=== PATIENT | female | born 1970 | race African-American/Black ===

== ENCOUNTER 2019-10-28 14:27 | Emergency (ER) | payer SELFPAY ==
[2019-10-28 14:40] VITALS: BP 157/79; PULSE 67; RESP 18; TEMP 37.4; O2SAT 100
--- NOTE | 2019-10-28 15:16 | ED.FEMALEGU ---
HPI - Female Genitourinary General Chief complaint: Upper Respiratory Infection Stated complaint: UTI Time Seen by Provider: 10/28/19 14:57 Source: patient and RN notes reviewed Mode of arrival: ambulatory Limitations: no limitations History of Present Illness HPI Narrative: Patient presents today complaining of urinary frequency for the past 2 weeks. Denies dysuria, urgency, abdominal pain, back pain. She has had a menstrual cycle every day for the last 6 weeks due to uterine fibroids that she is scheduled to have removed soon. MD elicited complaint: other (Urinary frequency) Related Data Home Medications Medication Instructions Recorded Confirmed clonazepam 0.5 mg PO DAILY 03/16/19 10/28/19 omeprazole 20 mg PO BID 03/16/19 10/28/19 thyroid (pork) [[place] Thyroid] 60 mg PO DAILY 03/16/19 10/28/19 hydroxyzine HCl 50 mg PO DIRECTED 10/28/19 10/28/19 ibuprofen 800 mg PO DIRECTED 10/28/19 10/28/19 norethindrone acetate 1 mg PO DAILY 10/28/19 10/28/19 quetiapine 25 mg PO DAILY 10/28/19 10/28/19 quetiapine 50 mg PO DAILY 10/28/19 10/28/19 Allergies Allergy/AdvReac Type Severity Reaction Status Date / Time hydrocodone Allergy Severe ANAPHYLAXIS Verified 11/26/17 03:34 codeine Allergy Unknown Other Verified 10/28/19 14:44 Dairy Allergy Severe RASH/INTESTINE Uncoded 11/26/17 03:34 INFECTION Review of Systems Review of Systems: Narrative: CONSTITUTIONAL: Denies body aches, fever, chills, or sweats. EYES: Denies visual changes, redness, or discharge. ENT: Denies rhinorrhea, congestion, sore throat, or otalgia. CARDIOVASCULAR: Denies chest pain, palpitations, or edema. RESPIRATORY: Denies cough or dyspnea. GASTROINTESTINAL: Denies abdominal pain, nausea, vomiting, or diarrhea. GENITOURINARY: Denies dysuria or hematuria.+ Frequency SKIN: Denies rash, itching, or wounds. MUSCULOSKELETAL: Denies back pain, joint pain, or myalgia. NEUROLOGIC: Denies headache, numbness, tingling, or weakness. PSYCH: Denies depression or anxiety. [facility] Past Medical History Medical History (Updated 10/28/19 @ 15:19 by Sarahy Garcia, [facility], ) Obesity Perimenopause Uterine fibroid Surgical History Surgical History Personal hx of gastric bypass Social History Social History (Updated 03/16/19 @ 17:55 by Keven Lee PA-C) Smoking status: Never smoker Alcohol intake: current Comments At time of signature, I have reviewed and agree with nursing past medical, surgical, social and family history unless otherwise noted. Please see nursing chart for further information. There is no relevant family history pertinent to the presenting complaint Exam Narrative: Exam Narrative: GENERAL: Well-appearing, well-nourished, and in no acute distress. HEAD: Normocephalic, atraumatic. EYES: EOMI. No redness or drainage. Conjunctivae normal. ENT: Mucous membranes pink and moist. NECK: Normal AROM. CHEST: No respiratory distress. Clear to auscultation. HEART: Regular rate and rhythm. No murmur appreciated. Normal peripheral pulses. ABDOMEN: Soft, nondistended, normal active bowel sounds. Mild tenderness to the suprapubic area. -CVAT MUSCULOSKELETAL: No bony tenderness. EXTREMITIES: Normal range of motion. No edema. SKIN: Warm, dry, no rash. Capillary refill normal. Normal skin turgor. NEURO: No focal deficits. Alert and oriented x3. Gait steady. PSYCH: Normal affect. No signs of depression or anxiety. Course Vital Signs Vital signs: Vital Signs Temperature 99.4 F 10/28/19 14:40 Pulse Rate 67 10/28/19 14:40 Respiratory Rate 18 10/28/19 14:40 Blood Pressure 157/79 H 10/28/19 14:40 Pulse Oximetry 100 10/28/19 14:40 Temperature 99.4 F 10/28/19 14:40 Pulse Rate 67 10/28/19 14:40 Respiratory Rate 18 10/28/19 14:40 Blood Pressure 157/79 H 10/28/19 14:40 Pulse Oximetry 100 10/28/19 14:40 Reviewed. Pt has been instructed to foll
== END 2019-10-28 15:20 | disposition home or self-care (01) ==
PROVIDERS: Emergency Provider Nurse Practitioner; PCP Family Medicine
DX: R35.0 Frequency of micturition (principal); Z98.84 Bariatric surgery status
CPT/HCPCS: 81003; 87086; 87088; 99213; G0463

== ENCOUNTER 2020-01-22 16:08 | Emergency (ER) | payer BC, MEDICAID, SELFPAY ==
--- NOTE | ~2020-01-22 | XR_ITS ---
EXAMINATION: XR knee RT 3V DATE: 01/22/2020 18:42 INDICATION: Right knee pain. Fall. TECHNIQUE: 3 views of right knee on 4 radiographs were obtained. COMPARISON: Right knee radiographs 03/23/16 FINDINGS: Bone alignment is normal. No fracture. There is moderate osteoarthritis of medial and lu lofemoral compartments and mild osteoarthritis of lateral compartment. There is a small knee joint ef fusion. IMPRESSION: 1. Moderate right knee osteoarthritis. 2. Small right knee joint effusion. Reviewed, dictated and finalized at location A. CAL INVESTIGATOR
[2020-01-22 16:11] VITALS: BP 133/80; PULSE 98; RESP 16; TEMP 36.5; O2SAT 99
--- NOTE | 2020-01-22 19:25 | ED.GENADULT ---
HPI - General Adult General Chief complaint: Recheck/Abnormal Lab/Rx <Dina Molina PA-C - Last Filed: 01/22/20 19:30> Stated complaint: needs medication refill <Dina Molina PA-C - Last Filed: 01/22/20 19:30> Time Seen by Provider: 01/22/20 17:41 <Dina Molina PA-C - Last Filed: 01/22/20 19:30> Source: patient <LULU Muller Last Filed: 01/22/20 19:30> Mode of arrival: ambulatory <LULU Muller Last Filed: 01/22/20 19:30> Limitations: no limitations <LULU Muller Last Filed: 01/22/20 19:30> History of Present Illness HPI narrative: Patient presents with chief complaint of pain to the right knee after falling onto it a few days ago. Patient states that she is wearing her knee wrap which she uses as needed due to her arthritic pain. Patient also came to the emergency department for refill of her clonazepam. She states she was discharged from [facility] on and her clonazepam was not given back to her. Patient denies any other injuries or concerns. <Dina Molina PA-C - Last Filed: 01/22/20 19:30> Related Data Home medications: Home Medications Medication Instructions Recorded Confirmed clonazepam 0.5 mg PO DAILY 03/16/19 10/28/19 omeprazole 20 mg PO BID 03/16/19 10/28/19 thyroid (pork) [[place] Thyroid] 60 mg PO DAILY 03/16/19 10/28/19 hydroxyzine HCl 50 mg PO DIRECTED 10/28/19 10/28/19 ibuprofen 800 mg PO DIRECTED 10/28/19 10/28/19 norethindrone acetate 1 mg PO DAILY 10/28/19 10/28/19 quetiapine 25 mg PO DAILY 10/28/19 10/28/19 quetiapine 50 mg PO DAILY 10/28/19 10/28/19 <LULU Muller Last Filed: 01/22/20 19:30> Allergies/adverse reactions: Allergies Allergy/AdvReac Type Severity Reaction Status Date / Time hydrocodone Allergy Severe ANAPHYLAXIS Verified 01/22/20 17:55 codeine Allergy Unknown Other Verified 01/22/20 17:55 Dairy Allergy Severe RASH/INTESTINE Uncoded 11/26/17 03:34 INFECTION <Dina Molina PA-C - Last Filed: 01/22/20 19:30> Review of Systems Review of Systems: Narrative: CONSTITUTIONAL: Denies fever, chills, or sweats. EYES: Denies visual changes, redness, or discharge. ENT: Denies rhinorrhea, congestion, sore throat, or otalgia. CARDIOVASCULAR: Denies chest pain, palpitations, or edema. RESPIRATORY: Denies cough or dyspnea. GASTROINTESTINAL: Denies abdominal pain, nausea, vomiting, or diarrhea. GENITOURINARY: Denies dysuria or hematuria. SKIN: Denies rash or itching. MUSCULOSKELETAL: Reports right knee pain denies back pain or myalgia. NEUROLOGIC: Denies headache, numbness, dizziness, or weakness. PSYCHIATRIC: Denies anxiety or depression. <Dina Molina PA-C - Last Filed: 01/22/20 19:30> PMFSH Past Medical History Medical History: Medical History (Updated 01/23/20 @ 00:00 by Lico Burnham) Obesity Perimenopause Uterine fibroid <Dina Molina PA-C - Last Filed: 01/22/20 19:30> Surgical History Surgical History: Surgical History Personal hx of gastric bypass <Dina Molina PA-C - Last Filed: 01/22/20 19:30> Social History Social History: Social History (Updated 03/16/19 @ 17:55 by Keven Lee PA-C) Smoking status: Never smoker Alcohol intake: current Gender identity (if verbalized by the patient): Female <Dina Molina PA-C - Last Filed: 01/22/20 19:30> Exam Narrative: Exam Narrative: GENERAL: Well-appearing, well-nourished, and in no acute distress. HEAD: Normocephalic, atraumatic. EYES: PERRLA and EOMI. ENT: Nares clear, no rhinorrhea or epistaxis. Mucous membranes moist. NECK: Supple. No adenopathy or masses. No carotid bruits or JVD CHEST: Clear to auscultation. No respiratory distress. No wheezes rales or rhonchi HEART: Regular rate and rhythm. EXTREMITIES: Normal range of motion. Minimal edema to right knee. No ecchymosis open wo
== END 2020-01-22 20:01 | disposition home or self-care (01) ==
PROVIDERS: Emergency Provider Emergency Medicine; PCP Family Medicine
DX: M25.561 Pain in right knee (principal); Z76.0 Encounter for issue of repeat prescription; Z98.84 Bariatric surgery status; M17.11 Unilateral primary osteoarthritis, right knee; W19.XXXA Unspecified fall, initial encounter
CPT/HCPCS: 73562; 99283

== ENCOUNTER 2021-11-04 07:45 | Emergency (ER) | payer OTHER, MEDICAID, SELFPAY ==
[2021-11-04] VITALS (25 sets, daily range): BP systolic 119–138; BP diastolic 58–88; PULSE 88–106; RESP 16–30; TEMP 36.5; O2SAT 96–100
--- NOTE | ~2021-11-04 | XR_ITS ---
EXAMINATION: XR chest 2V DATE: 11/04/2021 08:25 INDICATION: Shortness of breath TECHNIQUE: AP and lateral views of the chest are obtained. COMPARISON: 09/05/2015 FINDINGS: There are airspace opacities of the left upper lobe, lingula, right middle lobe, and right lower lobe. No pleural effusion or pneumothorax. The cardiomediastinal silhouette is normal. There is moderate thoracic spondylosis. Surgical changes are noted in the upper abdomen. IMPRESSION: 1. Bilateral airspace opacities which could reflect pneumonia or possibly asymmetric pulmonary edema. Reviewed, dictated and finalized at location A. IMPRESSION: 1. Bilateral airspace opacities which could reflect pneumonia or possibly asymm etric pulmonary edema.
--- NOTE | ~2021-11-04 | CT_ITS ---
EXAMINATION: CT brain wo con INDICATION: Dizziness COMPARISON: 10/03/2014 TECHNIQUE: Standard unenhanced head CT. The dose-length product (DLP) was 605.33 mGy-cm. The mA was a djusted according to patient size. Iterative reconstruction technique was employed. FINDINGS: There is no intracranial hemorrhage, acute infarction, or abnormal mass lesion. There is ch ronic encephalomalacia in the posterior aspect of the left parieto-occipital lobe. 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 The ventricles are normal. There is no abnormal mass effect or m idline shift. The khan-white matter differentiation is normal. The basal cisterns are patent. The orb its are normal. There is moderate opacification of the left maxillary sinus. There is mild mucosal th ickening of the remaining paranasal sinuses. IMPRESSION: 1. Areas of prior infarct without acute intracranial abnormality. Reviewed, dictated and finalized at location A.
--- NOTE | ~2021-11-04 | CT_ITS ---
EXAMINATION: CTA chest PE protocol DATE: 11/04/2021 10:39 CDT INDICATION: Elevated d-dimer. TECHNIQUE: Computed tomographic angiography (CTA) of the chest was performed with 100 mL Omnipaque-35 0 intravenous contrast. The dose-length product was 289.29 mGy-cm. Maximum intensity projection 3D-re constructions of the aorta and other arteries were constructed by the technologist on a separate work station. COMPARISON: Chest dated 11/04/2021. FINDINGS: Study is technically adequate without evidence for pulmonary embolism. No evidence for aort ic aneurysm or dissection. Moderate size hiatal hernia. There are changes of gastric bypass surgery. There is right hilar lymphadenopathy, likely reactive. No significant pleural or pericardial effusion . There is extensive bilateral groundglass opacification with multiple focal areas of airspace consol idation bilaterally, consistent with pneumonia. No endobronchial lesions. No pneumothorax. Mild thora cic spondylosis. No acute osseous abnormality. IMPRESSION: 1. Extensive bilateral mixed groundglass opacification and airspace consolidation, consistent with pn eumonia. 2: Right hilar lymphadenopathy, likely reactive. 3: No evidence for pulmonary embolism. Reviewed, dictated and finalized at location B. IMPRESSION: 1. Extensive bilateral mixed groundglass opacification and airspace consolidati on, consistent with pneumonia. 2: Right hilar lymphadenopathy, likely reactive. 3: No evidence for pulmonary embolism.
--- NOTE | 2021-11-04 07:47 | ECG_ITS ---
Measurements Intervals [place] Rate: 102 P: 52 VA: 125 QRS: -11 QRSD: 98 T: 123 QT: 284 QTc: 371 Interpretive Statements SINUS TACHYCARDIA NONSPECIFIC T-WAVE ABNORMALITY ABNORMAL ECG NO PREVIOUS ECG AVAILABLE FOR COMPARISON Electronically Signed On 11-04-2021 9:39:36 CDT by Eric Jasmine M.D.
--- NOTE | 2021-11-04 07:54 | ED.GENADULT ---
HPI - General Adult General Chief complaint: Shortness of Breath/Dyspnea Stated complaint: INCREASED WOB, WEAKNESS Time Seen by Provider: 11/04/21 07:48 History of Present Illness HPI narrative: 51-year-old female presenting to the emergency department for evaluation of intermittent dizziness and shortness of breath. Patient states over the last month she has had multiple episodes where she feels dizzy and lightheaded. Patient states the episode this morning was more significant. Patient does have a prior history of a subdural hematoma and history of schizoaffective disorder. Patient does report associated shortness of breath. Patient denies any fevers. Related Data Home Medications Medication Instructions Recorded Confirmed thyroid (pork) 60 mg tablet 60 mg PO DAILY 03/16/19 09/28/21 ([place] Thyroid) hydroxyzine HCl 50 mg tablet 50 mg PO QID 10/28/19 09/28/21 ibuprofen 800 mg tablet 800 mg PO DIRECTED 10/28/19 09/28/21 quetiapine 25 mg tablet 25 mg PO DAILY 10/28/19 10/28/19 quetiapine 50 mg tablet 50 mg PO DAILY 10/28/19 09/28/21 Allergies Allergy/AdvReac Type Severity Reaction Status Date / Time hydrocodone Allergy Severe ANAPHYLAXIS Verified 11/04/21 08:52 codeine Allergy Unknown Other Verified 11/04/21 08:52 Dairy Allergy Severe RASH/INTESTINE Uncoded 09/28/21 15:06 INFECTION Review of Systems Review of Systems: CONSTITUTIONAL: Denies fever, chills, or sweats. EYES: Denies visual changes, redness, or discharge. ENT: Denies rhinorrhea, congestion, sore throat, or otalgia. CARDIOVASCULAR: Denies chest pain, palpitations, or edema. RESPIRATORY: Shortness of breath GASTROINTESTINAL: Denies abdominal pain, nausea, vomiting, or diarrhea. GENITOURINARY: Denies dysuria or hematuria. SKIN: Denies rash or itching. MUSCULOSKELETAL: Denies back pain, joint pain, or myalgia. NEUROLOGIC: Headache PSYCHIATRIC: Schizoaffective disorder [facility] Past Medical History Medical History Dysuria Insomnia Obesity Perimenopause Uterine fibroid Surgical History Surgical History History of gynecologic surgery 3 yrs ago 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 Personal hx of gastric bypass Social History Social History (Updated 09/28/21 @ 15:08 by Caitlin Coulter MA) Smoking status: Never smoker Alcohol intake: never Substance use: never Substance use type: does not use Gender identity (if verbalized by the patient): Female Exam Narrative: APPEARANCE: Well appearing, no pain, no distress, well-nourished. HEAD: normocephalic, atraumatic. EYES: PERRLA/EOMI, conjunctivae clear. NOSE: Normal no drainage THROAT: Pharynx clear, no exudate. NECK: Supple. No adenopathy, no masses. RESPIRATORY: Airway patent, respirations nonlabored. Clear to auscultation bilaterally, no rales, rhonchi, wheezing. CARDIOVASCULAR: Regular rate and rhythm without murmurs rubs or gallops. ABDOMINAL: Soft, nontender, nondistended, normal bowel sounds MUSCULOSKELETAL: Moves all extremities. Strength/ROM intact, No edema, No calf tenderness. NEURO: Alert. Cranial nerves II through XII intact. SKIN: Warm, dry. Normal Color Course Course Emergency Course: X-ray showed evidence of a pneumonia. Patient was started on antibiotics and emergency permit. Patient was updated the results of her work-up. All questions and concerns were addressed. Patient was well-appearing at time of discharge. Vital Signs Vital signs: Vital Signs Temperature 97.7 F 11/04/21 07:47 Pulse Rate 105 H 11/04/21 07:47 Respiratory Rate 24 H 11/04/21 07:47 Blood Pressure 138/58 L 11/04/21 07:47 Pulse Oximetry 98 11/04/21 07:47 Oxygen Delivery Room Air 11/04/21 07:47 Temperature 97.7 F 11/04/21 07:47 Pulse Rate 88 11/04/21 12:12 Respiratory Rate 16 11/04/21 12:12 Blood Pressure 132/86 11/04/21 12:12 Pulse Oximetry 98 11/04/21 12:1
[2021-11-04 08:28] LABS: Basophils Percent Auto 0.4 % (0.2-1.2); Eosinophils Absolute Auto 0.1 K/mm3 (0-0.3); Eosinophils Percent Auto 1.6 % (0-4.4); Immature Granulocyte Absolute 0.03 K/mm3 (0.00-0.031); Immature Granulocyte Percent A 0.4 % (0-0.5); Lymphocytes Absolute Auto 0.88 K/mm3 (0.9-3.2); Lymphocytes Percent Auto 11.8 % (18.3-44.2); Mean Corpuscular HGB Conc 31.4 g/dl (32-36); Mean Corpuscular Hemoglobin 28.3 pg (26-34); Mean Platelet Volume 10.1 fl (7.4-10.4); Monocytes Absolute Auto 0.4 K/mm3 (0.1-0.6); Monocytes Percent Auto 5.4 % (2.6-8.5); Neutrophils Percent Auto 80.4 % (45.5-73.1); Platelet Count Result 320 k/mm3 (150-375); Red Blood Count 3.89 M/mm3 (4.2-5.4); Red Cell Distribution Width 15.9 % (11.5-14.5); White Blood Count 7.4 K/mm3 (4.5-10.0)
[2021-11-04 08:40] LABS: Alanine Aminotransferase 81 U/L (6-35); Albumin Level 3.4 g/dL (3.5-5.1); Alkaline Phosphatase 70 U/L (38-126); Anion Gap 9 mmol/L (8-16); Aspartate Amino Transferase 36 U/L (14-36); Bilirubin,Total 0.7 mg/dL (0.2-1.3); Blood Urea Nitrogen 10 mg/dL (7-17); Carbon Dioxide 20 mmol/L (22-30); Chloride 106 mmol/L (98-107); Estimated CRCL calculation 52 ml/min; Estimated Glomerular Filt Rate 53; Glucose 178 mg/dL (65-110); Potassium 3.7 mmol/L (3.4-5.0); Sodium 135 mmol/L (137-145)
[2021-11-04 09:12] LABS: SARS-CoV-2 RNA PCR Negative
[2021-11-04 09:38] LABS: D Dimer 1.01 ug/mL (<0.48)
[2021-11-04] MEDS: AMOXICILLIN/CLAVULANATE K 500-125 MG TAB 1 TABLET PO (12:04)
== END 2021-11-04 12:13 | disposition home or self-care (01) ==
PROVIDERS: Emergency Provider Emergency Medicine; PCP Family Medicine
DX: J18.9 Pneumonia, unspecified organism (principal); Z20.822 Contact with and (suspected) exposure to COVID-19; E66.9 Obesity, unspecified; Z68.31 Body mass index [BMI] 31.0-31.9, adult; Z98.84 Bariatric surgery status
CPT/HCPCS: 36415; 70450; 71046; 71275; 80053; 85025; 85380; 93005; 99284; A9270; C9803; Q9967; U0003; U0005

== ENCOUNTER 2021-11-11 17:49 | Emergency (ER) | payer OTHER, MEDICAID, SELFPAY ==
--- NOTE | ~2021-11-11 | XR_ITS ---
EXAMINATION: XR chest 2V DATE: 11/11/2021 18:12 INDICATION: Pneumonia TECHNIQUE: PA and lateral views of the chest were obtained. COMPARISON: Chest radiograph and CT dated 11/04/2021 FINDINGS: Interval improvement in the previously more dense airspace opacities in the left mid and lower lung z one. There has however been some increase in airspace opacities in the right mid and lower lung zones . No pleural effusion or pneumothorax. The cardiomediastinal silhouette is normal. Surgical clips in the left upper quadrant. Mild thoracic spondylosis with chronic appearing mild anterior wedging of a couple mid thoracic vertebral bodies. IMPRESSION: 1. Opacities in the bilateral mid and lower lung zones consistent with pneumonia with interval improv ement on the left and worsening on the right. Reviewed, dictated and finalized at location A. IMPRESSION: 1. Opacities in the bilateral mid and lower lung zones consistent with pneumoni a with interval improvement on the left and worsening on the right.
[2021-11-11 17:48] VITALS: BP 125/66; PULSE 87; RESP 16; TEMP 36.8; O2SAT 98
--- NOTE | 2021-11-11 17:53 | ECG_ITS ---
Measurements Intervals [place] Rate: 78 P: 50 MI: 169 QRS: -12 QRSD: 97 T: 58 QT: 311 QTc: 354 Interpretive Statements SINUS RHYTHM POOR R-WAVE PROGRESSION NONSPECIFIC T-WAVE ABNORMALITY COMPARED TO ECG 11/04/2021 07:49:43 SINUS RHYTHM NOW PRESENT Electronically Signed On 11-12-2021 12:41:45 CDT by Travis Gaona M.D.
--- NOTE | 2021-11-11 17:57 | ED.SOB ---
HPI - SOB/Dyspnea General Chief Complaint: Shortness of Breath/Dyspnea <LULU Maddox Last Filed: 11/12/21 01:21> Stated Complaint: dyspnea <LULU Maddox Last Filed: 11/12/21 01:21> Time Seen by Provider: 11/11/21 17:53 <LULU Maddox Last Filed: 11/12/21 01:21> Source: patient and old records reviewed <LULU Maddox Last Filed: 11/12/21 01:21> Mode of arrival: EMS <LULU Maddox Last Filed: 11/12/21 01:21> Limitations: no limitations <LULU Maddox Last Filed: 11/12/21 01:21> History of Present Illness HPI Narrative: Patient is a 51-year-old female who presents to the ED via EMS with report of fatigue/weakness. Per patient's records, she was diagnosed with pneumonia on 11/04 and started on Augmentin. She reports she finished the antibiotics, but over the last couple days, has had increasing fatigue, weakness, productive cough, occasional lightheadedness. She notes production of green phlegm with her cough. Denies any fever. Denies difficulty breathing. Denies chest pain. Does report lower chest wall pain with coughing. No pain at rest. No significant rhinorrhea, congestion, sore throat, abdominal pain, N/V. <LULU Maddox Last Filed: 11/12/21 01:21> Related Data Home Medications: Home Medications Medication Instructions Recorded Confirmed thyroid (pork) 60 mg tablet 60 mg PO DAILY 03/16/19 09/28/21 ([place] Thyroid) hydroxyzine HCl 50 mg tablet 50 mg PO QID 10/28/19 09/28/21 ibuprofen 800 mg tablet 800 mg PO DIRECTED 10/28/19 09/28/21 quetiapine 25 mg tablet 25 mg PO DAILY 10/28/19 10/28/19 quetiapine 50 mg tablet 50 mg PO DAILY 10/28/19 09/28/21 <LULU Maddox Last Filed: 11/12/21 01:21> Allergies/Adverse Reactions: Allergies Allergy/AdvReac Type Severity Reaction Status Date / Time hydrocodone Allergy Severe ANAPHYLAXIS Verified 11/04/21 08:52 codeine Allergy Unknown Other Verified 11/04/21 08:52 Dairy Allergy Severe RASH/INTESTINE Uncoded 09/28/21 15:06 INFECTION <Danica Montes PA-C - Last Filed: 11/12/21 01:21> Review of Systems Review of Systems: CONSTITUTIONAL: Reports fatigue. Denies fever, chills, or sweats. ENT: Denies rhinorrhea, congestion, sore throat. CARDIOVASCULAR: Denies chest pain. RESPIRATORY: Reports productive cough, lower rib pain with coughing. Denies dyspnea. GASTROINTESTINAL: Denies abdominal pain, nausea, vomiting, or diarrhea. NEUROLOGIC: Reports generalized weakness, lightheadedness. Denies headache, numbness. <Danica Montes PA-C - Last Filed: 11/12/21 01:21> All systems reviewed & are unremarkable except as noted in HPI and below <Danica Montes PA-C - Last Filed: 11/12/21 01:21> [facility] Past Medical History Medical History: Medical History Dysuria Insomnia Obesity Perimenopause Uterine fibroid <Danica Montes PA-C - Last Filed: 11/12/21 01:21> Surgical History Surgical History: Surgical History History of gynecologic surgery 3 yrs ago 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 Personal hx of gastric bypass <Danica Montes PA-C - Last Filed: 11/12/21 01:21> Social History Social History: Social History Smoking status: Never smoker Alcohol intake: never Substance use: never Substance use type: does not use Gender identity (if verbalized by the patient): Female <Danica Montes PA-C - Last Filed: 11/12/21 01:21> Exam Narrative: GENERAL: Well appearing, well-nourished, non-toxic, in no acute distress. HEAD: Normocephalic, atraumatic. NECK: Supple. No adenopathy, no masses. RESPIRATORY: Airway patent, respirations nonlabored. Mild rales heard with auscu
[2021-11-11 18:51] LABS: Basophils Absolute Auto 0.1 K/mm3 (0.0-0.1); Basophils Percent Auto 0.4 % (0.2-1.2); Eosinophils Absolute Auto 0.4 K/mm3 (0-0.3); Eosinophils Percent Auto 3.4 % (0-4.4); Hematocrit 34.9 % (37.0-47.0); Immature Granulocyte Percent A 0.8 % (0-0.5); Lymphocytes Absolute Auto 2.51 K/mm3 (0.9-3.2); Lymphocytes Percent Auto 19.5 % (18.3-44.2); Mean Corpuscular HGB Conc 31.5 g/dl (32-36); Mean Corpuscular Volume 88.8 fl (80-100); Mean Platelet Volume 10.5 fl (7.4-10.4); Monocytes Absolute Auto 0.7 K/mm3 (0.1-0.6); Monocytes Percent Auto 5.6 % (2.6-8.5); Neutrophils Absolute Auto 9.1 K/mm3 (1.3-6.7); Neutrophils Percent Auto 70.3 % (45.5-73.1); Platelet Count Result 349 k/mm3 (150-375); Red Blood Count 3.93 M/mm3 (4.2-5.4); Red Cell Distribution Width 15.9 % (11.5-14.5); White Blood Count 12.9 K/mm3 (4.5-10.0)
[2021-11-11 20:16] LABS: Alanine Aminotransferase 73 U/L (6-35); Albumin Level 3.6 g/dL (3.5-5.1); Alkaline Phosphatase 73 U/L (38-126); Anion Gap 9 mmol/L (8-16); Aspartate Amino Transferase 30 U/L (14-36); Bilirubin,Total 0.4 mg/dL (0.2-1.3); Blood Urea Nitrogen 11 mg/dL (7-17); Calcium 8.5 mg/dL (8.4-10.2); Carbon Dioxide 21 mmol/L (22-30); Chloride 107 mmol/L (98-107); Estimated CRCL calculation 52 ml/min; Estimated Glomerular Filt Rate 53; Glucose 90 mg/dL (65-110); Potassium 4.1 mmol/L (3.4-5.0); Sodium 137 mmol/L (137-145)
[2021-11-11 20:21] VITALS: PULSE 83; O2SAT 97
[2021-11-11 20:25] VITALS: PULSE 92; O2SAT 96
[2021-11-11] MEDS: DOXYCYCLINE HYCLATE 100 MG TABLET PO (21:05)
[2021-11-11 21:07] VITALS: BP 142/77; PULSE 80; RESP 16; O2SAT 100
== END 2021-11-11 21:14 | disposition home or self-care (01) ==
PROVIDERS: Emergency Provider Emergency Medicine; PCP Family Medicine
DX: J18.9 Pneumonia, unspecified organism (principal); Z98.84 Bariatric surgery status; E66.9 Obesity, unspecified; Z68.29 Body mass index [BMI] 29.0-29.9, adult; R94.31 Abnormal electrocardiogram [ECG] [EKG]
CPT/HCPCS: 36415; 71046; 80053; 85025; 87040; 93005; 99284; A9270

== ENCOUNTER 2022-01-13 16:32 | Emergency (ER) | payer BC, MEDICAID, SELFPAY ==
--- NOTE | ~2022-01-13 | XR_ITS ---
EXAMINATION: XR chest 2V DATE: 01/13/2022 17:32 INDICATION: Cough TECHNIQUE: PA and lateral views of the chest are obtained. COMPARISON: 11/11/2021 FINDINGS: There are minimal airspace opacities in the right middle lobe. No pleural effusion or pneum othorax. The cardiomediastinal silhouette is normal. There is mild thoracic spondylosis. Surgical cli ps are noted in the left upper quadrant. Bilateral breast implants are noted. IMPRESSION: 1. Minimal airspace opacities of the right middle lobe, consistent with atelectasis versus pneumonia. Reviewed, dictated and finalized at location A. IMPRESSION: 1. Minimal airspace opacities of the right middle lobe, consistent with atelect asis versus pneumonia.
[2022-01-13 16:44] VITALS: BP 155/86; PULSE 82; RESP 16; TEMP 37.1; O2SAT 100
--- NOTE | 2022-01-13 17:05 | ED.URI ---
HPI - URI/Sore Throat General Chief Complaint: Upper Respiratory Infection Stated Complaint: uri Time Seen by Provider: 01/13/22 17:06 Source: patient, RN notes reviewed and old records reviewed Mode of arrival: ambulatory Limitations: no limitations History of Present Illness HPI Narrative: 51-year-old female presents to the [facility] with complaints of cough, fevers, for 4 days. Reports body aches, nasal drainage. Patient states it feels like her cough just needs to loosen up. Nonproductive however. Has felt feverish. No treatment prior to arrival. Related Data Home Medications Medication Instructions Recorded Confirmed thyroid (pork) 60 mg tablet 60 mg PO DAILY 03/16/19 09/28/21 ([place] Thyroid) hydroxyzine HCl 50 mg tablet 50 mg PO QID 10/28/19 09/28/21 ibuprofen 800 mg tablet 800 mg PO DIRECTED 10/28/19 09/28/21 quetiapine 25 mg tablet 25 mg PO DAILY 10/28/19 10/28/19 quetiapine 50 mg tablet 50 mg PO DAILY 10/28/19 09/28/21 amitriptyline 50 mg tablet mg 01/13/22 linaclotide 290 mcg capsule mcg 01/13/22 (Linzess) metformin 500 mg tablet,extended mg PO 01/13/22 release 24 hr Allergies Allergy/AdvReac Type Severity Reaction Status Date / Time hydrocodone Allergy Severe ANAPHYLAXIS Verified 01/13/22 16:46 codeine Allergy Unknown Other Verified 01/13/22 16:46 Dairy Allergy Severe RASH/INTESTINE Uncoded 01/13/22 16:46 INFECTION Review of Systems Review of Systems: All systems reviewed & are unremarkable except as noted in HPI and below Constitutional: Constitutional: Reports as per HPI, Reports chills, Reports fatigue and Reports fever(s) Eyes: Eyes: Reports no additional eye complaints ENT: Reports as per HPI Cardiovascular: Cardiovascular: Reports no additional cardiovascular complaints Respiratory: Respiratory: Reports as per HPI, Reports chest congestion and Reports cough Gastrointestinal: Gastrointestinal: Reports no additional gastrointestinal complaints Musculoskeletal: Musculoskeletal: Reports no additional musculoskeletal complaints Integumentary/Breasts: Skin/Breast: Reports system reviewed and no additional complaints, except as docu Neurologic: Reports system reviewed and no additional complaints, except as documented Psychiatric: Psychiatric: Reports no additional psychiatric complaints Allergic/Immunologic: Allergic/Immunologic: Reports no additional allergic/immunologic complaints PMFSH Past Medical History Medical History Dysuria Insomnia Obesity Perimenopause Uterine fibroid Surgical History Surgical History History of gynecologic surgery 3 yrs ago 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 Personal hx of gastric bypass Social History Social History Smoking status: Never smoker Alcohol intake: never Substance use: never Substance use type: does not use Gender identity (if verbalized by the patient): Female Comments At the time of my signature, I reviewed and agree with the nursing past medical, surgical, social, and family history. There is no relevant family history pertinent to the patient complaint. Exam Const: General: healthy appearing, no acute distress, alert and well nourished Nutritional Appearance: well nourished Orientation/consciousness: patient oriented x3 Limitations: no limitations HENMT: Head: normal to inspection Ears: external ears normal, TM's normal bilaterally and EAC's normal Face/Nose/Sinus: Normal external nose present and Normal nares present Face and sinus: normal facial exam Mouth: Yes Normal oral and palatal mucosa present, Yes lip normal and Yes moist mucous membranes Throat: posterior oropharynx normal and uvula midline Eyes: General: appearance normal, both eyes and all related structures Conjunctivae: conjunctivae normal Pupils: Equal, round and re
== END 2022-01-13 18:00 | disposition home or self-care (01) ==
PROVIDERS: Emergency Provider Nurse Practitioner
DX: U07.1 COVID-19 (principal); J12.82 Pneumonia due to coronavirus disease 2019
CPT/HCPCS: 71046; 87081; 87426; 87804; 87880; 99213; C9803; G0463

== ENCOUNTER 2022-01-18 09:08 | Emergency (ER) | payer BC, MEDICAID, SELFPAY ==
[2022-01-18] VITALS (7 sets, daily range): BP systolic 134–146; BP diastolic 79–90; PULSE 81–92; RESP 13–21; TEMP 36.9; O2SAT 98–100
--- NOTE | ~2022-01-18 | XR_ITS ---
EXAMINATION: XR chest 1V portable DATE: 01/18/2022 10:56 INDICATION: EXAMINATION: XR chest 1V portable DATE: 01/18/2022 10:56 INDICATION: Cough and shortness of breath. TECHNIQUE: A single frontal view of the chest was obtained. COMPARISON: Chest 2 views 01/13/2022, chest CT 11/04/2021 FINDINGS: There are airspace opacities in the mid and lower lung zones. No pleural effusion or pneumo thorax. The heart size is normal. IMPRESSION: 1. Stable airspace opacities in the mid and lower lung zones, consistent with atelectasis versus pneu monia. TECHNIQUE: A single frontal view of the chest was obtained. COMPARISON: None. FINDINGS: IMPRESSION: 1. Reviewed, dictated and finalized at location A. IMPRESSION: 1. Stable airspace opacities in the mid and lower lung zones, consistent with a telectasis versus pneumonia. TECHNIQUE: A single frontal view of the chest was obtained. COMPARISON: None. FINDINGS: IMPRESSION: 1.
--- NOTE | 2022-01-18 10:21 | ED.GENADULT ---
HPI - General Adult General Chief complaint: Upper Respiratory Infection Stated complaint: COVID 01/14/22 PNA Time Seen by Provider: 01/18/22 09:16 History of Present Illness HPI narrative: 51-year-old female presenting to the emergency department for evaluation of worsening body aches fatigue cough and congestion. Patient was diagnosed with COVID on 01/13. Patient does have prior history of bacterial pneumonia and was on antibiotics by her primary care physician. Patient states that she has completed those but still has symptoms. Patient did have a prior COVID-vaccine. Patient never had COVID prior to this current infection. Patient is a smoker. Related Data Home Medications Medication Instructions Recorded Confirmed thyroid (pork) 60 mg tablet 60 mg PO DAILY 03/16/19 09/28/21 ([place] Thyroid) hydroxyzine HCl 50 mg tablet 50 mg PO QID 10/28/19 09/28/21 ibuprofen 800 mg tablet 800 mg PO DIRECTED 10/28/19 09/28/21 quetiapine 25 mg tablet 25 mg PO DAILY 10/28/19 10/28/19 quetiapine 50 mg tablet 50 mg PO DAILY 10/28/19 09/28/21 amitriptyline 50 mg tablet mg 01/13/22 linaclotide 290 mcg capsule mcg 01/13/22 (Linzess) metformin 500 mg tablet,extended mg PO 01/13/22 release 24 hr Allergies Allergy/AdvReac Type Severity Reaction Status Date / Time hydrocodone Allergy Severe ANAPHYLAXIS Verified 01/18/22 09:23 codeine Allergy Unknown Other Verified 01/18/22 09:23 ibuprofen AdvReac Other Verified 01/18/22 09:23 Dairy Allergy Severe RASH/INTESTINE Uncoded 01/18/22 09:23 INFECTION Review of Systems Review of Systems: CONSTITUTIONAL: Denies fever, chills, or sweats. EYES: Denies visual changes, redness, or discharge. ENT: Denies rhinorrhea, congestion, sore throat, or otalgia. CARDIOVASCULAR: Denies chest pain, palpitations, or edema. RESPIRATORY: See HPI GASTROINTESTINAL: Denies abdominal pain, nausea, vomiting, or diarrhea. GENITOURINARY: Denies dysuria or hematuria. SKIN: Denies rash or itching. MUSCULOSKELETAL: Denies back pain, joint pain, or myalgia. NEUROLOGIC: Denies headache, numbness, or weakness. [facility] Past Medical History Medical History Dysuria Insomnia Obesity Perimenopause Uterine fibroid Surgical History Surgical History History of gynecologic surgery 3 yrs ago 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 Personal hx of gastric bypass Social History Social History Smoking status: Never smoker Alcohol intake: never Substance use: never Substance use type: does not use Gender identity (if verbalized by the patient): Female Exam Narrative: APPEARANCE: Well appearing, no pain, no distress, well-nourished. HEAD: normocephalic, atraumatic. EYES: PERRLA/EOMI, conjunctivae clear. NOSE: Normal no drainage EARS:TMS clear with good light reflex. THROAT: Pharynx clear, no exudate. NECK: Supple. No adenopathy, no masses. RESPIRATORY: Airway patent, respirations nonlabored. Clear to auscultation bilaterally, no rales, rhonchi, wheezing. CARDIOVASCULAR: Regular rate and rhythm without murmurs rubs or gallops. ABDOMINAL: Soft, nontender, nondistended, normal bowel sounds MUSCULOSKELETAL: Moves all extremities. Strength/ROM intact, No edema, No calf tenderness. NEURO: Alert. Cranial nerves II through XII intact. Grossly intact SKIN: Warm, dry. Normal Color Course Course Emergency Course: Patient was updated on the fact that her pneumonia is most likely COVID-pneumonia. Patient was updated on the results of the work-up. Patient was comfortable plan with discharge and close follow-up. All questions and concerns were addressed. Vital Signs Vital signs: Vital Signs Temperature 98.4 F 01/18/22 09:14 Pulse Rate 92 01/18/22 09:14 Respiratory Rate 18 01/18/22 09:14 Blood Pressure 134/87 01/18/22 09:14 Pulse Oxim
[2022-01-18] MEDS: ALBUTEROL SULFATE NEB 2.5 MG/3 ML INH 5 MG INHALATION (10:32)
[2022-01-18 10:53] LABS: Basophils Percent Auto 0.5 % (0.2-1.2); Eosinophils Absolute Auto 0.2 K/mm3 (0-0.3); Eosinophils Percent Auto 2.5 % (0-4.4); Hematocrit 36.1 % (37.0-47.0); Hemoglobin 11.5 g/dL (12.0-15.0); Immature Granulocyte Absolute 0.02 K/mm3 (0.00-0.031); Immature Granulocyte Percent A 0.3 % (0-0.5); Lymphocytes Absolute Auto 2.38 K/mm3 (0.9-3.2); Lymphocytes Percent Auto 40.1 % (18.3-44.2); Mean Corpuscular HGB Conc 31.9 g/dl (32-36); Mean Corpuscular Volume 87.8 fl (80-100); Mean Platelet Volume 9.7 fl (7.4-10.4); Monocytes Absolute Auto 0.6 K/mm3 (0.1-0.6); Monocytes Percent Auto 10.3 % (2.6-8.5); Neutrophils Absolute Auto 2.8 K/mm3 (1.3-6.7); Neutrophils Percent Auto 46.3 % (45.5-73.1); Platelet Count Result 288 k/mm3 (150-375); Red Blood Count 4.11 M/mm3 (4.2-5.4); Red Cell Distribution Width 15.5 % (11.5-14.5); White Blood Count 5.9 K/mm3 (4.5-10.0)
[2022-01-18 11:04] LABS: Alanine Aminotransferase 42 U/L (6-35); Alkaline Phosphatase 81 U/L (38-126); Anion Gap 14 mmol/L (8-16); Aspartate Amino Transferase 31 U/L (14-36); Bilirubin,Total 0.4 mg/dL (0.2-1.3); Blood Urea Nitrogen 9 mg/dL (7-17); Calcium 8.7 mg/dL (8.4-10.2); Carbon Dioxide 21 mmol/L (22-30); Chloride 107 mmol/L (98-107); Estimated CRCL calculation 47 ml/min; Estimated Glomerular Filt Rate 48; Glucose 75 mg/dL (65-110); Potassium 3.7 mmol/L (3.4-5.0); Sodium 142 mmol/L (137-145)
== END 2022-01-18 11:51 | disposition home or self-care (01) ==
PROVIDERS: Emergency Provider Emergency Medicine; PCP Family Medicine
DX: U07.1 COVID-19 (principal)
CPT/HCPCS: 36415; 71045; 80053; 85025; 99283

== ENCOUNTER 2022-01-29 08:57 | Emergency (ER) | payer BC, MEDICAID, SELFPAY ==
[2022-01-29 09:17] VITALS: BP 102/75; PULSE 96; RESP 22; TEMP 37.3; O2SAT 100
--- NOTE | 2022-01-29 09:35 | ED.GENADULT ---
HPI - General Adult General Chief complaint: Shortness of Breath/Dyspnea Stated complaint: COVID Time Seen by Provider: 01/29/22 09:35 Source: patient Mode of arrival: ambulatory Limitations: no limitations History of Present Illness HPI narrative: 51-year-old female presents with complaint of continued cough, shortness of breath with exertion, low-grade fever, fatigue and generalized weakness. Reports mucus In chest that I cannot cough up . states that she was diagnosed with COVID January 13. Was told she had COVID pneumonia at that visit. Went to ER for shortness of breath on January 18 and was told that she did not have pneumonia. States she was prescribed albuterol inhaler January 13 that is gone And needs refill. Has appointment with her primary care physician in 3 days but since feeling worse wanted to be seen again. Patient speaking in full sentences, no respiratory distress. All systems reviewed and negative except as noted above. Related Data Home Medications Medication Instructions Recorded Confirmed thyroid (pork) 60 mg tablet 60 mg PO DAILY 03/16/19 09/28/21 ([place] Thyroid) hydroxyzine HCl 50 mg tablet 50 mg PO QID 10/28/19 09/28/21 ibuprofen 800 mg tablet 800 mg PO DIRECTED 10/28/19 09/28/21 quetiapine 25 mg tablet 25 mg PO DAILY 10/28/19 10/28/19 quetiapine 50 mg tablet 50 mg PO DAILY 10/28/19 09/28/21 amitriptyline 50 mg tablet mg 01/13/22 linaclotide 290 mcg capsule mcg 01/13/22 (Linzess) metformin 500 mg tablet,extended mg PO 01/13/22 release 24 hr Allergies Allergy/AdvReac Type Severity Reaction Status Date / Time hydrocodone Allergy Severe ANAPHYLAXIS Verified 01/29/22 09:16 codeine Allergy Unknown Other Verified 01/29/22 09:16 ibuprofen AdvReac Other Verified 01/29/22 09:16 Dairy Allergy Severe RASH/INTESTINE Uncoded 01/29/22 09:16 INFECTION Review of Systems Review of Systems: CONSTITUTIONAL: Reports fever. Denies chills, or sweats. Reports fatigue. EYES: Denies visual changes, redness, or discharge. ENT: Denies rhinorrhea, congestion, sore throat, or otalgia. CARDIOVASCULAR: Denies chest pain, palpitations, or edema. RESPIRATORY: reports cough and dyspnea on exertion. GASTROINTESTINAL: Denies abdominal pain, nausea, vomiting, or diarrhea. GENITOURINARY: Denies dysuria or hematuria. SKIN: Denies rash or itching. MUSCULOSKELETAL: Denies back pain, joint pain, or myalgia. NEUROLOGIC: Denies headache, numbness, or weakness. PSYCHIATRIC: Denies anxiety or depression. All other systems reviewed are negative, except as documented in HPI. [facility] Past Medical History Medical History Dysuria Insomnia Obesity Perimenopause Uterine fibroid Surgical History Surgical History History of gynecologic surgery 3 yrs ago 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 Personal hx of gastric bypass Social History Social History Smoking status: Never smoker Alcohol intake: never Substance use: never Substance use type: does not use Gender identity (if verbalized by the patient): Female Comments At time of signature, agree with nursing past medical, surgical, social and family history. There is no relevant family history pertinent to the presenting complaint. Exam Narrative: GENERAL: This is a well-nourished, well-developed patient, in no apparent distress. HEAD: normocephalic, atraumatic. EYES: PERRL. Sclera clear/white. Vision is grossly intact. EARS: External ears normal, auditory canals clear and without drainage, TMs normal without perforation. Hearing grossly intact. NOSE: External nose normal with no obvious nasal discharge, nares without redness, no rhinorrhea. THROAT: Mucous membranes moist, posterior pharynx clear. NECK: Neck supple, non-tender without lymphadenopathy, masses or thyromegaly.
== END 2022-01-29 09:50 | disposition left against medical advice (07) ==
PROVIDERS: Emergency Provider Nurse Practitioner Family; PCP Family Medicine
DX: R05.9 Cough, unspecified (principal); R06.09 Other forms of dyspnea; E66.9 Obesity, unspecified; Z68.28 Body mass index [BMI] 28.0-28.9, adult
CPT/HCPCS: 99213; G0463

== ENCOUNTER 2022-05-13 16:35 | Emergency (ER) | payer BC, MEDICAID, SELFPAY ==
--- NOTE | ~2022-05-13 | XR_ITS ---
EXAMINATION: XR chest 2V DATE: 05/13/2022 17:24 INDICATION: Shortness of breath. Cough. TECHNIQUE: Frontal and lateral views of the chest were obtained. COMPARISON: Chest single view 01/18/2022, chest CT 11/04/2021 FINDINGS: There are airspace opacities in the perihilar regions. No pleural effusion or pneumothorax. The heart size is normal. There are surgical clips in the abdomen. IMPRESSION: 1. Airspace opacities in the perihilar regions, consistent with pneumonia versus chronic lung disease . Reviewed, dictated and finalized at location A. LOADER IMPRESSION: 1. Airspace opacities in the perihilar regions, consistent with pneumonia versu s chronic lung disease.
[2022-05-13 16:48] VITALS: BP 145/77; PULSE 100; RESP 26; TEMP 38.3; O2SAT 100
--- NOTE | 2022-05-13 17:27 | ED.URI ---
HPI - URI/Sore Throat General Chief Complaint: Upper Respiratory Infection Stated Complaint: Cough/Wheezing Time Seen by Provider: 05/13/22 17:21 Source: patient Mode of arrival: ambulatory Limitations: no limitations History of Present Illness HPI Narrative: patient is a 51-year-old female presents with 3 days productive cough, body aches, fatigue, and congestion. patient was diagnosed this past fall but was never hospitalized. Patient concerned she could have again. patient reports she has coughing fits when she walks short distances. Related Data Home Medications Medication Instructions Recorded Confirmed thyroid (pork) 60 mg tablet 60 mg PO DAILY 03/16/19 09/28/21 ([place] Thyroid) hydroxyzine HCl 50 mg tablet 50 mg PO QID 10/28/19 09/28/21 ibuprofen 800 mg tablet 800 mg PO DIRECTED 10/28/19 09/28/21 quetiapine 25 mg tablet 25 mg PO DAILY 10/28/19 10/28/19 quetiapine 50 mg tablet 50 mg PO DAILY 10/28/19 09/28/21 amitriptyline 50 mg tablet mg 01/13/22 linaclotide 290 mcg capsule mcg 01/13/22 (Linzess) metformin 500 mg tablet,extended mg PO 01/13/22 release 24 hr buspirone 5 mg tablet mg 05/13/22 deutetrabenazine 12 mg tablet mg PO 05/13/22 (Austedo) lithium carbonate 300 mg tablet mg 05/13/22 risperidone 4 mg tablet mg 05/13/22 temazepam 30 mg capsule mg 05/13/22 topiramate 25 mg tablet mg 05/13/22 Allergies Allergy/AdvReac Type Severity Reaction Status Date / Time hydrocodone Allergy Severe ANAPHYLAXIS Verified 05/13/22 16:56 codeine Allergy Unknown Other Verified 05/13/22 16:56 ibuprofen AdvReac Other Verified 05/13/22 16:56 Dairy Allergy Severe RASH/INTESTINE Uncoded 05/13/22 16:56 INFECTION Review of Systems Review of Systems: CONSTITUTIONAL: reports malaise denies chills, sweats, or fever.? EYES: Denies visual changes, redness, or discharge.? ENT: Reports rhinorrhea, congestion and sore throat.? denies sinus pain, otalgia CARDIOVASCULAR: Denies chest pain, palpitations, or edema.? RESPIRATORY: Reports cough and dyspnea with exertion.? GASTROINTESTINAL: Denies abdominal pain, nausea, vomiting, diarrhea? SKIN: Denies rash or itching.? MUSCULOSKELETAL: Denies myalgia.? NEUROLOGIC: Denies headache All systems reviewed & are unremarkable except as noted in HPI and below PMFSH Past Medical History Medical History Dysuria Insomnia Obesity Perimenopause Uterine fibroid Surgical History Surgical History History of gynecologic surgery 3 yrs ago 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 Personal hx of gastric bypass Social History Social History Smoking status: Never smoker Alcohol intake: never Substance use: never Substance use type: does not use Living arrangements: alone Gender identity (if verbalized by the patient): Female Comments At time of signature, agree with nursing past medical, surgical, social and family history. There is no relevant family history pertinent to the presenting complaint? Exam Narrative: GENERAL: Well-appearing, well-nourished, and in no acute distress.? HEAD: Normocephalic, atraumatic.? EYES: PERRLA, conjunctivae clear, and EOMI. No nystagmus.? ENT: Nares clear, turbinates pink, no rhinorrhea or epistaxis. Mucous membranes moist. TM pearly khan with sharp light reflex bilaterally; no tragal tenderness. Oropharynx with erythema without lesions. Tonsils not enlarged and with exudate on right.? NECK: Supple. No lymphadenopathy. CHEST: No respiratory distress. Mild wheezing bilaterally.? No bony deformities, no asymmetry. Speaks in full sentences.? HEART: Regular rate and rhythm. No murmur heard. ? ABDOMEN: Soft, nontender, nondistended EXTREMITIES: Normal range of motion. No edema. ? SKIN: Warm, dry, no rash.? NEURO: Alert and oriented x3. No focal deficits. PSYCH: Normal m
[2022-05-13] MEDS: predniSONE 20 MG TABLET 60 MG PO (17:30)
[2022-05-13] MEDS: IPRATROPIUM BR 0.02% INH SOLN 0.5 MG/2.5 ML VIAL INHALATION (17:36)
[2022-05-13] MEDS: ALBUTEROL SULFATE NEB 2.5 MG/3 ML INH INHALATION (17:36)
== END 2022-05-13 18:50 | disposition home or self-care (01) ==
PROVIDERS: Emergency Provider Nurse Practitioner Family; PCP Family Medicine
DX: J18.9 Pneumonia, unspecified organism (principal); Z20.822 Contact with and (suspected) exposure to COVID-19
CPT/HCPCS: 71046; 87081; 87426; 87804; 87880; 99213; C9803; G0463; J7512

== ENCOUNTER 2022-07-03 08:22 | Emergency (ER) | payer BC, MEDICAID, SELFPAY ==
[2022-07-03 08:30] VITALS: BP 108/67; PULSE 98; RESP 20; TEMP 36.4; O2SAT 98
--- NOTE | 2022-07-03 08:49 | ED.URI ---
HPI - URI/Sore Throat General Chief Complaint: Upper Respiratory Infection Stated Complaint: Bodyaches/Sinus Time Seen by Provider: 07/03/22 08:53 Source: patient and RN notes reviewed Mode of arrival: ambulatory Limitations: no limitations History of Present Illness HPI Narrative: 51-year-old female presents with concern for 3 day history of cough, sinus congestion, sinus drainage, body aches, ear fullness, general malaise. She reports nausea without vomiting or diarrhea. She reports a history of frequent pneumonia. She reports her symptoms have worsened today. She reports she has been taking Coricidin HBP. She denies chest pain. She reports she has had some episodes of shortness of breath for which she has used her albuterol inhaler. She last used her albuterol inhaler this morning. MD elicited complaint: cough and nasal congestion Related Data Home Medications Medication Instructions Recorded Confirmed thyroid (pork) 60 mg tablet 60 mg PO DAILY 03/16/19 09/28/21 ([place] Thyroid) hydroxyzine HCl 50 mg tablet 50 mg PO QID 10/28/19 09/28/21 ibuprofen 800 mg tablet 800 mg PO DIRECTED 10/28/19 09/28/21 quetiapine 25 mg tablet 25 mg PO DAILY 10/28/19 10/28/19 quetiapine 50 mg tablet 50 mg PO DAILY 10/28/19 09/28/21 amitriptyline 50 mg tablet mg 01/13/22 linaclotide 290 mcg capsule mcg 01/13/22 (Linzess) metformin 500 mg tablet,extended mg PO 01/13/22 release 24 hr buspirone 5 mg tablet mg 05/13/22 deutetrabenazine 12 mg tablet mg PO 05/13/22 (Austedo) lithium carbonate 300 mg tablet mg 05/13/22 risperidone 4 mg tablet mg 05/13/22 temazepam 30 mg capsule mg 05/13/22 topiramate 25 mg tablet mg 05/13/22 Allergies Allergy/AdvReac Type Severity Reaction Status Date / Time hydrocodone Allergy Severe ANAPHYLAXIS Verified 07/03/22 08:26 codeine Allergy Unknown Other Verified 07/03/22 08:26 ibuprofen AdvReac Other Verified 07/03/22 08:26 Dairy Allergy Severe RASH/INTESTINE Uncoded 07/03/22 08:26 INFECTION Review of Systems Review of Systems: CONSTITUTIONAL: Reports malaise. Denies fever. EYES: Denies visual changes, redness, or discharge. ENT: Reports rhinorrhea, congestion, sinus pain. Denies otalgia and sore throat. CARDIOVASCULAR: Denies chest pain, palpitations, or edema. RESPIRATORY: Reports cough, episodic dyspnea that is relieved with albuterol. GASTROINTESTINAL: Denies abdominal pain, vomiting, diarrhea. Reports nausea SKIN: Denies rash or itching. MUSCULOSKELETAL: Reports myalgia. NEUROLOGIC: Denies headache. All systems reviewed & are unremarkable except as noted in HPI and below PMFSH Past Medical History Medical History Dysuria Insomnia Obesity Perimenopause Uterine fibroid Surgical History Surgical History History of gynecologic surgery 3 yrs ago 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 Personal hx of gastric bypass Social History Social History Smoking status: Never smoker Alcohol intake: never Substance use: never Substance use type: does not use Living arrangements: alone Gender identity (if verbalized by the patient): Female Comments At time of signature, agree with nursing past medical, surgical, social and family history. There is no relevant family history pertinent to the presenting complaint Exam Narrative: GENERAL: Nontoxic-appearing and in no acute distress. HEAD: Normocephalic EYES: PERRLA, conjunctivae clear ENT: Nares clear, turbinates edematous and erythematous, worse on the right. Mucous membranes moist. TM pearly khan with dull light reflex bilaterally; no tragal tenderness. Oropharynx not erythematous without lesions. Tonsils not enlarged and without exudate, no drooling, no hoarseness, no trismus, uvula midline. NECK: Supple. No lymphadenopathy CHEST: Clear to auscultation, breat
== END 2022-07-03 09:20 | disposition home or self-care (01) ==
PROVIDERS: Emergency Provider Nurse Practitioner; PCP Family Medicine
DX: J06.9 Acute upper respiratory infection, unspecified (principal); Z20.822 Contact with and (suspected) exposure to COVID-19; E66.9 Obesity, unspecified; Z98.84 Bariatric surgery status
CPT/HCPCS: 87081; 87426; 87804; 87880; 99213; C9803; G0463

== ENCOUNTER → 2022-09-03 11:23 | Outpatient (CLI) | payer BC, MEDICAID, SELFPAY ==
--- NOTE | ~2022-09-03 | MM_ITS ---
EXAMINATION: MM scrn luisa implant BI w [facility] HISTORY: Screening mammogram TECHNIQUE: Craniocaudal and mediolateral oblique 3-D tomosynthesis images with implant displacement a nd synthetic 2-D images were generated. Craniocaudal and mediolateral oblique views of the breasts wi thout implant displacement were obtained using full field digital mammography. CAD analysis was submi tted and interpreted. COMPARISON: No prior mammogram is available for comparison at this institution. BREAST PARENCHYMAL COMPOSITION: There are scattered areas of fibroglandular density. FINDINGS: Status post bilateral augmentation mammoplasty. There is no evidence of suspicious mass, ca lcification, or architectural distortion to suggest malignancy in either breast. There has been no mcbride spicious interval change. IMPRESSION: 1. No mammographic evidence of malignancy. 2. Recommend routine screening mammography in one year. BI-RADS Category 1: Negative Reviewed, dictated and finalized at location A.
== END ==
PROVIDERS: PCP Family Medicine; Visit Provider Nurse Practitioner Family
DX: Z12.31 Encounter for screening mammogram for malignant neoplasm of breast (principal)
CPT/HCPCS: 77063; 77067

== ENCOUNTER 2022-12-09 09:51 | Emergency (ER) | payer BC, MEDICAID, SELFPAY ==
[2022-12-09] VITALS (17 sets, daily range): BP systolic 108–152; BP diastolic 74–92; PULSE 78–91; RESP 12–25; TEMP 36.4; O2SAT 98–100
--- NOTE | ~2022-12-09 | CT_ITS ---
EXAMINATION: CTA BRAIN/CAROTID DATE: 12/09/2022 10:58 INDICATION: Dizziness TECHNIQUE: Computed tomographic angiography (CTA) of the head and neck was performed with 100 mL Omni paque-350 intravenous contrast. Multiplanar reconstructions and maximum intensity projection 3D-recon structions of the carotid arteries and of the intracranial arteries were created by the technologist on a separate workstation. Precontrast CT of the head was also obtained. Automated exposure control and iterative reconstruction technique were employed.The dose-length product was 1649.23 mGy-cm. COMPARISON: 11/04/2021 FINDINGS: Carotid arteries: Visualized aortic arch is normal in caliber with no stenosis or dissection. There is no evident ather osclerotic plaque with 0% stenosis of the right and left carotid bulbs relative to normal distal kirit ry lumen diameter (NASCET criteria). There are persistent groundglass opacities throughout both lungs consistent with pulmonary edema versus pneumonia. There is fluid layering dependently within the minesh ewhat patulous esophagus suggesting reflux. Bilateral breast implants. Cervical soft tissues are unre markable. Mild cervical spondylosis. Head: No acute intracranial hemorrhage, acute infarction or abnormal extra axial fluid collection. Ventricl es are normal and symmetric. No mass/mass effect. No abnormally enhancing brain lesions. Chronic blow out fracture of the medial wall of the right orbit. Callosal thickening in the bilateral maxillary an d ethmoid sinuses. Mastoid air cells and middle ear cavities are normal. Intracranial arteries There is no hemodynamically significant stenosis in the vertebral, basilar and internal carotid arter ies. Vertebral arteries are codominant. There are no aneurysms identified. Both A1 and P1 segments a re patent. There is also a patent anterior to indicating artery. Cerebral arterial arborization appea rs symmetric. IMPRESSION: 1. No evident atherosclerotic plaque with 0% stenosis of the right and left carotid bulbs relative to normal distal artery lumen diameter (NASCET criteria). 2. Normal brain and cerebral CT angiogram. No acute intracranial process, abnormally enhancing brain lesions, aneurysm or significant cerebral arterial stenosis. 3. Groundglass opacities in the bilateral visualized upper lung zones which could represent pulmonary edema or pneumonia. Reviewed, dictated and finalized at location A. IMPRESSION: 1. No evident atherosclerotic plaque with 0% stenosis of the right and left car otid bulbs relative to normal distal artery lumen diameter (NASCET criteria). 2. Normal brain and cerebral CT angiogram. No acute intracranial process, abnor hardeep enhancing brain lesions, aneurysm or significant cerebral arterial stenos is. 3. Groundglass opacities in the bilateral visualized upper lung zones which cou ld represent pulmonary edema or pneumonia.
--- NOTE | 2022-12-09 09:59 | ECG_ITS ---
Measurements Intervals [place] Rate: 84 P: 69 UT: 165 QRS: -22 QRSD: 99 T: 68 QT: 318 QTc: 377 Interpretive Statements SINUS RHYTHM DELAYED PRECORDIAL R/S TRANSITION BASELINE WANDER- AVL BORDERLINE ECG COMPARED TO ECG 11/11/2021 18:02:32 NO SIGNIFICANT CHANGES Electronically Signed On 12-09-2022 10:05:13 CDT by Bill Love D.O.
[2022-12-09 10:11] LABS: Basophils Absolute Auto 0.1 K/mm3 (0.0-0.1); Basophils Percent Auto 0.8 % (0.2-1.2); Eosinophils Absolute Auto 0.3 K/mm3 (0-0.3); Eosinophils Percent Auto 3.4 % (0-4.4); Hematocrit 38.8 % (37.0-47.0); Hemoglobin 12.5 g/dL (12.0-15.0); Immature Granulocyte Absolute 0.02 K/mm3 (0.00-0.031); Immature Granulocyte Percent A 0.3 % (0-0.5); Lymphocytes Absolute Auto 1.48 K/mm3 (0.9-3.2); Lymphocytes Percent Auto 20.3 % (18.3-44.2); Mean Corpuscular HGB Conc 32.2 g/dl (32-36); Mean Corpuscular Hemoglobin 29.7 pg (26-34); Mean Corpuscular Volume 92.2 fl (80-100); Mean Platelet Volume 10.9 fl (7.4-10.4); Monocytes Absolute Auto 0.6 K/mm3 (0.1-0.6); Monocytes Percent Auto 8.8 % (2.6-8.5); Neutrophils Absolute Auto 4.8 K/mm3 (1.3-6.7); Neutrophils Percent Auto 66.4 % (45.5-73.1); Platelet Count Result 263 k/mm3 (150-375); Red Blood Count 4.21 M/mm3 (4.2-5.4); Red Cell Distribution Width 16.1 % (11.5-14.5); White Blood Count 7.3 K/mm3 (4.5-10.0)
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
[2022-12-09 10:24] LABS: Alanine Aminotransferase 30 U/L (6-35); Albumin Level 4.2 g/dL (3.5-5.1); Alkaline Phosphatase 64 U/L (38-126); Anion Gap 10 mmol/L (8-16); Aspartate Amino Transferase 32 U/L (14-36); Bilirubin,Total 0.7 mg/dL (0.2-1.3); Blood Urea Nitrogen 10 mg/dL (7-17); Carbon Dioxide 20 mmol/L (22-30); Chloride 112 mmol/L (98-107); Estimated CRCL calculation 51 ml/min; Estimated Glomerular Filt Rate 48; Glucose 100 mg/dL (65-110); Sodium 142 mmol/L (137-145)
[2022-12-09 10:47] LABS: Glucose Point of Care 80 mg/dl (65-105)
[2022-12-09 10:54] LABS: Appearance Urine Cloudy (Clear); Bacteria Urine 3+ /hpf; Bilirubin Urine Negative (Negative); Blood Urine Negative (Negative); Color Urine Yellow (Yellow); Glucose Urine UA Negative (Negative); Ketones Urine Negative (Negative); Leukocyte Esterase Ur Trace LEU/UL (Negative); Need Manual Microscopic Reviewed; Nitrate Urine Negative (Negative); Non Pathogenic Casts 0-2; Protein Urine Negative (Negative); RBC Urine 0-2 /hpf (0-2); Specific Grav Ur 1.009 (1.001-1.035); Squamous Epithelial Cell Urine Few /hpf (Few); pH Urine 7.5 (5.0-9.0)
[2022-12-09 11:11] LABS: Add Urine Microscopic? YES
[2022-12-09] MEDS: ONDANSETRON INJ 4 MG/2 ML VIAL IV PUSH ×2 (11:17→13:19)
[2022-12-09] MEDS: MECLIZINE HCL 25 MG TABLET PO (11:18)
[2022-12-09] MEDS: SODIUM CHLORIDE 0.9% IV 1,000 ML 999 ML IV CONT (11:18)
[2022-12-09 11:23] LABS: Troponin I < 0.012 ng/mL (0.000-0.034)
[2022-12-09 11:24] LABS: Influenza A QL RT-PCR Negative (Negative); Influenza B QL RT-PCR Negative (Negative); RSV RNA, RT-PCR Negative (Negative); SARS-CoV-2 RNA PCR Negative (Negative)
[2022-12-09] MEDS: ACETAMINOPHEN 500 MG TABLET 1000 MG PO (13:19)
== END 2022-12-09 14:06 | disposition home or self-care (01) ==
PROVIDERS: Emergency Medicine; Emergency Provider Nurse Practitioner Family; PCP Family Medicine
DX: N39.0 Urinary tract infection, site not specified (principal); H66.92 Otitis media, unspecified, left ear; Z20.822 Contact with and (suspected) exposure to COVID-19; E66.9 Obesity, unspecified; Z68.33 Body mass index [BMI] 33.0-33.9, adult; Z98.84 Bariatric surgery status; Z87.820 Personal history of traumatic brain injury
CPT/HCPCS: 36415; 70496; 70498; 80053; 81001; 81025; 82948; 84484; 85025; 87086; 87088; 87637; 93005; 96361; 96365; 96375; 96376; 99284; A9270; J0696; J2405; J7030; Q9967

== ENCOUNTER 2023-01-12 08:58 | Emergency (ER) | payer BC, MEDICAID, SELFPAY ==
--- NOTE | ~2023-01-12 | XR_ITS ---
EXAMINATION: XR chest 2V DATE: 01/12/2023 10:29 INDICATION: 2 days of productive cough TECHNIQUE: PA and lateral views of the chest were obtained. COMPARISON: Chest radiograph dated 05/13/2022 FINDINGS: Again seen are bilateral perihilar interstitial and mild airspace opacities which appear more promine nt than on the prior study. No pleural effusion or pneumothorax. The cardiomediastinal silhouette is normal. Mild thoracic spondylosis. Multiple surgical clips in the abdomen. Indeterminate round foreig n body projects over the paraspinal tissues to the right and posterior to the lower lumbar spine. IMPRESSION: 1. Increasing bilateral perihilar interstitial and airspace opacities which could represent pneumonia or pulmonary edema in the acute setting or more chronic interstitial lung disease. Reviewed, dictated and finalized at location A. IMPRESSION: 1. Increasing bilateral perihilar interstitial and airspace opacities which cou ld represent pneumonia or pulmonary edema in the acute setting or more chronic interstitial lung disease.
[2023-01-12 09:08] VITALS: BP 131/65; PULSE 97; RESP 16; TEMP 37.6; O2SAT 99
--- NOTE | 2023-01-12 09:26 | ED.URI ---
HPI - URI/Sore Throat General Chief Complaint: Upper Respiratory Infection Stated Complaint: Cough Time Seen by Provider: 01/12/23 10:04 Source: patient and RN notes reviewed Mode of arrival: ambulatory Limitations: no limitations History of Present Illness HPI Narrative: 52-year-old female presents with concern for 2 day history of cough, chest congestion, productive cough, body aches. She reports 2 members of her office have been sick. She reports she was treated for an ear infection 1 month ago with Augmentin. She reports she has had several episodes of pneumonia over the last year. MD elicited complaint: cough Related Data Home Medications Medication Instructions Recorded Confirmed thyroid (pork) 60 mg tablet 60 mg PO DAILY 03/16/19 01/12/23 ([place] Thyroid) hydroxyzine HCl 50 mg tablet 50 mg PO QID 10/28/19 01/12/23 amitriptyline 50 mg tablet 50 mg PO DAILY 01/13/22 01/12/23 linaclotide 290 mcg capsule 290 mcg PO DAILY 01/13/22 01/12/23 (Linzess) buspirone 5 mg tablet 5 mg PO DAILY 05/13/22 01/12/23 deutetrabenazine 12 mg tablet 12 mg PO DAILY 05/13/22 01/12/23 (Austedo) lithium carbonate 300 mg tablet 300 mg PO DAILY 05/13/22 01/12/23 risperidone 4 mg tablet 4 mg PO DAILY 05/13/22 01/12/23 temazepam 30 mg capsule 30 mg PO DAILY 05/13/22 01/12/23 topiramate 25 mg tablet 25 mg PO DAILY 05/13/22 01/12/23 levothyroxine 75 mcg capsule 75 mcg PO DAILY 10/04/22 01/12/23 omeprazole 40 mg capsule,delayed 40 mg PO DAILY 01/12/23 01/12/23 release quetiapine 100 mg tablet 100 mg PO DAILY 01/12/23 01/12/23 quetiapine 400 mg tablet 400 mg PO DAILY 01/12/23 01/12/23 topiramate 50 mg tablet 50 mg PO DAILY 01/12/23 01/12/23 Allergies Allergy/AdvReac Type Severity Reaction Status Date / Time ascorbic acid Allergy Severe Anaphylaxis Verified 01/12/23 09:35 [From Sambucus Elderberry Immune] Echinacea angustifolia root, Allergy Severe Anaphylaxis Verified 01/12/23 09:35 rhizome extract [From [employer] Immune] Echinacea purpurea extract Allergy Severe Anaphylaxis Verified 01/12/23 09:35 [From [employer] Elderberry Immune] elderberry fruit Allergy Severe Anaphylaxis Verified 01/12/23 09:35 [From [employer] Elderberry Immune] hydrocodone Allergy Severe ANAPHYLAXIS Verified 01/12/23 09:35 propolis (bee glue) Allergy Severe Anaphylaxis Verified 01/12/23 09:35 [From [employer] Elderberry Immune] zinc Allergy Severe Anaphylaxis Verified 01/12/23 09:35 [From [employer] Elderberry Immune] codeine Allergy Unknown Other Verified 01/12/23 09:35 ibuprofen AdvReac Unknown Other Verified 01/12/23 09:35 Dairy Allergy Severe RASH/INTESTINE Uncoded 01/12/23 09:35 INFECTION Review of Systems Review of Systems: CONSTITUTIONAL: Reports malaise EYES: Denies visual changes, redness, or discharge. ENT: Reports rhinorrhea, congestion. Denies sinus pain, otalgia and sore throat. CARDIOVASCULAR: Denies chest pain, palpitations, or edema. RESPIRATORY: Reports cough, chest congestion. Denies dyspnea. GASTROINTESTINAL: Denies abdominal pain, nausea, vomiting, diarrhea SKIN: Denies rash or itching. MUSCULOSKELETAL: Reports myalgia. NEUROLOGIC: Denies headache. All systems reviewed & are unremarkable except as noted in HPI and below PMFSH Past Medical History Medical History Dysuria Insomnia Obesity Perimenopause Uterine fibroid Surgical History Surgical History History of gynecologic surgery 3 yrs ago 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 Personal hx of gastric bypass Social History Social History (Updated 10/04/22 @ 15:22 by Caitlin Bowen MA) Smoking status: Never smoker Alcohol intake: never Substance use: never Substance use type: does not use Lack of Transportation: No Lack of Food: Never True Current Housing: I Have Housing Concerned Ab
== END 2023-01-12 11:04 | disposition home or self-care (01) ==
PROVIDERS: Emergency Provider Nurse Practitioner; PCP Family Medicine
DX: J06.9 Acute upper respiratory infection, unspecified (principal); R91.8 Other nonspecific abnormal finding of lung field; Z20.822 Contact with and (suspected) exposure to COVID-19; E66.9 Obesity, unspecified; Z68.33 Body mass index [BMI] 33.0-33.9, adult; Z98.84 Bariatric surgery status
CPT/HCPCS: 71046; 87426; 87804; 99213; C9803; G0463

== ENCOUNTER 2023-03-30 17:56 | Emergency (ER) | payer BC, MEDICAID, SELFPAY ==
[2023-03-30 18:02] VITALS: BP 168/96; PULSE 79; RESP 20; TEMP 36.8; O2SAT 100
--- NOTE | 2023-03-30 18:02 | ED.DIZZY ---
HPI - Dizziness General Chief Complaint: Dizziness Stated Complaint: Dizziness Time Seen by Provider: 03/30/23 18:10 Source: patient Mode of arrival: ambulatory Limitations: no limitations History of Present Illness HPI Narrative: Erika is a 52-year-old female patient presenting to the clinic today with complaints of dizziness that started yesterday then resolved then started having dizziness again approximately 2 hours prior to arrival.. She is also reporting some associated nausea and vomiting. Has vomited once. States that the room is spinning. Does take lithium. Reports that she has not had of lithium level checked in a while. Denies any headache or visual changes. Related Data Home Medications Medication Instructions Recorded Confirmed thyroid (pork) 60 mg tablet 60 mg PO DAILY 03/16/19 03/30/23 ([place] Thyroid) hydroxyzine HCl 50 mg tablet 50 mg PO QID 10/28/19 03/30/23 amitriptyline 50 mg tablet 50 mg PO DAILY 01/13/22 03/30/23 linaclotide 290 mcg capsule 290 mcg PO DAILY 01/13/22 03/30/23 (Linzess) buspirone 5 mg tablet 5 mg PO DAILY 05/13/22 03/30/23 deutetrabenazine 12 mg tablet 12 mg PO DAILY 05/13/22 03/30/23 (Austedo) lithium carbonate 300 mg tablet 300 mg PO DAILY 05/13/22 03/30/23 risperidone 4 mg tablet 4 mg PO DAILY 05/13/22 03/30/23 temazepam 30 mg capsule 30 mg PO DAILY 05/13/22 03/30/23 topiramate 25 mg tablet 25 mg PO DAILY 05/13/22 03/30/23 levothyroxine 75 mcg capsule 75 mcg PO DAILY 10/04/22 03/30/23 omeprazole 40 mg capsule,delayed 40 mg PO DAILY 01/12/23 03/30/23 release quetiapine 100 mg tablet 100 mg PO DAILY 01/12/23 03/30/23 quetiapine 400 mg tablet 400 mg PO DAILY 01/12/23 03/30/23 topiramate 50 mg tablet 50 mg PO DAILY 01/12/23 03/30/23 Allergies Allergy/AdvReac Type Severity Reaction Status Date / Time ascorbic acid Allergy Severe Anaphylaxis Verified 03/30/23 18:10 [From Sambucus Elderberry Immune] Echinacea angustifolia root, Allergy Severe Anaphylaxis Verified 03/30/23 18:10 rhizome extract [From S[employer]ucus Elderberry Immune] Echinacea purpurea extract Allergy Severe Anaphylaxis Verified 03/30/23 18:10 [From S[place]ucus Elderberry Immune] elderberry fruit Allergy Severe Anaphylaxis Verified 03/30/23 18:10 [From [employer] Elderberry Immune] hydrocodone Allergy Severe ANAPHYLAXIS Verified 03/30/23 18:10 propolis (bee glue) Allergy Severe Anaphylaxis Verified 03/30/23 18:10 [From S[employer]ucus Elderberry Immune] zinc Allergy Severe Anaphylaxis Verified 03/30/23 18:10 [From S[employer]ucus Elderberry Immune] codeine Allergy Unknown Other Verified 03/30/23 18:10 ibuprofen AdvReac Unknown Other Verified 03/30/23 18:10 Dairy Allergy Severe RASH/INTESTINE Uncoded 01/12/23 09:35 INFECTION Review of Systems Review of Systems: Pertinent positives per HPI. Patient denies any fever, chills, rash, headache, visual changes, cough, shortness of breath, chest pain, palpitations, nausea, vomiting, diarrhea, constipation, abdominal pain, or any urinary issues. [facility] Past Medical History Medical History Dysuria Insomnia Obesity Perimenopause Uterine fibroid Surgical History Surgical History History of gynecologic surgery 3 yrs ago 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 Personal hx of gastric bypass Social History Social History (Updated 10/04/22 @ 15:22 by Caitlin Bowen MA) Smoking status: Never smoker Alcohol intake: never Substance use: never Substance use type: does not use Lack of Transportation: No Lack of Food: Never True Current Housing: I Have Housing Concerned About Future Housing: No Difficulty Paying Gas/Electric Bills: No Difficulty Paying for Meds: No Currently Unemployed: No Education: Master's Degree or Higher Difficulty w/ Childcare or Family Care: No Living arrangements: a
--- NOTE | 2023-03-30 18:17 | ECG_ITS ---
Measurements Intervals [place] Rate: 80 P: 80 AK: 155 QRS: 6 QRSD: 100 T: 71 QT: 391 QTc: 453 Interpretive Statements SINUS RHYTHM DELAYED PRECORDIAL R/S TRANSITION BORDERLINE T WAVE ABNORMALITY- ANT/HIGH LAT LEADS BASELINE ARTIFACT- V5 BORDERLINE ECG COMPARED TO ECG 12/09/2022 09:57:26 NO SIGNIFICANT CHANGES Electronically Signed On 03-30-2023 19:11:59 [employer] by Bill Love D.O.
[2023-03-30 18:24] LABS: Glucose Point of Care 87 mg/dl (65-105)
[2023-03-30 18:40] VITALS: BP 161/90; PULSE 80
[2023-03-30 18:42] VITALS: BP 171/86; PULSE 78
[2023-03-30 18:44] VITALS: BP 161/90; PULSE 79
== END 2023-03-30 19:06 | disposition left against medical advice (07) ==
PROVIDERS: Emergency Provider Nurse Practitioner Family; PCP Family Medicine
DX: R42 Dizziness and giddiness (principal); E66.9 Obesity, unspecified; Z68.31 Body mass index [BMI] 31.0-31.9, adult; Z98.84 Bariatric surgery status
CPT/HCPCS: 81003; 82948; 87086; 87088; 93005; 99213; G0463

== ENCOUNTER 2023-12-24 05:15 | Emergency (ER) | payer BC, SELFPAY ==
[2023-12-24 05:17] VITALS: BP 148/85; PULSE 94; RESP 16; TEMP 36.5; O2SAT 98
[2023-12-24 06:25] LABS: BEDSIDEPREGUCG Negative (Negative)
[2023-12-24 06:26] LABS: Basophils Percent Auto 0.6 % (0.2-1.2); Eosinophils Absolute Auto 0.6 K/mm3 (0-0.3); Eosinophils Percent Auto 8.1 % (0-4.4); Hematocrit 38.9 % (37.0-47.0); Hemoglobin 12.5 g/dL (12.0-15.0); Immature Granulocyte Absolute 0.01 K/mm3 (0.00-0.031); Immature Granulocyte Percent A 0.1 % (0-0.5); Lymphocytes Absolute Auto 2.05 K/mm3 (0.9-3.2); Lymphocytes Percent Auto 30.1 % (18.3-44.2); Mean Corpuscular HGB Conc 32.1 g/dl (32-36); Mean Corpuscular Hemoglobin 29.6 pg (26-34); Mean Platelet Volume 10.5 fl (7.4-10.4); Monocytes Absolute Auto 0.8 K/mm3 (0.1-0.6); Neutrophils Absolute Auto 3.4 K/mm3 (1.3-6.7); Neutrophils Percent Auto 50.1 % (45.5-73.1); Platelet Count Result 260 k/mm3 (150-375); Red Blood Count 4.23 M/mm3 (4.2-5.4); Red Cell Distribution Width 14.9 % (11.5-14.5); White Blood Count 6.8 K/mm3 (4.5-10.0)
[2023-12-24 06:27] LABS: Add Urine Microscopic? NO; Appearance Urine Clear (Clear); Bilirubin Urine Negative (Negative); Blood Urine Negative (Negative); Color Urine Yellow (Yellow); Glucose Urine UA Negative (Negative); Ketones Urine Negative (Negative); Leukocyte Esterase Ur Negative LEU/UL (Negative); Nitrate Urine Negative (Negative); Protein Urine Negative (Negative); Specific Grav Ur 1.007 (1.001-1.035); pH Urine 6.5 (5.0-9.0)
[2023-12-24 06:36] LABS: Alanine Aminotransferase 24 U/L (6-35); Albumin Level 4.2 g/dL (3.5-5.1); Alkaline Phosphatase 102 U/L (38-126); Anion Gap 11 mmol/L (4-12); Aspartate Amino Transferase 27 U/L (14-36); Bilirubin,Total 0.4 mg/dL (0.2-1.3); Blood Urea Nitrogen 16 mg/dL (7-17); Calcium 9.2 mg/dL (8.4-10.2); Carbon Dioxide 20 mmol/L (22-30); Chloride 106 mmol/L (98-107); Estimated CRCL calculation 57 ml/min; Estimated Glomerular Filt Rate 47; Glucose 90 mg/dL (65-110); Lipase 115 U/L (23-300); Potassium 3.9 mmol/L (3.4-5.0); Sodium 137 mmol/L (137-145)
--- NOTE | 2023-12-24 07:31 | ED.GENADULT ---
HPI - General Adult General Chief complaint: Nausea/Vomiting/Diarrhea Stated complaint: burning in stomach to esophagus Time Seen by Provider: 12/24/23 06:58 History of Present Illness HPI narrative: 53 year Old female presenting to the emergency department for evaluation epigastric pain this started 430. Patient took some Pepto this morning states the burning has resolved. Patient describes the pain a as burning. Upon arrival emergency department patient states the pain has resolved. Patient denies any associated chest pain or shortness of breath. Patient denies any prior history of coronary artery disease. Related Data Home Medications Medication Instructions Recorded Confirmed hydroxyzine HCl 50 mg tablet 50 mg PO QID 10/28/19 12/11/23 amitriptyline 50 mg tablet 50 mg PO DAILY 01/13/22 12/11/23 linaclotide 290 mcg capsule 290 mcg PO DAILY 01/13/22 12/11/23 (Linzess) buspirone 5 mg tablet 5 mg PO DAILY 05/13/22 12/11/23 deutetrabenazine 12 mg tablet 12 mg PO DAILY 05/13/22 12/11/23 (Austedo) lithium carbonate 300 mg tablet 300 mg PO DAILY 05/13/22 12/11/23 risperidone 4 mg tablet 4 mg PO DAILY 05/13/22 12/11/23 temazepam 30 mg capsule 30 mg PO DAILY 05/13/22 12/11/23 omeprazole 40 mg capsule,delayed 40 mg PO DAILY 01/12/23 12/11/23 release quetiapine 100 mg tablet 100 mg PO DAILY 01/12/23 12/11/23 quetiapine 400 mg tablet 400 mg PO DAILY 01/12/23 12/11/23 biotin 10,000 mcg capsule 70,000 mcg PO 10/19/23 12/11/23 Allergies Allergy/AdvReac Type Severity Reaction Status Date / Time ascorbic acid Allergy Severe Anaphylaxis Verified 12/11/23 14:58 [From S[employer]ucus Elderberry Immune] Echinacea angustifolia root, Allergy Severe Anaphylaxis Verified 12/11/23 14:58 rhizome extract [From [employer] Elderberry Immune] Echinacea purpurea extract Allergy Severe Anaphylaxis Verified 12/11/23 14:58 [From [place]us Elderberry Immune] elderberry fruit Allergy Severe Anaphylaxis Verified 12/11/23 14:58 [From [place] Elderberry Immune] hydrocodone Allergy Severe ANAPHYLAXIS Verified 12/11/23 14:58 propolis (bee glue) Allergy Severe Anaphylaxis Verified 12/11/23 14:58 [From S[place]ucus Elderberry Immune] zinc Allergy Severe Anaphylaxis Verified 12/11/23 14:58 [From S[place]ucus Elderberry Immune] codeine Allergy Unknown Other Verified 12/11/23 14:58 ibuprofen AdvReac Unknown Other Verified 12/11/23 14:58 Dairy Allergy Severe RASH/INTESTINE Uncoded 12/11/23 14:58 INFECTION Review of Systems Review of Systems: All systems reviewed & are unremarkable except as noted in HPI and below PMFSH Past Medical History Medical History Dysuria Insomnia Obesity Perimenopause Uterine fibroid Surgical History Surgical History History of gynecologic surgery 3 yrs ago 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 Personal hx of gastric bypass Social History Social History Smoking status: Never smoker Alcohol intake: never Substance use: never Substance use type: does not use Lack of Transportation: No Lack of Food: Never True Current Housing: I Have Housing Concerned About Future Housing: No Difficulty Paying Gas/Electric Bills: No Difficulty Paying for Meds: No Currently Unemployed: No Education: Master's Degree or Higher Difficulty w/ Childcare or Family Care: No Living arrangements: alone Occupation/Education: occupation Gender identity (if verbalized by the patient): Female Exam Narrative: APPEARANCE: Well appearing, no pain, no distress, well-nourished. HEAD: normocephalic, atraumatic. EYES: PERRLA/EOMI, conjunctivae clear. NOSE: Normal no drainage EARS:TMS clear with good light reflex. THROAT: Pharynx clear, no exudate. NECK: Supple. No adenopathy, no masses. RESPIRATO
[2023-12-24 07:58] VITALS: BP 122/82; PULSE 65; RESP 18; O2SAT 97
== END 2023-12-24 07:59 | disposition home or self-care (01) ==
PROVIDERS: Emergency Medicine; Emergency Provider Emergency Medicine; PCP Family Medicine
DX: R10.13 Epigastric pain (principal); E66.9 Obesity, unspecified; Z68.31 Body mass index [BMI] 31.0-31.9, adult; Z98.84 Bariatric surgery status; Z79.899 Other long term (current) drug therapy
CPT/HCPCS: 36415; 80053; 81003; 81025; 83690; 85025; 99283

== ENCOUNTER 2024-02-03 13:13 | Emergency (ER) | payer BC, SELFPAY ==
--- NOTE | ~2024-02-03 | XR_ITS ---
EXAMINATION: XR chest 2V Exam Date/Time: 02/03/2024 14:45 [facility] HISTORY: prod cough x 5 days non smoker Comparison: 01/12/2023. RESULT: Lines, tubes, and devices: Surgical clips over the left upper quadrant. Lungs and pleura: Scattered interstitial and airspace opacities in the bilateral mid and lower lungs . Cardiomediastinal silhouette: Stable. Other: No acute osseous or upper abdominal finding. IMPRESSION: Patchy bilateral mid and lower lung airspace and interstitial opacities may represent edema or infect ion, versus chronic lung disease. Reviewed, dictated and finalized at location [facility] IMPRESSION: Patchy bilateral mid and lower lung airspace and interstitial opacities may rep resent edema or infection, versus chronic lung disease.
[2024-02-03 13:31] VITALS: BP 135/81; PULSE 81; RESP 16; TEMP 37.1; O2SAT 100
--- NOTE | 2024-02-03 13:43 | ED.URI ---
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 She reports lack of energy, subjective fevers. She reports she has had some wheezing, but denies any shortness of breath. She has been taking multiple [id number] medications with poor relief. She denies any recent injury or trauma. She is in no distress this Related Data Home Medications Medication Instructions Recorded Confirmed hydroxyzine HCl 50 mg tablet 50 mg PO QID 10/28/19 02/03/24 amitriptyline 50 mg tablet 50 mg PO DAILY 01/13/22 02/03/24 linaclotide 290 mcg capsule 290 mcg PO DAILY 01/13/22 02/03/24 (Linzess) buspirone 5 mg tablet 5 mg PO DAILY 05/13/22 02/03/24 deutetrabenazine 12 mg tablet 12 mg PO DAILY 05/13/22 02/03/24 (Austedo) lithium carbonate 300 mg tablet 300 mg PO DAILY 05/13/22 02/03/24 risperidone 4 mg tablet 4 mg PO DAILY 05/13/22 02/03/24 temazepam 30 mg capsule 30 mg PO DAILY 05/13/22 02/03/24 omeprazole 40 mg capsule,delayed 40 mg PO DAILY 01/12/23 02/03/24 release quetiapine 100 mg tablet 100 mg PO DAILY 01/12/23 02/03/24 quetiapine 400 mg tablet 400 mg PO DAILY 01/12/23 02/03/24 biotin 10,000 mcg capsule 70,000 mcg PO DAILY 10/19/23 02/03/24 Allergies Allergy/AdvReac Type Severity Reaction Status Date / Time ascorbic acid Allergy Severe Anaphylaxis Verified 02/03/24 13:15 [From Sambucus Elderberry Immune] Echinacea angustifolia root, Allergy Severe Anaphylaxis Verified 02/03/24 13:15 rhizome extract [From S[place]ucus Elderberry Immune] Echinacea purpurea extract Allergy Severe Anaphylaxis Verified 02/03/24 13:15 [From S[place]ucus Elderberry Immune] elderberry fruit Allergy Severe Anaphylaxis Verified 02/03/24 13:15 [From [place]us Elderberry Immune] hydrocodone Allergy Severe ANAPHYLAXIS Verified 02/03/24 13:15 propolis (bee glue) Allergy Severe Anaphylaxis Verified 02/03/24 13:15 [From Sambucus Elderberry Immune] zinc Allergy Severe Anaphylaxis Verified 02/03/24 13:15 [From S[place]ucus Elderberry Immune] codeine Allergy Unknown Other Verified 02/03/24 13:15 ibuprofen AdvReac Unknown Other Verified 02/03/24 13:15 Dairy Allergy Severe RASH/INTESTINE Uncoded 12/11/23 14:58 INFECTION Review of Systems Review of Systems: All systems reviewed & are unremarkable except as noted in HPI and below Constitutional: Constitutional: Reports no additional constitutional complaints ENT: Reports system reviewed and no additional complaints, except as documented Cardiovascular: Cardiovascular: Reports no additional cardiovascular complaints Respiratory: Respiratory: Reports as per HPI, Reports no additional respiratory complaints, Reports change in phlegm color, Reports chest congestion, Reports cough and Reports pain with cough Gastrointestinal: Gastrointestinal: Reports no additional gastrointestinal complaints PMFSH Past Medical History Medical History Dysuria Insomnia Obesity Perimenopause Uterine fibroid Surgical History Surgical History History of gynecologic surgery 3 yrs ago 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 Personal hx of gastric bypass Social History Social History Smoking status: Never smoker Alcohol intake: never Substance use: never Substance use type: does not use Lack of Transportation: No Lack of Food: Never True Current Housing: I Have Housing Concerned About Future Housing: No Difficulty Paying Gas/Electric Bills: No Difficulty Paying for Meds: No Currently Unemployed: No Education: Master's Degree or Higher Difficulty w/ Childcare or Family Care: No Living arrangements: alone Occupation/Education: occupation Gender identity (if verbalized by the patient): Female Comments At the time of my signature, I reviewed and agree with the nursing past medical, surgical, social, and family history. There is no relevant family history pertinent to the patient complaint. Exam Const: General: cooperative, no acute distress, alert and awake Orientation/consciousness: oriented to person, oriented to place and oriented to time HENMT: Head: normal to inspection Mouth: Yes moist mucous membranes Resp: Effort & Inspection: normal respiratory effort and able to speak in complete sentences Auscultation: clear to auscultation bilaterally, crackles bilateral at the base, no rales, no rhonchi, no wheezes and diminished lung sounds Cardio: Palpation: normal PMI Rate: regular rate Rhythm: regular rhythm Heart sounds: S1 normal heart sound present and S2 normal heart sound present Neuro: General: oriented to person, oriented to place and oriented to time Cranial nerves: Yes CN's II-XII intact bilaterally Psych: Appearance: grossly normal Thought process: Normal thought process present Insight: Good insight present (Psych) Judgement: Good judgement present (Psych) Course Course Level of Care: Express Care Visit Vital Signs Vital signs: Vital Signs Temperature 98.8 F 02/03/24 13:31 Pulse Rate 81 02/03/24 13:31 Respiratory Rate 16 02/03/24 13:31 Blood Pressure 135/81 02/03/24 13:31 Pulse Oximetry 100 02/03/24 13:31 Oxygen Delivery Room Air 02/03/24 13:31 Temperature 98.8 F 02/03/24 13:31 Pulse Rate 81 02/03/24 13:31 Respiratory Rate 16 02/03/24 13:31 Blood Pressure 135/81 02/03/24 13:31 Pulse Oximetry 100 02/03/24 13:31 Oxygen Delivery Room Air 02/03/24 13:31 Reviewed MDM - URI/Sore Throat MDM Narrative Medical decision making narrative: History, exam, x-ray consistent with pneumonia. Patient nontoxic appearing. Stable for discharge home on p.o. antibiotics. Importance of follow-up discussed with patient. Discharge instructions reviewed with patient, as well as provided in writing per nursing staff. The instructions also include specific and strict return/GO TO THE ER as well as f/u information. All questions have been answered, and the patient deny any further questions with discharge and discharge plan. Some parts of this dictation were generated by voice recognition software and may contain typographical and/or grammatical inaccuracies. Differential Diagnosis Differential diagnosis: Likely upper respiratory infection, sinusitis, viral infection, bronchitis and influenza Medical Records Attestation: I reviewed the patient's medical records. Imaging Data My impression: Pneumonia Radiologist's impression: [place] [address] XRay Report Signed Patient: Erika Kim : 1970 MR#: [id number] Age: 53 Acct:[id number] Loc: [facility] ADM Date: 02/03/24Attending Dr: Ordering Physician: Trice Beverly FNP Date of Service: 02/03/24 Procedure(s): XR chest 2V Accession Number(s): [id number] cc: Trice Beverly FNP; Sutherland, Gerber Perea APRN~ EXAMINATION: XR chest 2V Exam Date/Time: 02/03/2024 14:45 FACILITY MANAGER HISTORY: prod cough x 5 days non smoker Comparison: 01/12/2023. RESULT: Lines, tubes, and devices: Surgical clips over the left upper quadrant. Lungs and pleura: Scattered interstitial and airspace opacities in the bilateral mid and lower lungs. Cardiomediastinal silhouette: Stable. Other: No acute osseous or upper abdominal finding. IMPRESSION: Patchy bilateral mid and lower lung airspace and interstitial opacities may represent edema or infection, versus chronic lung disease. Reviewed, dictated and finalized at location [facility] MANAGER Dictated By: Anuel Pruitt MD 02/03/24 1521 Signed By: <Electronically signed by Anuel Pruitt MD in OV> 02/03/24 1524 Discharge Plan Discharge Clinical Impression: Pneumonia Qualifiers: Pneumonia type: due to unspecified organism Laterality: bilateral Lung location: unspecified part of lung Qualified Code(s): J18.9 - Pneumonia, unspecified organism Patient Disposition: Home, Self-Care Condition: Stable Instructions: Antibiotic Form, Community Acquired Pneumonia (ED) Additional Instructions: Take medications as prescribed. Follow-up with primary care provider. Emergency department for new or worse symptoms Patient Language: Upper Sorbian Prescriptions: New azithromycin 250 mg tablet See Rx Instructions .ROUTE .COMPLEX Qty: 6 0RF Rx Instructions: For 250 mg dose pack: take 500 mg today (day 1), then 250 mg for 4 days (days 2-5) albuterol sulfate [Ventolin HFA] 90 mcg/actuation HFA aerosol inhaler 2 puff inhalation QID PRN (Reason: shortness of breath or wheezing) Qty: 8.5 0RF No Action amitriptyline 50 mg tablet 50 mg PO DAILY Linzess 290 mcg capsule 290 mcg PO DAILY meclizine 25 mg tablet 25 mg PO TID 3 Days Qty: 10 0RF hydroxyzine HCl 50 mg tablet 50 mg PO QID buspirone 5 mg tablet 5 mg PO DAILY risperidone 4 mg tablet 4 mg PO DAILY temazepam 30 mg capsule 30 mg PO DAILY lithium carbonate 300 mg tablet 300 mg PO DAILY [place] 12 mg tablet 12 mg PO DAILY omeprazole 40 mg capsule,delayed release(DR/EC) 40 mg PO DAILY quetiapine 100 mg tablet 100 mg PO DAILY quetiapine 400 mg tablet 400 mg PO DAILY biotin 10,000 mcg capsule 70,000 mcg PO DAILY progesterone micronized 200 mg capsule 200 mg PO QHS Qty: 90 3RF estradiol 0.5 mg tablet 0.5 mg PO DAILY Qty: 90 3RF omeprazole 20 mg capsule,delayed release(DR/EC) 20 mg PO DAILY 14 Days Qty: 14 0RF Follow-up/Referrals: Koko,Gerber Perea APRN [Primary Care Provider] - 1 Week Time of Disposition: 15:32
== END 2024-02-03 15:38 | disposition home or self-care (01) ==
PROVIDERS: Emergency Provider Nurse Practitioner Family; PCP Nurse Practitioner Family
DX: J18.9 Pneumonia, unspecified organism (principal); E66.9 Obesity, unspecified; Z68.31 Body mass index [BMI] 31.0-31.9, adult; Z98.84 Bariatric surgery status
CPT/HCPCS: 71046; 99213; G0463

== ENCOUNTER 2024-02-27 09:06 | Emergency (ER) | payer BC, SELFPAY ==
--- NOTE | ~2024-02-27 | CT_ITS ---
CT diagnostic chest w con Ordering provider: Adriel Carrillo MD History: 53 years Female with . persistent PNA, chest and back pain now . Comparison: None. Technique: CT chest with IV contrast. Findings: Bilateral breast implants. VISUALIZED THORACIC INLET: Normal. MEDIASTINUM: Aorta/coronary arteries: Mild atheromatous disease. Heart/other: The heart is not enlarged. Lymph nodes: No mediastinal or hilar adenopathy. LUNGS: Bilateral groundglass appearance in the lower lobes which may indicate atelectasis versus pneu monia versus edema.. No pulmonary nodules or masses. No effusions. No pneumothorax. VISUALIZED UPPER ABDOMEN: Sliding hiatus hernia. Slightly dilated esophagus. Postoperative changes in the stomach. Otherwise, the visualized upper abdomen is normal. MUSCULOSKELETAL: Soft tissues: The superficial soft tissues are normal. Bones: Age appropriate degenerative changes of the spine. IMPRESSION: Bilateral lower lobe groundglass appearance is seen suggestive of atelectasis versus pneumonia versus edema. Follow-up advised. Sliding hiatus hernia with dilated esophagus suggestive of reflux esophagitis. Postoperative changes in the stomach. Reviewed, dictated and finalized at location A. [facility] [employer]MENT CHAIR IMPRESSION: Bilateral lower lobe groundglass appearance is seen suggestive of atelectasis v ersus pneumonia versus edema. Follow-up advised. Sliding hiatus hernia with dilated esophagus suggestive of reflux esophagitis. Postoperative changes in the stomach.
--- NOTE | ~2024-02-27 | XR_ITS ---
XR chest 2V Ordering provider: Brenda Watts MD History: 53 years Female with . cough, recent PNA X 1month ago, chest pain . Comparison: None. FINDINGS: MEDIASTINUM: The cardiac silhouette is not enlarged. LUNGS: No effusions or pneumothorax. Prominent bronchovascular markings is seen in the lower lobes wi th infiltrate suggestive of early pneumonia. OTHER: No free air under the diaphragm. IMPRESSION: Bilateral lower lobe pneumonia. Follow-up advised. Reviewed, dictated and finalized at location A. [employer]
[2024-02-27 09:14] VITALS: BP 163/96; PULSE 92; RESP 20; TEMP 36.6; O2SAT 100
--- NOTE | 2024-02-27 12:06 | ECG_ITS ---
Test Date: 2024-02-27 12:18:27 Measurements Intervals [place] Rate: 69 P: 22 [place]: 143 QRS: -28 QRSD: 100 T: 74 QT: 308 QTc: 330 Interpretive Statements SINUS RHYTHM BORDERLINE LEFT AXIS DEVIATION [QRS AXIS < -20] NONSPECIFIC T-WAVE ABNORMALITY NONSPECIFIC INTRAVENTRICULAR CONDUCTION DELAY Electronically Signed On 02-28-2024 11:39:30 TURBOGENERATOR OPERATOR by Shree Gomez
--- NOTE | 2024-02-27 12:12 | ED_ITS ---
HPI - SOB/Dyspnea General Chief Complaint: Shortness of Breath/Dyspnea <Salima Bagley PA-C - Last Filed: 02/28/24 10:33> Stated Complaint: pain in my lungs <Salima Bagley PA-C - Last Filed: 02/28/24 10:33> Time Seen by Provider: 02/27/24 12:12 <Salima Bagley PA-C - Last Filed: 02/28/24 10:33> This is a 53 year old female that presents to the ER for chest pain. She woke up this morning with shooting pains in her lungs. Reports she had pneumonia one month ago diagnosed by urgent care. She finished a Z pack for this. Reports fever and cough again since yesterday. <Salima Bagley PA-C - Last Filed: 02/28/24 10:33> History of Present Illness HPI Narrative: Agree with the HPI above and I would like to add that in triage patient was having epigastric indigestion radiating towards her back and she had several episodes of nauseousness with 1 episode of vomiting. <Adriel Carrillo MD - Last Filed: 02/27/24 15:45> Related Data Home Medications: Home Medications ?Medication ?Instructions ?Recorded ?Confirmed ?Last Taken ?Type hydroxyzine HCl 50 mg tablet 50 mg PO QID 10/28/19 02/03/24 Unknown History amitriptyline 50 mg tablet 50 mg PO DAILY 01/13/22 02/03/24 Unknown History linaclotide 290 mcg capsule 290 mcg PO DAILY 01/13/22 02/03/24 Unknown History (Linzess) buspirone 5 mg tablet 5 mg PO DAILY 05/13/22 02/03/24 Unknown History deutetrabenazine 12 mg tablet 12 mg PO DAILY 05/13/22 02/03/24 Unknown History (Austedo) lithium carbonate 300 mg tablet 300 mg PO DAILY 05/13/22 02/03/24 Unknown History risperidone 4 mg tablet 4 mg PO DAILY 05/13/22 02/03/24 Unknown History temazepam 30 mg capsule 30 mg PO DAILY 05/13/22 02/03/24 Unknown History omeprazole 40 mg capsule,delayed 40 mg PO DAILY 01/12/23 02/03/24 Unknown History release quetiapine 100 mg tablet 100 mg PO DAILY 01/12/23 02/03/24 Unknown History quetiapine 400 mg tablet 400 mg PO DAILY 01/12/23 02/03/24 Unknown History biotin 10,000 mcg capsule 70,000 mcg PO DAILY 10/19/23 02/03/24 Unknown History <Salima Bagley PA-C - Last Filed: 02/28/24 10:33> Allergies/Adverse Reactions: Allergies Allergy/AdvReac Type Severity Reaction Status Date / Time ascorbic acid (From [place] Allergy Severe Anaphylaxis Verified 02/03/24 13:15 Elderberry Immune) Echinacea angustifolia root, Allergy Severe Anaphylaxis Verified 02/03/24 13:15 rhizome extract (From [place] Elderberry Immune) Echinacea purpurea extract Allergy Severe Anaphylaxis Verified 02/03/24 13:15 (From [place] Elderberry Immune) elderberry fruit (From Allergy Severe Anaphylaxis Verified 02/03/24 13:15 Samcus Elderberry Immune) hydrocodone Allergy Severe ANAPHYLAXIS Verified 02/03/24 13:15 propolis (bee glue) (From Allergy Severe Anaphylaxis Verified 02/03/24 13:15 S[place]ucus Elderberry Immune) zinc (From [place] Allergy Severe Anaphylaxis Verified 02/03/24 13:15 Elderberry Immune) codeine Allergy Unknown Other Verified 02/03/24 13:15 ibuprofen AdvReac Unknown Other Verified 02/03/24 13:15 Dairy Allergy Severe RASH/INTESTINE Uncoded 12/11/23 14:58 INFECTION <Salima Bagley PA-C - Last Filed: 02/28/24 10:33> Review of Systems 2 Review of Systems: All systems reviewed & are unremarkable except as noted in HPI and below <Salima Bagley PA-C - Last Filed: 02/28/24 10:33> PMFSH Past Medical History Medical History: Medical History Dysuria Insomnia Uterine fibroid Perimenopause Obesity <Salima Bagley PA-C - Last Filed: 02/28/24 10:33> Surgical History Surgical History: Surgical History History of gynecologic surgery 3 yrs ago 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 Personal hx of gastric bypass <Salima Bagley PA-C - Last Filed: 02/28/24 10:33> Social History Social History: Social History Smoking status: Never smoker Alcohol intake: never Substance use: never Substance use type: does not use Lack of Transportation: No Lack of Food: Never True Current Housing: I Have Housing Concerned About Future Housing: No Difficulty Paying Gas/Electric Bills: No Difficulty Paying for Meds: No Currently Unemployed: No Education: Master's Degree or Higher Difficulty w/ Childcare or Family Care: No Living arrangements: alone Occupation/Education: occupation Gender identity (if verbalized by the patient): Female <Salima Bagley PA-C - Last Filed: 02/28/24 10:33> Exam 2 Narrative: GENERAL: [Well-appearing, well-nourished, and in no acute distress.] HEAD: [Normocephalic, atraumatic.] EYES: [PERRLA and EOMI.] ENT: Nares clear, no rhinorrhea or epistaxis. Mucous membranes moist. NECK: Supple. CHEST: Crackles in the bilateral lung bases but no respiratory distress, good air entry and exhalation HEART: [Regular rate and rhythm]. No murmur heard. [Normal peripheral pulses.] ABDOMEN: [Soft, nondistended], [nontender], [No rigidity or guarding] EXTREMITIES: Normal range of motion. [No edema.] SKIN: Warm, dry, no rash. NEURO: [No focal deficits]. Alert and oriented [x3.] PSYCH: [Normal mood and affect.] <Adriel Carrillo MD - Last Filed: 02/27/24 15:45> Course Vital Signs Vital signs: Vital Signs Temperature 97.9 F 02/27/24 09:14 Pulse Rate 92 02/27/24 09:14 Respiratory Rate 20 02/27/24 09:14 Blood Pressure 163/96 H 02/27/24 09:14 Pulse Oximetry 100 02/27/24 09:14 Oxygen Delivery Room Air 02/27/24 09:14 Temperature 97.9 F 02/27/24 09:14 Pulse Rate 73 02/27/24 13:01 Respiratory Rate 12 02/27/24 13:01 Blood Pressure 131/111 H 02/27/24 13:01 Pulse Oximetry 100 02/27/24 13:02 Oxygen Delivery Room Air 02/27/24 13:02 <Salima Bagley PA-C - Last Filed: 02/28/24 10:33> Vital Signs Temperature 97.9 F 02/27/24 09:14 Pulse Rate 92 02/27/24 09:14 Respiratory Rate 20 02/27/24 09:14 Blood Pressure 163/96 H 02/27/24 09:14 Pulse Oximetry 100 02/27/24 09:14 Oxygen Delivery Room Air 02/27/24 09:14 Temperature 97.9 F 02/27/24 09:14 Pulse Rate 73 02/27/24 13:01 Respiratory Rate 12 02/27/24 13:01 Blood Pressure 131/111 H 02/27/24 13:01 Pulse Oximetry 100 02/27/24 13:02 Oxygen Delivery Room Air 02/27/24 13:02 <Adriel Carrillo MD - Last Filed: 02/27/24 15:45> MDM - SOB/Dyspnea MDM Narrative Medical decision making narrative: This is a 53-year-old female that was recently treated for community- acquired pneumonia with outpatient azithromycin. She states that she is having worsening pain with breathing today and started developing epigastric chest discomfort described as indigestion radiating towards her back. She states that she finished her azithromycin course and initially felt some improvement but now still having a persistent cough and now hurts with deep inhalation. Denies any history of blood clots, recent procedures or surgeries. No history of PE. No trauma or injuries. No history of cardiac catheterization or any cardiac history. She otherwise looks well not any acute distress. She has normal reassuring vital signs with a blood pressure 131/111, no tachycardia, temperature is afebrile, 1% saturation on room air. Breathing comfortably on room air. Given recent pneumonia history concern presently is for persistent or evolving pneumonia or less likely other intrathoracic or abdominal process such as gastritis, esophagitis, ACS, and PE less likely. She has a very low Wells criteria. Cardiac workup was ordered including a troponin, chest x-ray, EKG, CBC, CMP lipase. She was treated with Protonix, Zofran, tramadol p.o. Workup revealed a minor leukocytosis 11.7, no anemia. Normal platelets. Negative troponin, normal hepatic function panel. Creatinine 1.3 similar to her baseline. Chest x-ray shows bilateral lower lobe pneumonia. I did order a CT thorax at this time for better visualization as the x-ray appears relatively clear on my interpretation. CT thorax shows bilateral lower lobe ground-glass opacities suggestive of pneumonia versus edema. She has no CHF signs or symptoms this is likely a true infectious pathology. Sliding hiatal hernia with reflux esophagitis is also seen which explains patient's indigestion, chest and back pain as well. Especially in the setting of negative cardiac workup. EKG was independent reviewed interpreted by myself with no ST segment elevations or depressions or inversions overall normal sinus of without any ectopy or occluded conclusive evidence. Normal rate rhythm an axis. Patient was given a dose of Rocephin and p.o. doxycycline for her community- acquired pneumonia and will be sent home with a dose of doxycycline for the next 5 days. For esophagitis she will be sent home with Pepcid Maalox for symptom control encouraged to follow-up with her regular primary care provider outpatient. Patient verbalized understanding and will return with any new or worsening concerns at any time but keep following up on outpatient basis. < Adriel Carrillo MD - Last Filed: 02/27/24 15:45> Medical Records Attestation: I reviewed the patient's medical records. <Adriel Carrillo MD - Last Filed: 02/27/24 15:45> Lab Data Attestation: I reviewed the patient's lab results. <Adriel Carrillo MD - Last Filed: 02/27/24 15:45> Result diagrams: 02/27/24 12:36 02/27/24 12:36 <Salima Bagley PA-C - Last Filed: 02/28/24 10:33> Labs: Lab Results 02/27/24 02/27/24 Range/Units 12:36 13:36 WBC 11.7 H (4.5-10.0) K/mm3 RBC 4.24 (4.2-5.4) M/mm3 Hgb 12.7 (12.0-15.0) g/dL Hct 41.1 (37.0-47.0) % MCV 96.9 (80-100) fl MCH 30.0 (26-34) pg MCHC 30.9 L (32-36) g/dl RDW 14.6 H (11.5-14.5) % Plt Count 249 (150-375) k/mm3 MPV 10.4 (7.4-10.4) fl Immature Gran % (Auto) 0.4 (0-0.5) % Neut % (Auto) 58.0 (45.5-73.1) % Lymph % (Auto) 33.0 (18.3-44.2) % Scott % (Auto) 7.4 (2.6-8.5) % Eos % (Auto) 0.7 (0-4.4) % Baso % (Auto) 0.5 (0.2-1.2) % Lymph # (Auto) 3.87 H (0.9-3.2) K/mm3 Scott # (Auto) 0.9 H (0.1-0.6) K/mm3 Eos # (Auto) 0.1 (0-0.3) K/mm3 Baso # (Auto) 0.1 (0.0-0.1) K/mm3 Abs Immat Gran (auto) 0.05 H (0.00-0.031) K/mm3 Absolute Neuts (auto) 6.8 H (1.3-6.7) K/mm3 Absolute Nucleated RBC 0.000 (0.0-0.012) K/mm3 Nucleated RBC % 0.0 (0.0-0.2) % PT 13.4 (11.1-14.7) Seconds INR 1.0 APTT 23.8 (22.3-36.8) Seconds Sodium 140 (137-145) mmol/L Potassium 3.8 (3.4-5.0) mmol/L Chloride 110 H (98-107) mmol/L Carbon Dioxide 23 (22-30) mmol/L Anion Gap 7 (4-12) mmol/L BUN 14 (7-17) mg/dL Creatinine 1.30 H (0.7-1.0) mg/dL Estim Creat Clear Calc 55 ml/min Estimated GFR 43 L (59 - ) Glucose 103 (65-110) mg/dL Calcium 9.5 (8.4-10.2) mg/dL Total Bilirubin 0.4 (0.2-1.3) mg/dL AST 21 (14-36) U/L ALT 24 (6-35) U/L Alkaline Phosphatase 102 (38-126) U/L Troponin I < 0.012 (0.000-0.034) ng/mL Total Protein 8.0 (6.3-8.2) g/dL Albumin 4.1 (3.5-5.1) g/dL <Salima Bagley PA-C - Last Filed: 02/28/24 10:33> Lab Results 02/27/24 02/27/24 Range/Units 12:36 13:36 WBC 11.7 H (4.5-10.0) K/mm3 RBC 4.24 (4.2-5.4) M/mm3 Hgb 12.7 (12.0-15.0) g/dL Hct 41.1 (37.0-47.0) % MCV 96.9 (80-100) fl MCH 30.0 (26-34) pg MCHC 30.9 L (32-36) g/dl RDW 14.6 H (11.5-14.5) % Plt Count 249 (150-375) k/mm3 MPV 10.4 (7.4-10.4) fl Immature Gran % (Auto) 0.4 (0-0.5) % Neut % (Auto) 58.0 (45.5-73.1) % Lymph % (Auto) 33.0 (18.3-44.2) % Scott % (Auto) 7.4 (2.6-8.5) % Eos % (Auto) 0.7 (0-4.4) % Baso % (Auto) 0.5 (0.2-1.2) % Lymph # (Auto) 3.87 H (0.9-3.2) K/mm3 Scott # (Auto) 0.9 H (0.1-0.6) K/mm3 Eos # (Auto) 0.1 (0-0.3) K/mm3 Baso # (Auto) 0.1 (0.0-0.1) K/mm3 Abs Immat Gran (auto) 0.05 H (0.00-0.031) K/mm3 Absolute Neuts (auto) 6.8 H (1.3-6.7) K/mm3 Absolute Nucleated RBC 0.000 (0.0-0.012) K/mm3 Nucleated RBC % 0.0 (0.0-0.2) % PT 13.4 (11.1-14.7) Seconds INR 1.0 APTT 23.8 (22.3-36.8) Seconds Sodium 140 (137-145) mmol/L Potassium 3.8 (3.4-5.0) mmol/L Chloride 110 H (98-107) mmol/L Carbon Dioxide 23 (22-30) mmol/L Anion Gap 7 (4-12) mmol/L BUN 14 (7-17) mg/dL Creatinine 1.30 H (0.7-1.0) mg/dL Estim Creat Clear Calc 55 ml/min Estimated GFR 43 L (59 - ) Glucose 103 (65-110) mg/dL Calcium 9.5 (8.4-10.2) mg/dL Total Bilirubin 0.4 (0.2-1.3) mg/dL AST 21 (14-36) U/L ALT 24 (6-35) U/L Alkaline Phosphatase 102 (38-126) U/L Troponin I < 0.012 (0.000-0.034) ng/mL Total Protein 8.0 (6.3-8.2) g/dL Albumin 4.1 (3.5-5.1) g/dL <Adriel Carrillo MD - Last Filed: 02/27/24 15:45> Imaging Data Attestation: I personally reviewed and interpreted this imaging study as follows: < Adriel Carrillo MD - Last Filed: 02/27/24 15:45> My impression: Impressions Chest X-Ray 02/27/24 10:15 IMPRESSION: Bilateral lower lobe pneumonia. Follow-up advised. Chest CT 02/27/24 14:20 IMPRESSION: Bilateral lower lobe groundglass appearance is seen suggestive of atelectasis versus pneumonia versus edema. Follow-up advised. Sliding hiatus hernia with dilated esophagus suggestive of reflux esophagitis. Postoperative changes in the stomach. <Adriel Carrillo MD - Last Filed: 02/27/24 15:45> Critical Care Time Critical Care Time Critical Care Time: No <Salima Bagley PA-C - Last Filed: 02/28/24 10:33> Discharge Plan Discharge Clinical Impression: Esophagitis, acute Pneumonia Qualifiers: Pneumonia type: due to unspecified organism Laterality: bilateral Lung location: unspecified part of lung Qualified Code(s): J18.9 - Pneumonia, unspecified organism <Salima Bagley PA-C - Last Filed: 02/28/24 10:33> Patient Disposition: Home, Self-Care <Salima Bagley PA-C - Last Filed: 02/28/24 10:33> Condition: Stable <LULU Willis Last Filed: 02/28/24 10:33> Instructions: Antibiotic Form, Bacterial Pneumonia (ED), Esophagitis (ED) <Salima Bagley PA-C - Last Filed: 02/28/24 10:33> Additional Instructions: We will send you home with new antibiotics as well as Pepcid and Maalox for your esophageal irritation and your bacterial pneumonia. Follow-up with your regular primary care provider or return to the ER with any new or worsening concerns at any time. <Salima Bagley PA-C - Last Filed: 02/28/24 10:33> Patient Language: German <Salima Bagley PA-C - Last Filed: 02/28/24 10:33> Prescriptions: New doxycycline hyclate 100 mg capsule 100 mg PO BID 7 Days Qty: 14 0RF famotidine [Pepcid] 20 mg tablet 20 mg PO BID 10 Days Qty: 20 0RF ondansetron 4 mg tablet,disintegrating 4 mg PO Q8H PRN (Reason: nausea and vomiting) Qty: 10 0RF Maalox Advanced 1,000-60 mg tablet,chewable 1 tablet PO QID PRN (Reason: indigestion) Qty: 30 0RF No Action amitriptyline 50 mg tablet 50 mg PO DAILY Linzess 290 mcg capsule 290 mcg PO DAILY meclizine 25 mg tablet 25 mg PO TID 3 Days Qty: 10 0RF hydroxyzine HCl 50 mg tablet 50 mg PO QID buspirone 5 mg tablet 5 mg PO DAILY risperidone 4 mg tablet 4 mg PO DAILY temazepam 30 mg capsule 30 mg PO DAILY lithium carbonate 300 mg tablet 300 mg PO DAILY [place] 12 mg tablet 12 mg PO DAILY omeprazole 40 mg capsule,delayed release(DR/EC) 40 mg PO DAILY quetiapine 100 mg tablet 100 mg PO DAILY quetiapine 400 mg tablet 400 mg PO DAILY azithromycin 250 mg tablet See Rx Instructions .ROUTE .COMPLEX Qty: 6 0RF Rx Instructions: For 250 mg dose pack: take 500 mg today (day 1), then 250 mg for 4 days (days 2-5) albuterol sulfate [Ventolin HFA] 90 mcg/actuation HFA aerosol inhaler 2 puff inhalation QID PRN (Reason: shortness of breath or wheezing) Qty: 8.5 0RF biotin 10,000 mcg capsule 70,000 mcg PO DAILY progesterone micronized 200 mg capsule 200 mg PO QHS Qty: 90 3RF estradiol 0.5 mg tablet 0.5 mg PO DAILY Qty: 90 3RF omeprazole 20 mg capsule,delayed release(DR/EC) 20 mg PO DAILY 14 Days Qty: 14 0RF <Salima Bagley PA-C - Last Filed: 02/28/24 10:33> Follow-up/Referrals: Sutherland,Gerber Perea APRN [Primary Care Provider] - <Salima Bagley PA-C - Last Filed: 02/28/24 10:33>
[2024-02-27 12:43] LABS: Basophils Absolute Auto 0.1 K/mm3 (0.0-0.1); Basophils Percent Auto 0.5 % (0.2-1.2); Eosinophils Absolute Auto 0.1 K/mm3 (0-0.3); Eosinophils Percent Auto 0.7 % (0-4.4); Hematocrit 41.1 % (37.0-47.0); Hemoglobin 12.7 g/dL (12.0-15.0); Immature Granulocyte Absolute 0.05 K/mm3 (0.00-0.031); Immature Granulocyte Percent A 0.4 % (0-0.5); Lymphocytes Absolute Auto 3.87 K/mm3 (0.9-3.2); Mean Corpuscular HGB Conc 30.9 g/dl (32-36); Mean Corpuscular Volume 96.9 fl (80-100); Mean Platelet Volume 10.4 fl (7.4-10.4); Monocytes Absolute Auto 0.9 K/mm3 (0.1-0.6); Monocytes Percent Auto 7.4 % (2.6-8.5); Neutrophils Absolute Auto 6.8 K/mm3 (1.3-6.7); Platelet Count Result 249 k/mm3 (150-375); Red Blood Count 4.24 M/mm3 (4.2-5.4); Red Cell Distribution Width 14.6 % (11.5-14.5); White Blood Count 11.7 K/mm3 (4.5-10.0)
[2024-02-27 12:55] LABS: Alanine Aminotransferase 24 U/L (6-35); Albumin Level 4.1 g/dL (3.5-5.1); Alkaline Phosphatase 102 U/L (38-126); Anion Gap 7 mmol/L (4-12); Aspartate Amino Transferase 21 U/L (14-36); Bilirubin,Total 0.4 mg/dL (0.2-1.3); Blood Urea Nitrogen 14 mg/dL (7-17); Calcium 9.5 mg/dL (8.4-10.2); Carbon Dioxide 23 mmol/L (22-30); Chloride 110 mmol/L (98-107); Estimated CRCL calculation 55 ml/min; Estimated Glomerular Filt Rate 43; Glucose 103 mg/dL (65-110); Potassium 3.8 mmol/L (3.4-5.0); Sodium 140 mmol/L (137-145)
[2024-02-27 13:01] VITALS: BP 131/111; PULSE 73; PULSE 74; RESP 12; O2SAT 100
[2024-02-27 13:02] VITALS: O2SAT 100
[2024-02-27 13:06] LABS: Troponin I < 0.012 ng/mL (0.000-0.034)
--- NOTE | 2024-02-27 13:51 | PC.NURSE ---
Pt to CT via stretcher on tele and O2 monitor at this time
[2024-02-27 13:53] LABS: Partial Thromboplastin Time 23.8 Seconds (22.3-36.8); Prothrombin Time 13.4 Seconds (11.1-14.7)
[2024-02-27] MEDS: traMADol HCL (*CRX) 50 MG TABLET PO (14:02)
[2024-02-27] MEDS: PANTOPRAZOLE SODIUM IV 40 MG VIAL IV PUSH (14:02)
[2024-02-27] MEDS: ONDANSETRON INJ 4 MG/2 ML VIAL IV PUSH (14:02)
[2024-02-27] MEDS: cefTRIAXone 2 GM/NS 100 ML 2 GM/100 ML BAG IVPB (15:48)
[2024-02-27] MEDS: DOXYCYCLINE HYCLATE 100 MG TABLET PO (15:52)
== END 2024-02-27 16:39 | disposition home or self-care (01) ==
PROVIDERS: Physician Assistant; Emergency Provider Student in an Organized Health Care Education/Training Program; PCP Nurse Practitioner Family
DX: K20.90 Esophagitis, unspecified without bleeding (principal); J18.9 Pneumonia, unspecified organism; E66.9 Obesity, unspecified; Z68.34 Body mass index [BMI] 34.0-34.9, adult
CPT/HCPCS: 36415; 71046; 71260; 80053; 84484; 85025; 85610; 85730; 93005; 96365; 96375; 99284; A9270; J0696; J2405; J2470; Q9967

== ENCOUNTER 2024-04-20 15:02 | Emergency (ER) | payer BC, SELFPAY ==
[2024-04-20 15:45] VITALS: BP 145/83; PULSE 83; RESP 18; TEMP 37.1; O2SAT 99
--- NOTE | 2024-04-20 15:45 | ED.URI ---
HPI - URI/Sore Throat General Chief Complaint: Upper Respiratory Infection Stated Complaint: Sinus/Bodyaches Source: patient Mode of arrival: ambulatory Limitations: no limitations History of Present Illness HPI Narrative: 53 y/o female presented for c/o cough, nasal congestion, fatigue for one week. Endorses hearing a wheeze or rattling at times. Says the chest feels tight with coughing. denies sob, n/v/d/f/c. Pt reports pneumonia about 4 times last year, and was treated most recently for pneumonia one month ago. Using albuterol inhaler as needed. Patient also reports Left foot pain, Onset 3 days. no injury. Reports the pain is between the 1st and 2nd toe of the mid foot; described as sharp and shooting. Pain is worse with walking on it. No treatment for this. Has a access services assistant for callouses. Related Data Home Medications ?Medication ?Instructions ?Recorded ?Confirmed ?Last Taken ?Type hydroxyzine HCl 50 mg tablet 50 mg PO QID 10/28/19 02/03/24 Unknown History amitriptyline 50 mg tablet 50 mg PO DAILY 01/13/22 02/03/24 Unknown History linaclotide 290 mcg capsule 290 mcg PO DAILY 01/13/22 02/03/24 Unknown History (Linzess) buspirone 5 mg tablet 5 mg PO DAILY 05/13/22 02/03/24 Unknown History deutetrabenazine 12 mg tablet 12 mg PO DAILY 05/13/22 02/03/24 Unknown History (Austedo) lithium carbonate 300 mg tablet 300 mg PO DAILY 05/13/22 02/03/24 Unknown History risperidone 4 mg tablet 4 mg PO DAILY 05/13/22 02/03/24 Unknown History temazepam 30 mg capsule 30 mg PO DAILY 05/13/22 02/03/24 Unknown History quetiapine 100 mg tablet 100 mg PO DAILY 01/12/23 02/03/24 Unknown History quetiapine 400 mg tablet 400 mg PO DAILY 01/12/23 02/03/24 Unknown History biotin 10,000 mcg capsule 70,000 mcg PO DAILY 10/19/23 02/03/24 Unknown History Allergies Allergy/AdvReac Type Severity Reaction Status Date / Time ascorbic acid (From Sambucus Allergy Severe Anaphylaxis Verified 04/03/24 14:54 Elderberry Immune) Echinacea angustifolia root, Allergy Severe Anaphylaxis Verified 04/03/24 14:54 rhizome extract (From Sambucus Elderberry Immune) Echinacea purpurea extract Allergy Severe Anaphylaxis Verified 04/03/24 14:54 (From Sambucus Elderberry Immune) elderberry fruit (From Allergy Severe Anaphylaxis Verified 04/03/24 14:54 Sambucus Elderberry Immune) hydrocodone Allergy Severe ANAPHYLAXIS Verified 04/03/24 14:54 propolis (bee glue) (From Allergy Severe Anaphylaxis Verified 04/03/24 14:54 Sambucus Elderberry Immune) zinc (From Sambucus Allergy Severe Anaphylaxis Verified 04/03/24 14:54 Elderberry Immune) codeine Allergy Unknown Other Verified 04/03/24 14:54 ibuprofen AdvReac Unknown Other Verified 04/03/24 14:54 Dairy Allergy Severe RASH/INTESTINE Uncoded 04/03/24 14:54 INFECTION Review of Systems Review of Systems: per HPI All systems reviewed & are unremarkable except as noted in HPI and below PMFSH Past Medical History Medical History Colon cancer screening Nausea and vomiting in adult GERD (gastroesophageal reflux disease) Dysuria Insomnia Uterine fibroid Perimenopause Obesity Surgical History Surgical History H/O gastric sleeve History of gynecologic surgery 3 yrs ago 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 Personal hx of gastric bypass Social History Social History Smoking status: Never smoker Alcohol intake: never Substance use: never Substance use type: does not use Lack of Transportation: No Lack of Food: Never True Current Housing: I Have Housing Concerned About Future Housing: No Difficulty Paying Gas/Electric Bills: No Difficulty Paying for Meds: No Currently Unemployed: No Education: Master's Degree or Higher Difficulty w/ Childcare or Family Care: No Living arrangements: alone Occupation/Education: occupation Gender identity (if verbalized by the patient): Female Comments At time of signature, I have reviewed and agree with nursing past medical, surgical, social and family history unless otherwise noted. Please see nursing chart for further information. There is no relevant family history pertinent to the presenting complaint Exam Narrative: GENERAL: Well-appearing, in no acute distress. EYES: EOMI. No redness or drainage. Conjunctivae normal. ENT: Mucous membranes pink and moist. No rhinorrhea. TMs normal bilaterally. Throat normal. Uvula midline. CHEST: No respiratory distress. Lungs clear to all garcia. HEART: Regular rate and rhythm. No murmur appreciated. ABDOMEN: Soft, nontender, nondistended, normal active bowel sounds. EXTREMITIES: Normal range of motion. No edema. Left foot without bruising, swelling, erythema or warmth. Mildly tender to plantar surface between 1st and 2nd toes, noted to have a small forming callous. CMS intact. Flat foot. SKIN: Warm, dry, no rash. Capillary refill normal. Normal skin turgor. NEURO: Alert and oriented x3. Gait steady. PSYCH: Normal affect. Course Course Emergency Course: Patient is aware of diagnosis, understands and agrees to treatment plan. Anticipatory guidance given. Patient agrees to follow-up as directed and is aware of reasons to seek care at the emergency department. Portions of this record may have been created with voice recognition software Level of Care: Express Care Visit MDM - URI/Sore Throat MDM Narrative Medical decision making narrative: Neg flu and covid. Imaging is unavailable at this location. Reviewed Rx. Discussed physical exam findings. Advised supportive measures and signs/symptoms to go to the ER. Pt is appropriate for outpt treatment and f/u. Differential Diagnosis Differential diagnosis: Likely upper respiratory infection, otitis media, sinusitis, viral infection, bronchitis and other (pneumonia) Discharge Plan Discharge Clinical Impression: Bronchitis, Acute pain of left foot Patient Disposition: Home, Self-Care Condition: Stable Instructions: Antibiotic Form, Acute Bronchitis (ED), Tendinitis (ED) Additional Instructions: How lung infections spread: When someone with bacterial pneumonia coughs, sneezes, or talks, they release respiratory droplets into the air that can be inhaled by others.?You can also get pneumonia by touching a contaminated surface or object and then touching your mouth or nose. You're generally contagious for around 48 hours after starting antibiotics and your fever goes away.? To prevent the spread of respiratory diseases, you can:? ? Get vaccinated? ? Wash your hands often with soap and water for 20 seconds? ? Cover your mouth with a tissue when you cough or sneeze? ? Avoid people who are already sick with pneumonia? ? Stay home when you have pneumonia Take antibiotics as directed until complete. eat small frequent meals. Get lots of rest and drink fluids. Alternate Tylenol and ibuprofen for pain/fever [id number] cough medication can cause drowsiness, take according to package directions If you have nasal congestion, you can take Zyrtec, Claritin along with Flonase spray Call your Primary Care Doctor and Cover Stripper and make a follow-up appointment in 3 days. Foot pain Rest and elevate the left leg; bear weight as tolerated Apply ice 15-20 minute intervals several times a day Take the steroid as above. Tylenol 1000mg every 8 hours as needed Follow up with your access services assistant Go to the ER for worsening symptoms or concerns Patient Language: Colombian Prescriptions: New doxycycline hyclate 100 mg tablet 100 mg PO BID 7 Days Qty: 14 0RF No Action amitriptyline 50 mg tablet 50 mg PO DAILY Linzess 290 mcg capsule 290 mcg PO DAILY meclizine 25 mg tablet 25 mg PO TID 3 Days Qty: 10 0RF hydroxyzine HCl 50 mg tablet 50 mg PO QID buspirone 5 mg tablet 5 mg PO DAILY risperidone 4 mg tablet 4 mg PO DAILY temazepam 30 mg capsule 30 mg PO DAILY lithium carbonate 300 mg tablet 300 mg PO DAILY Austedo 12 mg tablet 12 mg PO DAILY quetiapine 100 mg tablet 100 mg PO DAILY quetiapine 400 mg tablet 400 mg PO DAILY albuterol sulfate [Ventolin HFA] 90 mcg/actuation HFA aerosol inhaler 2 puff inhalation QID PRN (Reason: shortness of breath or wheezing) Qty: 8.5 0RF biotin 10,000 mcg capsule 70,000 mcg PO DAILY progesterone micronized 200 mg capsule 200 mg PO QHS Qty: 90 3RF estradiol 0.5 mg tablet 0.5 mg PO DAILY Qty: 90 3RF famotidine [Pepcid] 20 mg tablet 20 mg PO BID 10 Days Qty: 20 0RF ondansetron 4 mg tablet,disintegrating 4 mg PO Q8H PRN (Reason: nausea and vomiting) Qty: 10 0RF Maalox Advanced 1,000-60 mg tablet,chewable 1 tablet PO QID PRN (Reason: indigestion) Qty: 30 0RF Follow-up/Referrals: Sutherland,Gerber Perea APRN [Primary Care Provider] - Stand Alone Forms: Work/School Release IP Time of Disposition: 16:02
[2024-04-20 16:10] LABS: EDCOVIDSCREEN Negative (Negative); EDINFLUASCREEN Negative (Negative); EDINFLUBSCREEN Negative (Negative)
== END 2024-04-20 16:35 | disposition home or self-care (01) ==
PROVIDERS: Emergency Provider Nurse Practitioner Family; PCP Nurse Practitioner Family
DX: J40 Bronchitis, not specified as acute or chronic (principal); M79.672 Pain in left foot; Z20.822 Contact with and (suspected) exposure to COVID-19; K21.9 Gastro-esophageal reflux disease without esophagitis; E66.9 Obesity, unspecified; Z98.84 Bariatric surgery status
CPT/HCPCS: 87426; 87804; 99213; G0463

== ENCOUNTER 2024-06-21 01:01 | Day surgery (SDC) | payer BC, SELFPAY ==
[2024-06-17 15:09] VITALS: BMI 37.0
--- OUTSIDE RECORDS SUMMARY | 2024-06-21 01:03 | XMS_ITS | Clinical Summary ---
Author Organization [facility] Address [address] [place] [address] Phone Care Team Providers Care Mechanical Handyman Name Role Phone CADY AIKEN, TONYA Styles Primary Care Provider [phone] KAT QUISPE MD Unavailable Reason for Visit and Chief Complaint * PHONE CALL Plan of Treatment No Plan of Treatment Recorded Assessments Includes: Assessments from this encounter No Assessments Recorded Medical Equipment - Implanted Devices Includes: Current Devices No Medical Equipment Recorded Medications Includes: Medications discussed during this encounter and other current Medications New / Renewed during this visit LASHAY GUZMAN on 04/04/2018 TraMADol HCl 50MG Oral Tablet Provider: LASHAY GUZMAN 15 day supply: 45 tablet, 0 refills Diagnosis: 1 po TID prn Pharmacy: Marzena butler ([facility]) - [address] [place] [address], [phone] - Last Documented On 9 3:38PM By LASHAY GUZMAN ; [facility] Current Medications (continue as prescribed) Citalopram Hydrobromide 40MG Oral Tablet 11/03/2017 Provider: Diagnosis: 1 in am Last Documented On 8 11:04AM By JEISON RAMIREZ ; [facility] ClonazePAM 1MG Oral Tablet 11/03/2017 Provider: Diagnosis: Last Documented On 8 11:04AM By JEISON RAMIREZ ; [facility] HydrOXYzine Pamoate 50MG Oral Capsule 11/03/2017 Pro vider: Diagnosis: Last Documented On 8 11:05AM By JEISON RAMIREZ ; [facility] MetFORMIN HCl ER 750MG Oral Tablet Extended Rele ase 24 Hour 11/03/2017 Provider: Diagnosis: Last Documented On 8 11:05AM By JEISON RAMIREZ ; [facility] Montelukast Sodium 10MG Oral Tablet 11/03/2017 Provi radha: Diagnosis: Last Documented On 8 11:06AM By JEISON RAMIREZ ; [facility] OLANZapine 10MG Oral Tablet 11/03/2017 Provider: Diagnosis: Last Documented On 8 11:06AM By JEISON RAMIREZ ; [facility] OLANZapine 5MG Oral Tablet 11/03/2017 Provider: Diagnosis: Last Documented On 8 11:06AM By JEISON RAMIREZ ; [facility] Prazosin HCl 5MG Oral Capsule 11/03/2017 Provider: Diagnosis: Last Documented On 8 11:22AM By JEISON RAMIREZ ; [facility] QUEtiapine Fumarate 400MG Oral Tablet 11/03/2017 Pro vider: Diagnosis: Last Documented On 8 11:22AM By JEISON RAMIREZ ; [facility] Ibuprofen 800MG Oral Tablet 11/03/2017 Provider: Diagnosis: Last Documented On 8 11:04AM By JEISON RAMIREZ ; [facility] [place] Thyroid 60MG Oral Tablet 11/03/2017 Provider: Diagnosis: Last Documented On 8 11:03AM By JEISON RAMIREZ ; [facility] Baclofen 20MG Oral Tablet 11/03/2017 Provider: Diagnosis: 1 TID Last Documented On 8 11:03AM By JEISON RAMIREZ ; [facility] Medications Administered Includes: Administered Medications from this encounter No Administered Medications Recorded Results Includes: Results discussed during this encounter No Results Recorded For Specified Dates History of Present Illness Includes: History of Present Illness from this encounter No History of Present Illness Recorded Social History Description Last Updated Not using drugs 11/03/2017 Last Documented On 9 1:52PM ; [facility] 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 Last Documented On 9 1:52PM ; [facility] Single 11/03/2017 Last Documented On 9 1:52PM ; [facility] Smoking status : Former smoker 8 Last Documented On 9 1:52PM ; [facility] Medical History Includes: Medical History addressed during this encounter Description Last Updated Hypothyroidism ~Vit D defici ency ~Hyperglycinemia ~Hypertriglyceridemia ~Obesity ~Schizoaffective disorder ~Otitis media, Bilateral ~Hemmorrhoids ~ Chronic Sinusitis ~Constipation ~Cyst of Ovary ~Leukorrhea ~Amenorrhea ~Acne ~Dysphagia ~Dysuria ~Polyuria ~Pelvic Mass ~Increased Liver function 11/03/2017 Last Documented On 9 1:52PM ; [facility] History of diabetes mellitus 11/03/2017 Last Documented On 9 1:52PM ; [facility] Surgery Tumor on Uterus 11/03/2017 Last Documented On 9 1:52PM ; [facility] History of hypertension 11/03/2017 Last Documented On 9 1:52PM ; [facility] Family History Includes: Family History addressed during this encounter Description Last Updated Family medical history was unknown 11/03 Last Documented On 9 1:52PM ; [facility] Review of Systems Includes: Review of Systems from this encounter No Review of Systems Recorded Mental Status Includes: Mental Status from this encounter No Mental Status Recorded Functional Status Includes: Functional Status from this encounter No Functional Status Recorded Physical Exam Includes: Physical Exam from this encounter No Physical Exam Recorded Allergies Includes: Active Allergies Substance Type Reaction Onset Date Resolved Date Statu s DAIRY Allergy 11/03/2017 Active Last Documented On 8 8:33AM ; [facility] Encounters Encounter Provider Location Date Check-In Time Check-Out Time Diagnosis * PHONE CALL LASHAY COVARRUBIAS [facility] 9 1:52PM 11:59PM Insurance Includes: Active Insurance Policies Plan Name Member ID Group # Subscriber Relationship Effect rhonda Dates 1 - [employer] [id number] STARLA SCOTT Self Clinical Notes Includes: Clinical Notes from this encounter No Clinical Notes Recorded
--- OUTSIDE RECORDS SUMMARY | 2024-06-21 01:03 | XMS_ITS | Clinical Summary ---
Author Organization [facility] Address [address] [place] [id number] Care Team Providers Care Cam Specialist Name Role Phone Unavailable Primary Care Provider Unavailabl e Encounters Date Type Department Care Team Description 05/31/2024 Telephone [facility] - [address], [address] [place] [address] Gricel Khan MD Reschedule from Last 3 Months Social History Tobacco Use Types Packs/Day Years Used Date Smoking Tobacco: Never Assessed Comments Unknown Sex and Gender Information Value Date Recorded Sex Assigned at Not on file Legal Sex Female 8:07 PM CDT Gender Identity Not on file Sexual Orientation Not on file Plan of Treatment Health Maintenance Due Date Last Done Comments Cervical Cancer Screening Pa p Smear (Age 30 to 64) Every 3 Years 1971 Colorectal Cancer Screening Colonoscopy (10 Years) 1971 Annual Physical 07/24/1974 Hepatitis C 07/24/1989 Hepatitis B Vaccines (1 of 3 - 19+ 3-dose series) 07/24/1990 Cervical Cancer Screening Pa p with HPV Testing (Age 30 to 64) Every 5 Years 07/24/2001 Cervical Cancer Screening wi th HPV 07/24/2001 Mammogram Screening 2011 Zoster Vaccines (1 of 2) 07/24/2021 COVID-19 Vaccine (3 - 2023-2 5 season) 2023 09/25/2020, 08/28/2020 PHQ-2 (Physician Winter) 03/20/2024 DTaP, Tdap and Td Vaccines ( 3 - Td or Tdap) 06/23/2032 06/23/2022, 03/31/2011 Meningococcal B Vaccine Aged Out No l onger eligible based on patient's age to complete this topic Meningococcal Vaccine Aged Out No blair juaquin eligible based on patient's age to complete this topic Pneumococcal Vaccine: Pediatrics (0 to 5 Years) and At-Risk Patients (6 to 64 Years) Aged Out No longer eligible b ased on patient's age to complete this topic RSV Immunizations Under 20 Months Aged Out No longer eligible b ased on patient's age to complete this topic Insurance [facility]
--- OUTSIDE RECORDS SUMMARY | 2024-06-21 01:03 | XMS_ITS ---
Author Organization [facility] Address [address] [place] [address] Phone Care Team Providers Care Brass Cutter Name Role Phone CADY AIKEN, TONYA Styles Primary Care Provider [phone] KAT QUISPE MD Unavailable Plan of Treatment No Plan of Treatment Recorded Assessments Includes: Assessments for all patient encounters Findings Encounter Date Arthralgia of the right knee/patella/tibia/fibula PAIN MANAGEMENT FOLLOW UP with LASHAY L SATISH ANP- 12/14/2017 Last Documented On 8 8:57AM ; [facility] Lumbago PAIN MANAGEMENT FOLLOW UP with T ZARI L SATISH ANP- 12/14/2017 Last Documented On 8 8:57AM ; [facility] Myalgia PAIN MANAGEMENT FOLLOW UP with T ZARI L SATISH ANP-BC 12/14/2017 Last Documented On 8 8:57AM ; [facility] Sacroiliitis PAIN MANAGEMENT FOLLOW UP with T ZARI L SATISH ANP-BC 12/14/2017 Last Documented On 8 8:57AM ; [facility] Arthralgia of the right knee/patella/tibia/fibula PAIN MANAGEMENT NEW CONSULT with LASHAY L SATISH ANP-BC 11/03/2017 Last Documented On 8 8:19AM ; [facility] Lumbago PAIN MANAGEMENT NEW CONSULT with LASHAY L SATISH ANP-BC 11/03/2017 Last Documented On 8 8:19AM ; [facility] Myalgia PAIN MANAGEMENT NEW CONSULT with LASHAY L SATISH ANP-BC 11/03/2017 Last Documented On 8 8:19AM ; [facility] Sacroiliitis PAIN MANAGEMENT NEW CONSULT with LASHAY L SATISH ANP-BC 11/03/2017 Last Documented On 8 8:19AM ; [facility] Medical Equipment - Implanted Devices Includes: Current and historical Devices No Medical Equipment Recorded Medications Includes: Current and historical Medications Current Medications (continue as prescribed) TraMADol HCl 50MG Oral Tablet 04/04/2018 Provider: LASHAY GUZMAN Diagnosis: 1 po TID prn Last Documented On 9 3:38PM By LASHAY GUZMAN ; [facility] Citalopram Hydrobromide 40MG Oral Tablet 11/03/2017 Provider: Diagnosis: 1 in am Last Documented On 8 11:04AM By JEISON RAMIREZ ; [facility] ClonazePAM 1MG Oral Tablet 11/03/2017 Provider: Diagnosis: Last Documented On 8 11:04AM By JEISON RAIMREZ ; [facility] HydrOXYzine Pamoate 50MG Oral Capsule 11/03/2017 Pro vider: Diagnosis: Last Documented On 8 11:05AM By JEISON RAMIREZ ; [facility] MetFORMIN HCl ER 750MG Oral Tablet Extended Rele ase 24 Hour 11/03/2017 Provider: Diagnosis: Last Documented On 8 11:05AM By JEISON RAMIREZ ; [facility] Montelukast Sodium 10MG Oral Tablet 11/03/2017 Provi radha: Diagnosis: Last Documented On 8 11:06AM By JEISON RAMIREZ ; [facility] OLANZapine 10MG Oral Tablet 11/03/2017 Provider: Diagnosis: Last Documented On 8 11:06AM By JEISON RAMIREZ ; [facility] OLANZapine 5MG Oral Tablet 11/03/2017 Provider: Diagnosis: Last Documented On 8 11:06AM By JEISON RAMIREZ ; [facility] Prazosin HCl 5MG Oral Capsule 11/03/2017 Provider: Diagnosis: Last Documented On 8 11:22AM By JEISON RAMIREZ ; [facility] QUEtiapine Fumarate 400MG Oral Tablet 11/03/2017 Pro vider: Diagnosis: Last Documented On 8 11:22AM By JEISON RAMIREZ ; [facility] Ibuprofen 800MG Oral Tablet 11/03/2017 Provider: Diagnosis: Last Documented On 8 11:04AM By JEISON RAMIREZ ; [facility] [place] Thyroid 60MG Oral Tablet 11/03/2017 Provider: Diagnosis: Last Documented On 8 11:03AM By JEISON RAMIREZ ; [facility] Baclofen 20MG Oral Tablet 11/03/2017 Provider: Diagnosis: 1 TID Last Documented On 8 11:03AM By JEISON RAMIREZ ; [facility] Past Medications on file TraMADol HCl 50MG Oral Tablet 02/26/2018 - 04/04/2018 Provider: LASHAY GUZMAN Diagnosis: 1 every 6 hours as needed Last Documented On 9 3:30PM By LASHAY GUZMAN ; [facility] TraMADol HCl 50MG Oral Tablet 01/10/2018 - 02/26/2018 Provider: LASHAY GUZMAN Diagnosis: 1 every 6 hours as needed Last Documented On 8 10:48AM By LASHAY GUZMAN ; [facility] TraMADol HCl 50MG Oral Tablet 11/03/2017 - 11/03/2017 Provider: Diagnosis: Last Documented On 8 11:40AM By LASHAY GUZMAN ; [facility] TraMADol HCl 50MG Oral Tablet 11/03/2017 - 01/10/2018 Provider: LASHAY GUZMAN Diagnosis: 1 every 6 hours as needed Last Documented On 8 2:30PM By LASHAY GUZMAN ; [facility] Medications Administered Includes: Administered Medications in patient's chart No Administered Medications Recorded Results Includes: Results from 06/22/2023 through 06/21/2024 No Results Recorded For Specified Dates History of Present Illness History of Present Illness not supported for this document type No History of Present Illness Recorded Social History Description Last Updated Not using drugs 11/03/2017 Last Documented On 8 8:19AM ; [facility] 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 Last Documented On 8 8:19AM ; [facility] Single 11/03/2017 Last Documented On 8 8:19AM ; [facility] Smoking status : Former smoker 8 Last Documented On 8 8:19AM ; [facility] Medical History Includes: Medical History in patient's chart Description Last Updated Hypothyroidism ~Vit D defici ency ~Hyperglycinemia ~Hypertriglyceridemia ~Obesity ~Schizoaffective disorder ~Otitis media, Bilateral ~Hemmorrhoids ~ Chronic Sinusitis ~Constipation ~Cyst of Ovary ~Leukorrhea ~Amenorrhea ~Acne ~Dysphagia ~Dysuria ~Polyuria ~Pelvic Mass ~Increased Liver function 11/03/2017 Last Documented On 8 8:19AM ; [facility] History of diabetes mellitus 11/03/2017 Last Documented On 8 8:19AM ; [facility] Surgery Tumor on Uterus 11/03/2017 Last Documented On 8 8:19AM ; [facility] History of hypertension 11/03/2017 Last Documented On 8 8:19AM ; [facility] Family History Includes: Family History in patient's chart Description Last Updated Family medical history was unknown 11/03 Last Documented On 8 8:19AM ; [facility] Review of Systems Review of Systems not supported for this document type No Review of Systems Recorded Mental Status No Mental Status Recorded Functional Status No Functional Status Recorded Physical Exam Physical Exam not supported for this document type No Physical Exam Recorded Allergies Includes: Active, inactive, and resolved Allergies Substance Type Reaction Onset Date Resolved Date Statu s DAIRY Allergy 11/03/2017 Active Last Documented On 8 8:33AM ; [facility] Insurance Includes: Active Insurance Policies Plan Name Member ID Group # Subscriber Relationship Effect rhonda Dates 1 - [employer] [id number] STARLA SCOTT Self Clinical Notes Includes: Signed Clinical Notes starting from 04/08/2022 No Clinical Notes Recorded
--- OUTSIDE RECORDS SUMMARY | 2024-06-21 01:03 | XMS_ITS | Clinical Summary ---
Author Organization [facility] Address [address] [place] [address] Phone Care Team Providers Care Sealer Operator Name Role Phone CADY AIKEN, TONYA Styles Primary Care Provider [phone] JOSE ENRIQUE AIKEN, KAT Martin Unavailable Reason for Visit and Chief Complaint * PHONE CALL Plan of Treatment No Plan of Treatment Recorded Assessments Includes: Assessments from this encounter No Assessments Recorded Medical Equipment - Implanted Devices Includes: Current Devices No Medical Equipment Recorded Medications Includes: Medications discussed during this encounter and other current Medications New / Renewed during this visit LASHAY GUZMAN on 01/10/2018 TraMADol HCl 50MG Oral Tablet Provider: LASHAY GUZMAN 30 day supply: 120 tablet, 0 refills Diagnosis: 1 every 6 hours as needed Pharmacy: Aaliyah otero [place] ([facility] [place]) - [address] [place] [address], [phone] - Last Documented On 8 10:48AM By LASHAY GUZMAN ; [facility] Current Medications (continue as prescribed) TraMADol HCl 50MG Oral Tablet 04/04/2018 Provider: LASHAY GUZMAN Diagnosis: 1 po TID prn Last Documented On 9 3:38PM By LASHAY GUZMAN ; [facility] Citalopram Hydrobromide 40MG Oral Tablet 11/03/2017 Provider: Diagnosis: 1 in am Last Documented On 8 11:04AM By JEISON RAMIREZ ; [facility] ClonazePAM 1MG Oral Tablet 11/03/2017 Provider: Diagnosis: Last Documented On 8 11:04AM By JEISON RAMIREZ ; [facility] HydrOXYzine Pamoate 50MG Oral Capsule 11/03/2017 Pro vider: Diagnosis: Last Documented On 8 11:05AM By JEISON RAMIREZ ; [facility] MetFORMIN HCl ER 750MG Oral Tablet Extended Rele ase 24 Hour 11/03/2017 Provider: Diagnosis: Last Documented On 8 11:05AM By JEISON RAMIREZ ; [facility] Montelukast Sodium 10MG Oral Tablet 11/03/2017 Provi radha: Diagnosis: Last Documented On 8 11:06AM By JEISON RAMIREZ ; [facility] OLANZapine 10MG Oral Tablet 11/03/2017 Provider: Diagnosis: Last Documented On 8 11:06AM By JEISON RAMIREZ ; [facility] OLANZapine 5MG Oral Tablet 11/03/2017 Provider: Diagnosis: Last Documented On 8 11:06AM By JEISON RAMIREZ ; [facility] Prazosin HCl 5MG Oral Capsule 11/03/2017 Provider: Diagnosis: Last Documented On 8 11:22AM By JEISON RAMIREZ ; [facility] QUEtiapine Fumarate 400MG Oral Tablet 11/03/2017 Pro vider: Diagnosis: Last Documented On 8 11:22AM By JEISON RAMIREZ ; [facility] Ibuprofen 800MG Oral Tablet 11/03/2017 Provider: Diagnosis: Last Documented On 8 11:04AM By JEISON RAMIREZ ; [facility] [place] Thyroid 60MG Oral Tablet 11/03/2017 Provider: Diagnosis: Last Documented On 8 11:03AM By JEISON RAMIREZ ; [facility] Baclofen 20MG Oral Tablet 11/03/2017 Provider: Diagnosis: 1 TID Last Documented On 8 11:03AM By JEISON RAMIREZ ; [facility] Medications Administered Includes: Administered Medications from this encounter No Administered Medications Recorded Results Includes: Results discussed during this encounter No Results Recorded For Specified Dates History of Present Illness Includes: History of Present Illness from this encounter No History of Present Illness Recorded Social History Description Last Updated Not using drugs 11/03/2017 Last Documented On 8 1:59PM ; [facility] Occupation [employer] 11/03/2017 Last Documented On 8 1:59PM ; [facility] Single 11/03/2017 Last Documented On 8 1:59PM ; [facility] Smoking status : Former smoker 8 Last Documented On 8 1:59PM ; [facility] Medical History Includes: Medical History addressed during this encounter Description Last Updated Hypothyroidism ~Vit D defici ency ~Hyperglycinemia ~Hypertriglyceridemia ~Obesity ~Schizoaffective disorder ~Otitis media, Bilateral ~Hemmorrhoids ~ Chronic Sinusitis ~Constipation ~Cyst of Ovary ~Leukorrhea ~Amenorrhea ~Acne ~Dysphagia ~Dysuria ~Polyuria ~Pelvic Mass ~Increased Liver function 11/03/2017 Last Documented On 8 1:59PM ; [facility] History of diabetes mellitus 11/03/2017 Last Documented On 8 1:59PM ; [facility] Surgery Tumor on Uterus 11/03/2017 Last Documented On 8 1:59PM ; [facility] History of hypertension 11/03/2017 Last Documented On 8 1:59PM ; [facility] Family History Includes: Family History addressed during this encounter Description Last Updated Family medical history was unknown 11/03 Last Documented On 8 1:59PM ; [facility] Review of Systems Includes: Review of Systems [...] Active Last Documented On 8 8:33AM ; [facility] Encounters Encounter Provider Location Date Check-In Time Check-Out Time Diagnosis * PHONE CALL LASHAY [facility] 8 1:59PM 11:59PM Insurance Includes: Active Insurance Policies Plan Name Member ID Group # Subscriber Relationship Effect rhonda Dates 1 - [employer] [id number] STARLA SCOTT Self Clinical Notes Includes: Clinical Notes from this encounter No Clinical Notes Recorded
--- OUTSIDE RECORDS SUMMARY | 2024-06-21 01:03 | XMS_ITS | Clinical Summary ---
Author Organization [facility] Address [address] [place] [address] Phone Care Team Providers Care Diesel Locomotive Engineer Name Role Phone TONYA LAZAR MD Primary Care Provider [phone] KAT QUSIPE MD Unavailable Reason for Visit and Chief Complaint * PHONE CALL Plan of Treatment No Plan of Treatment Recorded Assessments Includes: Assessments from this encounter No Assessments Recorded Medical Equipment - Implanted Devices Includes: Current Devices No Medical Equipment Recorded Medications Includes: Medications discussed during this encounter and other current Medications Current Medications (continue as prescribed) TraMADol HCl 50MG Oral Tablet 04/04/2018 Provider: LASHAY GUZMAN Diagnosis: 1 po TID prn Last Documented On 9 3:38PM By LASHAY GUZMAN ; [facility] Citalopram Hydrobromide 40MG Oral Tablet 11/03/2017 Provider: Diagnosis: 1 in am Last Documented On 8 11:04AM By JEISON RAMIREZ ; [facility] ClonazePAM 1MG Oral Tablet 11/03/2017 Provider: Diagnosis: Last Documented On 8 11:04AM By JEISON RAMIREZ ; [facility] HydrOXYzine Pamoate 50MG Oral Capsule 11/03/2017 Pro vider: Diagnosis: Last Documented On 8 11:05AM By JEISON RAMIREZ ; [facility] MetFORMIN HCl ER 750MG Oral Tablet Extended Rele ase 24 Hour 11/03/2017 Provider: Diagnosis: Last Documented On 8 11:05AM By JEISON RAMIREZ ; [facility] Montelukast Sodium 10MG Oral Tablet 11/03/2017 Provi radha: Diagnosis: Last Documented On 8 11:06AM By JEISON RAMIREZ ; [facility] OLANZapine 10MG Oral Tablet 11/03/2017 Provider: Diagnosis: Last Documented On 8 11:06AM By JEISON RAMIREZ ; [facility] OLANZapine 5MG Oral Tablet 11/03/2017 Provider: Diagnosis: Last Documented On 8 11:06AM By JEISON RAMIREZ ; [facility] Prazosin HCl 5MG Oral Capsule 11/03/2017 Provider: Diagnosis: Last Documented On 8 11:22AM By JEISON RAMIREZ ; [facility] QUEtiapine Fumarate 400MG Oral Tablet 11/03/2017 Pro vider: Diagnosis: Last Documented On 8 11:22AM By JEISON RAMIREZ ; [facility] Ibuprofen 800MG Oral Tablet 11/03/2017 Provider: Diagnosis: Last Documented On 8 11:04AM By JEISON RAMIREZ ; [facility] [place] Thyroid 60MG Oral Tablet 11/03/2017 Provider: Diagnosis: Last Documented On 8 11:03AM By JEISON RAMIREZ ; [facility] Baclofen 20MG Oral Tablet 11/03/2017 Provider: Diagnosis: 1 TID Last Documented On 8 11:03AM By JEISON RAMIREZ ; [facility] Medications Administered Includes: Administered Medications from this encounter No Administered Medications Recorded Results Includes: Results discussed during this encounter No Results Recorded For Specified Dates History of Present Illness Includes: History of Present Illness from this encounter No History of Present Illness Recorded Social History No Social History Recorded - Smoking Status Unknown Medical History Includes: Medical History addressed during this encounter No Medical History Recorded Family History Includes: Family History addressed during this encounter No Family History Recorded Review of Systems Includes: Review of Systems [...] Active Last Documented On 8 8:33AM ; [facility] Encounters Encounter Provider Location Date Check-In Time Check-Out Time Diagnosis * PHONE CALL LASHAY COVARRUBIAS [facility]- 9 2:57PM 11:59PM Insurance Includes: Active Insurance Policies Plan Name Member ID Group # Subscriber Relationship Effect rhonda Dates 1 - [employer] [id number] STARLA SCOTT Self Clinical Notes Includes: Clinical Notes from this encounter No Clinical Notes Recorded
--- OUTSIDE RECORDS SUMMARY | 2024-06-21 01:03 | XMS_ITS | Data Portability ---
Author Organization [facility] [employer] [facility], Main Office Address [address] [place] [address] Care Team Providers Care Acoustics Teacher Name Role Phone ELI UREÑA ZACHARY Primary Care Provider [phone] LEI UREÑA ZACHARY Referring Provider SHANTANU WHEELER Primary Care Provider [phone] Assessment Encounter Date Assessment Date Assessment LastModified by Organization Details LastModified Time 12/12/2023 12/12/2023 By previous x-ra y exam the patient is noted have severe primary osteoarthritis right knee more moderate changes due to primary osteoarthritis of the left knee. Today under sterile conditions I injected the patient's bilateral knee joints in the office with Euflexxa injection 3. From the specialty pharmacy. She tolerated the procedure well. Will see her back as needed we can do this again in 6 months versus doing cortisone in between. She voiced understanding and agrees above plan she will call for any further problems difficulties or questions. [email or web address] Not available 12/12/2023 16:31:09 Plan of Treatment Reminders Order Date Submit Date Provider Last Modified By Organization Details Last Modified Time Details Appointments None recorded. Lab PPD (purified protein derivative) , skin test 2023 024 MANUEL [facility] [address], [place], [address], 17:07:31 Referral neurologist referral - Please call patient to schedule an appointment . Thank you. 2024 025 lorri Khan MD, [address] [facility], [address], [place], [address], 5 10:25:27 Procedures injection/a spiration joint/bursa (PROC) - in office procedure, administere d by provider 2023 024 [email or web address] In-Office Order, Internal Use Only DO Not Attach Compendium DO Not Attach Compendium, Do Not Delete/merge, [id number] 4 15:27:46 Surgeries None recorded. Imaging None recorded. Medication Orders silver sulfadiazin e 1 % topical cream 2024 [facility] #69586, [address], [place], [id number], 5 16:22:25 albuterol sulfate HFA 90 mcg/actuati on aerosol inhaler 2024 [facility] #60468, [address], [place], [id number], 5 16:22:21 ipratropium bromide 21 mcg (0.03 %) nasal spray 2024 [facility] #08496, [address] [facility], [place], [place], [id number], 5 16:20:25 omeprazole 40 mg capsule,del ayed release 2024 [facility] #73739, [address] [facility], [place], [place], [id number], 5 16:22:24 amitriptyli ne 50 mg tablet 2024 [facility] #77818, [address], [place], [id number], 5 16:20:21 famotidine 40 mg tablet 2024 025 MANUEL [facility] #08123, [address] [facility], [place], [place], [id number], 16:20:19 Tubersol 5 tub. unit/0.1 mL intradermal injection solution 2023 024 Not available 16:03:19 Patient TargetsNo targets recorded. Patient Instructions Encounter Date Encounter Id Patient Instructions Last Modified By Organization Details Last Modified Time 12/06/2023 [id number] PT WITH N/V. DOI NG WELL WITH FAMOTIDINE / AMITRIPTYLLINE . CONT SAME F/U NEEDED . PT HAS HER PCP WRITING HER REFILLS . [email or web address] Not available 12/06/2023 16:01:02 04/17/2024 [id number] Follow up in 6 months Prescriptions sent to pharmacy Tests: Referral: Recommend: Pneumococcal vaccine Shingles vaccine [email or web address] Not available 04/17/2024 16:20:38 Reason for Referral Neurologist Referral for Malou n in bilateral legs Please call patient to schedule an appointment. Thank you. Referring Physician: Luh Hdez, Internal Medicine, Encounter Date: 04/17/2024 Results Created Date Observation Date Name Description Value Unit Range Abnormal Flag Note LastModifiedBy Organization Detail LastModifiedTime 12/13/19 24 12/13/2023 PPD (priyank fied prote in deriv ative ), skin test TB negati ve Not Available [facility] [address], [place], [address], 12/08/2023 15:00:35 12/13/19 24 12/13/2023 PPD (priyank fied prote in deriv ative ), skin test TB negati ve Not Available [address], [place], [address], 12/08/2023 15:00:35 11/28/19 24 XR, knee No observ ation record ed. [email or web address] [facility] [place] [address] [facility] [address], [place], [address], 11/28/2023 15:28:55 02/04/20 24 02/03/2024 XR, chest , 2 view No observ ation record ed. [email or web address] [facility] [address], [place], [address], 02/05/2024 09:13:26 02/27/20 24 02/27/2024 XR, chest , 2 view No observ ation record ed. [address], [place], [address], 02/29/2024 11:06:38 02/27/20 24 02/27/2024 XR, chest , 2 view No observ ation record ed. [address], [place], [address], 02/29/2024 11:06:50 Result Notes None recorded. Problems Name Problem SNOMED Code Status Onset Date Resolution Date Notes Provider Name and Address Organization Details Recorded Time Occupation -related stress disorder 52324300 Active 2021 Luh Hdez APRN [address] [employer], [address], [place], [address] , [email or web address] 5 13:55:01 Closed fracture of left foot 0422996062697 9103 Active Not Available [facility] 3 16:04:26 Acne 76935540 Active Not Available [facility] 3 16:04:26 Fracture of phalanx of finger 13106493 Active Not Available [facility] 3 16:04:26 Cyclical vomiting syndrome 37112652 Active 2021 Not Available [facility] 3 16:04:26 Morbid obesity 367272996 Active 2018 Luh Hdez APRN [address] [employer], [address], [place], [address] , [email or web address] 5 13:55:10 Hypertrigl yceridemia 809063082 Active Luh Hdez APRN [address], [address], [place], [address] , [employer] 5 13:55:16 Current tear of medial cartilage AND/OR meniscus of knee Active Not Available [facility] 3 16:04:26 Vitamin D deficiency 42138718 Active 2016 Luh Hdez APRN [address], [address], [place], [address] , [employer] 5 13:54:38 Chronic maxillary sinusitis 40523712 Active 2021 Not Available [facility] 3 16:04:26 Hypertensi ve disorder 16762714 Active Luh Hdez APRN [address], [address], [place], [address] , [employer] 5 13:55:19 Osteoarthr itis 311065080 Active Luh Hdez APRN [address], [address], [place], [address] , [employer] 5 13:56:03 Hypothyroi dism 98136178 Active Luh Hdez APRN [address], [address], [place], [address] , [employer] 5 13:55:12 History of bariatric surgical procedure 303923968 Active Luh Hdez APRN [address], [place], [address] , [employer] 5 13:55:21 Allergic rhinitis 58480073 Active 2021 Not Available [facility] 3 16:04:26 Otitis media 49751336 Active Not Available [facility] 3 16:04:26 Increased liver function 96690553 Active Not Available [facility] 3 16:04:26 Schizoaffe ctive disorder 83726990 Active Luh Hdez APRN [address], [address], [place], [address] , [employer] [facility] 5 13:54:50 Acid reflux 548063878 Active Not Available [facility] 3 16:04:26 Hemorrhoid s 29140568 Active Not Available [facility] 3 16:04:26 Diabetes mellitus 87363340 Active Luh Hdez APRN [address], [address], [place], [address] , [employer] [facility] [employer] [facility] 5 16:16:08 Cyst of ovary 85976042 Active Not Available [facility] 3 16:04:26 Cerebrospi nal fluid rhinorrhea 20728156 Active 2021 Not Available [facility] 3 16:04:26 History of traumatic brain injury 0295710015787 0 Active 2021 Luh Hdez APRN [address], [address], [place], [address] , [employer] [facility] 5 13:55:27 Pneumonia caused by SARS-CoV-2 5191106985393 46554 Active 2022 Not Available [facility] 3 16:04:26 Chronic idiopathic constipati on 32445542 Active 2022 Luh Hdez APRN [address], [place], [address] , [employer] [facility] [employer] [facility] 5 13:54:36 Dyspnea on exertion 05511774 Active 2022 Luh Hdez APRN [address], [address], [place], [address] , [employer] [facility] [employer] [facility] 5 13:55:50 Bronchiect asis 69631221 Active 2022 Rashi De Oliveira MD [address], [address], [place], [address] , [employer] - [facility] 3 15:33:26 Stricture of esophagus 88629449 Active 2022 Luh Hdez APRN [address], [address], [place], [address] , [facility] 5 13:54:45 Pain of bilateral knee joints 2137892580721 04 Active 2022 MARICRUZ Enrique, [place] [facility] [place] [facility] 3 11:19:22 Bilateral osteoarthr itis of knees 0211396711115 07 Active 2022 Luh Hdez APRN [address], [address], [place], [address] , [facility] 5 13:54:21 CT of chest abnormal 6838496752999 9102 Active 2022 Kaity Gutierrez MD [address], [address], [place], [address] , [facility] 3 12:52:31 Lesion of face 789353034 Active 2022 ELI Nieto [address], [address], [place], [address] , [facility] 3 16:08:27 Obesity 028079841 Active 2022 Luh Hdez APRN [address], [address], [place], [address] , [facility] 5 13:55:05 Acute sinusitis 21165425 Active 2022 ELI Nieto [address], [address], [place], [address] , [facility] 3 16:13:16 Esophageal dysphagia 01580555 Active 2022 Luh Hdez APRN [address], [address], [place], [address] , [facility] 5 13:55:33 Burn of skin 529354695 Active 2022 ELI Nieto [address], [address], [place], [address] , [facility] 3 16:08:12 Gastroesop hageal reflux disease 659741329 Active 2023 Luh Hdez APRN [address], [address], [place], [address] , [facility] 5 13:55:29 Vertigo 223438087 Active 2023 Luh Hdez APRN [address], [address], [place], [address] , [facility] 5 13:54:42 Upper respirator y infection 08028470 Active 2023 MARSHA Colunga [address], [address], [place], [address] , [facility] 4 20:48:54 Viral gastroente ritis 901151491 Active 2023 ELI Nieto [address], [address], [place], [address] , [facility] 4 16:21:40 Pruritic rash 09237400 Active 2023 BIBIANA Nieto-C [address], [address], [place], [address] , [facility] 4 16:24:24 Nausea 489138772 Active 2023 BIBIANA Nieto-C [address], [address], [place], [address] , [facility] 4 14:44:17 Cough 09824449 Active 2023 BIBIANA Nieto-C [address], [address], [place], [address] , [facility] 4 14:44:45 Glomerular filtration rate below reference range 998954504 Active 2023 BIBIANA Nieto-C [address], [address], [place], [address] , [email or web address] 4 11:33:09 Abnormal posture 78616235 Active 2023 Luh Hdez APRN [address] [address], [place], [address] , [employer] 5 13:54:11 Nausea and vomiting 57232214 Active 2023 Kaity Gutierrez MD [address], [address] , [email or web address] 4 15:59:45 Dyspnea 292422391 Active 2024 Luh Hdez APRN [address], [address] , [email or web address] 5 16:18:43 Pain in bilateral legs 5741325278654 9108 Active 2024 Luh Hdez APRN [address], [address] , [email or web address] 5 16:24:37 Notes:Medical History: Acne TBI Left frontal, parietal, occipital infarcts Anxiety/Schizoaffective disorder COVID infections 10/2021, 01/2022, 04/2022 Bilateral maxillary sinusitis Eosinophils 410/uL IgE 57 IU/mL AAT PiMM 172 mg% RML > lingular bronchiectasis Obesity with milde restrictive airflow impairment Hypothyroidism Mixed hyperlipidemia Hypertension Prediabetes PER Hemorrhoids CKD Ovarian cyst Vit D deficiency Finger fracture Left foot fracture Thoracic spondylosis Procedure History: Bilateral breast implants 1994 Gastric sleeve surgery 2018 Occupational History: metalworker Therapist Problem Notes None recorded. Procedures Surgical History Date Name Laterality Status Provider Name and Address Organization Details Recorded Time 09/02/19 Most Recent Mammogram completed Marivel Mcnally [email or web address] 11/14/2022 15:58:01 02/08/20 19 gastrectomy completed Not Available [facility] 05/19/19 00:52:23 [employer] Surgery completed Not Available [facility] 05/18/2022 00:52:23 bronchoscopy completed Darling Whitney RN [email or web address] 09/06/2022 11:47:32 Imaging Results Imaging Date Name Status LastModified by Celestino serrano Details LastModified Time 11/28/2023 XR, knee completed [email or web address] [place] [address], [place], [address], 11/28/2023 15:28:55 02/03/2024 XR, chest, 2 view completed [email or web address] [facility] [address], [place], [address], 02/05/2024 09:13:26 02/27/2024 XR, chest, 2 view completed [address] [place] [address] [address], [place], [address], 02/29/2024 11:06:38 02/27/2024 XR, chest, 2 view completed [address], [place], [address], 02/29/2024 11:06:50 Procedure Notes None recorded. Medical Equipment None Reported. Allergies Allergen ID Allergen Name Allergen Category Reaction Reaction Severity Criticality Documentation Date Start Date Code Code System Note Provider Name and Address Organization Details Recorded Time 169 cow milk allergeni c extract food,medi cation Not available Not available Not available 05/18/2022 63513 5 RxNorm Not Available [facility] 3 01:09:58 1694 codeine medicatio n Not available Not available Not available 05/18/2022 2670 RxNorm Other react ions and sever ities : 'Adve rse react ion to subst ance - Sever e'. Not Available [facility] 3 01:09:58 1695 acetamino phen medicatio n anaphylax is severe Not available 05/18/2022 161 RxNorm Per patie nt, this is a mista ke Not Available [facility] 3 01:09:58 13344 acetamino phen / hydrocodo ne medicatio n Not available Not available Not available 09/15/2022 30505 2 RxNorm Loyda Rocio, CONVERTING OPERATOR null, [place] - [facility] 3 11:18:00 Medications Name Sig Start Date Stop Date Status Note LastModified by Organization Details LastModified Time quetiapin e 25 mg tablet TAKE 1 TABLET BY MOUTH ONCE DAILY WITH 50 MG TABLETS active Not Available Not Available No t Available cyclobenz aprine 10 mg tablet 1/2 to 1 tab po tid prn active Not Available Not Available No t Available tretinoin 0.1 % topical cream APPLY TOPICALL Y TO THE AFFECTED AREA DAILY AT BEDTIME active Not Available Not Available No t Available amoxicill in 500 mg capsule TAKE 1 CAPSULE BY MOUTH EVERY 12 HOURS FOR 7 DAYS 12/24 completed Not Available Not Available Not Available [place] Thyroid 60 mg tablet Take by oral route for 30 days. 08/24 completed Not Available Not Available Not Available buspirone 5 mg tablet TAKE 1 TABLET BY MOUTH TWICE DAILY DIRECTED active Not Available Not Available No t Available silver sulfadiaz ine 1 % topical cream APPLY A 1/16 INCH THICK LAYER TOPICALL Y TO ENTIRE BURN AREA TWICE DAILY active Not Available Not Available No t Available metformin 500 mg tablet Take 1 tablet by oral route. 09/01 completed Not Available Not Available Not Available Proctosol HC 2.5 % rectal cream with applicato r INSERT 1 APPLICAT ORFUL RECTALLY TWICE A DAY active Not Available Not Available No t Available promethaz ine-DM 6.25 mg-15 mg/5 mL oral syrup TAKE 5 ML BY MOUTH EVERY 4 HOURS NEEDED 11/27 completed Not Available Not Available Not Available prednison e 10 mg tablet TAKE 1 TABLET BY MOUTH THREE TIMES DAILY FOR 3 DAYS AND THEN TAKE 1 TABLET BY MOUTH TWICE DAILY FOR 2 DAYS AND THEN TAKE 1 TABLET ONCE DAILY 12/24 completed Not Available Not Available Not Available doxycycli ne hyclate 100 mg capsule TAKE 1 CAPSULE BY MOUTH TWICE DAILY FOR 7 DAYS 04/11 completed Not Available Not Available Not Available haloperid ol 5 mg tablet active Not Available Not Available Not Available quetiapin e 300 mg tablet TAKE 1 TABLET BY MOUTH ONCE DAILY 09/04 completed Not Available Not Available Not Available citalopra m 40 mg tablet TAKE 1 TABLET BY MOUTH ONCE DAILY active Not Available Not Available No t Available trazodone 50 mg tablet TAKE 1 TABLET BY MOUTH IN THE EVENING NEEDED FOR INSOMNIA 09/04 completed Not Available Not Available Not Available polyethyl brian glycol 3350 17 gram oral powder packet MIX ONE PACKET IN LIQUID UTD AND DRINK ONCE D PRN 12/10 completed Not Available Not Available Not Available azithromy lizz 250 mg tablet TAKE 2 TABLETS BY MOUTH ON DAY 1, AND THEN TAKE 1 TABLET BY MOUTH ONCE A DAY ON DAY 2 THROUGH DAY 5 04/11 completed Not Available Not Available Not Available ibuprofen 800 mg tablet TAKE 1 TABLET BY MOUTH THREE TIMES DAILY NEEDED 09/01 completed Not Available Not Available Not Available fluconazo le 150 mg tablet TAKE 1 TABLET FOR ONE DOSE active Not Available Not Available No t Available benzonata te 200 mg capsule TAKE 1 CAPSULE BY MOUTH THREE TIMES DAILY NEEDED FOR COUGH 07/04 completed Not Available Not Available Not Available risperido ne 4 mg tablet TAKE 1 TABLET BY MOUTH TWICE DAILY DIRECTED active Not Available Not Available No t Available tolterodi ne ER 4 mg capsule,e xtended release 24 hr Take 1 capsule( s) EVERY DAY by oral route. 04/30 completed Not Available Not Available Not Available hydrocodo ne 5 mg-acetam inophen 325 mg tablet active Not Available Not Available Not Available ondansetr on HCl 8 mg tablet Take 1 tablet twice a day by oral route. 11/16 completed Not Available Not Available Not Available sucralfat e 1 gram tablet Take 1 tablet 4 times a day by oral route with meals for 30 days. 09/01 completed Not Available Not Available Not Available ondansetr on HCl 4 mg tablet TAKE 1 TABLET(S ) 3 TIMES A DAY BY ORAL ROUTE NEEDED. active Not Available Not Available No t Available famotidin e 40 mg tablet Take 1 tablet every day by oral route. 2024 active Not Available Not Available Not Avai lable prednison e 20 mg tablet TAKE 2 TABLETS BY MOUTH DAILY FOR 5 DAYS active Not Available Not Available No t Available Tubersol 5 tub. unit/0.1 mL intraderm al injection solution Inject 0.1 mL by intrader mal route. 04/17 completed pt gina well Not Available Not Available Not Available clonazepa m 0.5 mg tablet Take 1 tab tid 03/28 completed Not Available Not Available Not Available estradiol 0.05 mg/24 hr weekly transderm al patch APPLY 1 PATCH TOPICALL Y TO THE SKIN WEEKLY 04/17 completed Not Available Not Available Not Available quetiapin e 200 mg tablet TAKE 1 TABLET TWICE A DAY FOR 30 DAY(S) 07/22 completed Not Available Not Available Not Available olanzapin e 5 mg tablet TK 1 T PO QD IN THE MORNING 12/10 completed Not Available Not Available Not Available clonazepa m 1 mg tablet TAKE 1 2 (ONE HALF) TABLET BY MOUTH TWICE DAILY AND 1 IN THE EVENING active Not Available Not Available No t Available phentermi ne 15 mg capsule TAKE 1 CAPSULE BY MOUTH ONCE DAILY FOR 30 DAYS 11/16 completed Not Available Not Available Not Available clindamyc in HCl 150 mg capsule active Not Available Not Available Not Available hydroxyzi ne pamoate 50 mg capsule TAKE 1 CAPSULE BY MOUTH THREE TIMES DAILY NEEDED active Not Available Not Available No t Available olanzapin e 10 mg tablet TK 1 T PO QD HS 12/10 completed Not Available Not Available Not Available clotrimaz ole 1 % vaginal cream Insert 1 applicat orful every day by vaginal route at bedtime for 7 days. 09/11 completed Not Available Not Available Not Available topiramat e 25 mg tablet TAKE 1 TABLET BY MOUTH TWICE DAILY DIRECTED active Not Available Not Available No t Available metronida zole 500 mg tablet TAKE 1 TABLET BY MOUTH EVERY 8 HOURS FOR 7 DAYS NEEDED 11/27 completed Not Available Not Available Not Available hydroxyzi ne HCl 50 mg tablet TAKE 1 TABLET BY MOUTH IN THE EVENING NEEDED FOR INSOMNIA active Not Available Not Available No t Available nizatidin e 150 mg capsule TAKE 1 CAPSULE BY MOUTH TWICE DAILY 11/27 completed Not Available Not Available Not Available amlodipin e 5 mg tablet Take 1 tablet every day by oral route. active Not Available Not Available No t Available tretinoin 0.05 % topical cream APPLY CREAM TOPICALL Y TO AFFECTED AREA ONCE DAILY AT BEDTIME 09/01 completed Not Available Not Available Not Available divalproe x 500 mg tablet,de layed release active Not Available Not Available Not Available ciproflox acin 500 mg tablet TAKE 1 TABLET BY MOUTH EVERY 12 HOURS FOR 10 DAYS 11/16 completed Not Available Not Available Not Available sulfameth oxazole 800 mg-trimet hoprim 160 mg tablet TAKE 1 TABLET BY MOUTH EVERY 12 HOURS 09/01 completed Not Available Not Available Not Available omeprazol e 40 mg capsule,d elayed release TAKE 1 CAPSULE BY MOUTH TWICE DAILY active Not Available Not Available No t Available aspirin 81 mg tablet,de layed release Take 1 tablet every day by oral route. 05/27 completed Not Available Not Available Not Available doxycycli ne monohydra te 100 mg tablet TAKE 1 TABLET BY MOUTH TWICE DAILY FOR 7 DAYS 11/27 completed Not Available Not Available Not Available tramadol 50 mg tablet TK 1 T PO TID PRN 09/01 completed Not Available Not Available Not Available quetiapin e 100 mg tablet TAKE 1 TABLET BY MOUTH EVERY DAY IN THE MORNING active Not Available Not Available No t Available amitripty line 50 mg tablet TAKE 1 TABLET BY MOUTH ONCE DAILY AT BEDTIME 2024 active Not Available Not Available Not Avai lable risperido ne 3 mg tablet active Not Available Not Available Not Available amoxicill in 500 mg tablet Take 1 tablet every 12 hours by oral route for 7 days. 12/24 completed Not Available Not Available Not Available levothyro xine 25 mcg tablet Take 1 tablet every day by oral route. 07/22 completed Not Available Not Available Not Available baclofen 20 mg tablet TK 1 T PO TID PRN 12/10 completed Not Available Not Available Not Available ketorolac 10 mg tablet active Not Available Not Available Not Available levothyro xine 75 mcg tablet TAKE 1 TABLET BY MOUTH ONCE DAILY 11/27 completed Not Available Not Available Not Available prednison e 10 mg tablets in a dose pack Take 1 tab by mouth, 3 times a day for 3 daysTake 1 tab by mouth 2 times a day for 2 daysTake 1 tab by mouth once a day for 1 day 12/24 completed Not Available Not Available Not Available Dulcolax (bisacody l) 10 mg rectal supposito ry 1 supposit ory ME qday prn constipa tion 03/02 completed Not Available Not Available Not Available risperido ne 2 mg tablet TAKE 1 & 1 2 (ONE & ONE HALF) TABLETS BY MOUTH TWICE DAILY active Not Available Not Available No t Available meloxicam 7.5 mg tablet 1 po bid prn pain active Not Available Not Available No t Available prazosin 5 mg capsule TK 1 C PO QD HS 12/10 completed Not Available Not Available Not Available oxycodone -acetamin ophen 5 mg-325 mg tablet TK ONE TO TWO TS PO Q 4 H PRF PAIN 12/16 completed Not Available Not Available Not Available amoxicill in 875 mg tablet Take 1 tablet every 12 hours by oral route for 10 days. active Not Available Not Available No t Available amitripty line 25 mg tablet Take 25 mg by oral route. 06/23 completed Not Available Not Available Not Available temazepam 15 mg capsule TAKE 2 CAPSULES BY MOUTH AT BEDTIME active Not Available Not Available No t Available DOK 100 mg capsule TK 1 C PO BID PRN 12/10 completed Not Available Not Available Not Available tamsulosi n 0.4 mg capsule TK 1 C PO QD 07/22 completed Not Available Not Available Not Available trazodone 100 mg tablet 05/27 completed Not Available Not Available Not Available dicyclomi ne 20 mg tablet 03/02 completed Not Available Not Available Not Available temazepam 30 mg capsule TAKE 1 CAPSULE BY MOUTH EVERY DAY DIRECTED active Not Available Not Available No t Available Kenalog 10 mg/mL suspensio n for injection In office injectio n administ ered by the provider 12/24 completed [facility]: [phone] Not Available Not Available Not Available meclizine 25 mg tablet TAKE 1 TABLET BY MOUTH THREE TIMES DAILY NEEDED active Not Available Not Available No t Available lithium carbonate 300 mg capsule TAKE ONE CAPSULE BY MOUTH TWICE DAILY 11/27 completed Not Available Not Available Not Available benzonata te 100 mg capsule TAKE 1 CAPSULE BY MOUTH 2 TO 3 TIMES PER DAY NEEDED FOR COUGH 04/17 completed Not Available Not Available Not Available doxycycli ne monohydra te 100 mg capsule TAKE 1 CAPSULE BY MOUTH TWICE DAILY FOR 7 DAYS 07/04 completed Not Available Not Available Not Available levothyro xine 50 mcg tablet TAKE 1 TABLET BY MOUTH IN THE MORNING 11/27 completed Not Available Not Available Not Available cephalexi n 500 mg capsule Take 1 capsule every 12 hours by oral route for 7 days. active Not Available Not Available No t Available diphenhyd ramine 25 mg capsule active Not Available Not Available Not Available naproxen sodium 550 mg tablet Take 1 tablet twice a day by oral route with meals for 10 days. 03/08 completed Not Available Not Available Not Available trazodone 150 mg tablet TAKE 1 TABLET BY MOUTH IN THE EVENING NEEDED FOR INSOMNIA active Not Available Not Available No t Available diphenhyd ramine 25 mg tablet 1-2 tabs po q4-6 hours prn 05/27 completed Not Available Not Available Not Available benztropi ne 1 mg tablet TAKE 1 TABLET BY MOUTH TWICE A DAY active Not Available Not Available No t Available progester one micronize d 200 mg capsule TAKE 1 CAPSULE BY MOUTH EVERY DAY AT BEDTIME active Not Available Not Available No t Available hydrochlo rothiazid e 12.5 mg capsule Take 1 capsule every day by oral route. 08/25 completed Not Available Not Available Not Available Retin-A Micro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 maintain a once daily or every other day bowel habit. Tylenol or Motrin may be used as needed for cramping. High fiber diet with whole grains, fruits and veggies. Fiber supplement with Metamucil or Citracel. Increase water, fluid intake-Rec ommend at least 6-8 8oz glasses day. Avoid straining. Continue Linzess 290mcg daily as directed. Follow up as needed, or sooner if new symptoms develop. [id number] Rashi De Oliveira MD [facility] [address] [place] [address] 07/12/2022 15:17:31 07/13/2022 08:31:49 Dyspnea on exertion 49723639 R06.09 R05.9 T78.40XA D89.9 J18.9 [id number] Rashi De Oliveira MD [facility] Pulmonolo gy [place] [address] [facility] 15 [place] [address] 08/24/2022 14:24:21 08/24/2022 16:44:21 Bronchiectasis 00860278 J47.9 [id number] Kayla Tran MD [facility] Primary Care [facility] [address] [facility] [address] [place] [address] 08/31/2022 11:11:28 08/31/2022 11:41:56 [id number] BIBIANA Flores [facility] Primary Care [facility] [address] [facility] 140 [place] [address] 09/06/2022 11:37:16 09/06/2022 12:13:04 Hypothyroidism 11928813 E03.9 ChronicTSH 0.142, T4 0.68, T3 wnl (06/23/22); TSH 0.023 (08/31/22)P t thyroid still overactive . Advised to continue to hold thyroid meds.Will recheck labs in 6 weeks. Chronic id iopathic constipation 16606743 K59.04 Chronic, improved with Miralax, Linzess and otc colace.Rec ommend increasing oral fluids with non-caffei nated, non-alcoho lic beverages. Increase daily dietary fiber. May drink prune juice or pear juice to initiate bowel regularity and then decrease as needed to maintain a once daily or every other day bowel habit. Tylenol or Motrin may be used as needed for cramping. High fiber diet with whole grains, fruits and veggies. Fiber supplement with Metamucil or Citracel. Increase water, fluid intake-Rec ommend at least 6-8 8oz glasses day. Avoid straining. Continue Linzess 290mcg daily as directed. Follow up as needed, or sooner if new symptoms develop. Stricture of esophagus 10512420 K22.[address] scan.Recei milana call from Dr. De Oliveira (pulmonary ) on 08/24/22 with concerns about pts CT scan indicating that she has a fluid distended esophagus. He believes she may be aspirating the contents of the distention . He is concerned she may also have a stricture. Recommend pt see GI for repeat EGD; however, pt has not been seen by Dr. Gutierrez in over a year. Since we have moved to a new table space, referral was updated and pt has appt upcoming on 09/28/22. [id number] Pedro Gamez MD [facility] Ortho [place] [address] [facility] [address] [place] [address] 09/15/2022 11:01:36 09/15/2022 11:51:47 Pain of bilateral knee joints 4195184357 68477 M25.561 M25.562 Bilateral osteoarthritis of knees 8421350425 42761 M17.0 [id number] MARSHA James [facility] [place] [address] [facility] [address] [place] [address] 09/26/2022 10:15:54 09/26/2022 13:41:01 Pain of bilateral knee joints 6417647554 81663 M25.561 M25.562 Bilateral osteoarthritis of knees 0186482546 29899 M17.0 [id number] Kaity Gutierrez MD [facility] General Surgery [address] [address] 10/05/2022 11:51:29 10/05/2022 13:01:33 CT of chest abnormal 2744987264 1529983 R93.89 [id number] MARSHA James [facility] [place] [address] [facility] [address] [place] [address] 10/03/2022 10:34:24 10/03/2022 10:50:48 Bilateral osteoarthritis of knees 0585911730 81712 M17.0 Pain of bi lateral knee joints 2134214158 79538 M25.561 M25.562 [id number] Kayla Tran MD [facility] Primary Care [facility] [address] [facility] [address] [place] [address] 10/10/2022 09:30:28 10/10/2022 11:11:45 [id number] MARSHA James [facility] [place] [address] [place] [address] 10/10/2022 10:20:29 10/10/2022 11:08:20 Bilateral osteoarthritis of knees 4898360520 07275 M17.0 Pain of bi lateral knee joints 3344842456 11335 M25.561 M25.286 [id number] ELI Nieto [facility] Primary Care [facility] [address] [facility] [address] [place] [address] 11/14/2022 15:46:43 11/14/2022 17:34:20 Lesion of face 828256619 L98.9 Has used this medication in the past with positive results Obesity 271242021 E66.9 Encouraged fresh fruits and veggies-go odIncrease daily water intake-cur rently drinks a gallon/per dayEncoura ge 30 mins of daily exercise-+ Will give phentermin ef/u in 1 month Acute sinusitis 51628034 J01.90 for the last 5 days, green and odorous dischargeH as increased fluid intakeCaus ing a lot of discomfort when she tries to sleepAlrea dy uses flonase dailywill trial amox-clavf /u in 1 month Hypothyroidism 92400670 E03.9 tsh .015, pt currently takes 75 mcgWill decrease levothyrox ine to 50mcgReche ck thyroid in 3 months [id number] Kaity Gutierrez MD [facility] General Surgery [address] [facility] [place] [address] 11/23/2022 16:07:26 11/23/2022 16:34:50 Esophageal dysphagia 48065924 R13.19 [id number] ELI Nieto [facility] Primary Care [facility] [address] [facility] [address] [place] [address] 12/12/2022 15:53:37 12/12/2022 16:18:07 Lesion of face 988700659 L98.9 Has been using the tretinoin daily with positive resultsreq uests refill Obesity 673910399 E66.9 Decided against use of phentermin eplans to start a nondairy shake/meal BID, incorporat ing plenty of fresh fruits and veggiespla ns to exercise 30mins daily at homef/u in 3 months Hypothyroidism 23833302 E03.9 tsh .015, pt currently takes 75 mcgWill decrease levothyrox ine to 50mcgReche ck thyroid in 3 months Burn of skin 817709617 T 30.0 uses as needed [id number] ELI Nieto [facility] Primary Care [address] [place] [address] 03/22/2023 15:50:51 03/22/2023 16:32:59 Hypothyroidism 75290918 E03.9 -chronic, stable-con tinues to take 50mcg levothyrox ine daily-obta ining labs today Gastroesop hageal reflux disease 515400075 K21.9 -she is wanting to switch the omeprazole to dexilant d/t doing her own research-w ill trial dexilant and nizatidine -d/c famotidine and omeprazole [id number] ELI Nieto [facility] Primary Care [address] [place] [address] 04/21/2023 16:39:14 05/04/2023 12:52:41 Medication monitoring 790036138 Z51.81 lithium level discussed (0.5) Vertigo 280164532 R42 -continues to have dizziness daily-mecl izine refilled Hypothyroidism 26223567 E03.9 -appt scheduled for October 20-chroni c, stable-con tinues to take 50mcg levothyrox ine daily-obta ining labs today [id number] ELI Nieto [facility] Primary Care [address] [place] [address] 06/21/2023 15:44:03 06/21/2023 16:36:30 Viral gastroenteritis 805907541 A08.4 -new issue, recently treated with antibiotic 's for diarrhea, phlegm, achiness, fever-has been using nyquil with limited effect-gina rrhea has mainly resolved with use of immodium-e ncourage to increase fluids/lakia ctrolytes- trial metronidaz ole Pruritic rash 40984643 L 28.2 -newly developed rash to sugar arms, under thighs-has tried using otc products (aveno) and benedryl with some positive results noted-itch ing has resolved, rash continues- unable to pinpoint being exposed to any potential irritants- trial medrol dose nick-trial hydroxyzin e [id number] Kaity Gutierrez MD [facility] General Surgery [address] [place] [address] 12/06/2023 14:50:46 12/06/2023 15:53:09 Nausea and vomiting 90452198 R11.2 [id number] ELI Nieto [facility] Primary Care [address] [place] [address] 11/17/2023 14:15:23 11/17/2023 14:42:18 History of bariatric surgical procedure 754857862 Z98.84 Abnormal posture 2772525 2 R29.3 [id number] MARSHA James [facility] Orth[facility] [place] [address] [place] [address] 11/28/2023 14:39:37 11/28/2023 15:47:24 Bilateral osteoarthritis of knees 0893143440 77402 M17.0 Pain of bi lateral knee joints 5456879710 87254 M25.561 M25.790 [id number] MARSHA James [facility] Orth[facility] [place] [address] [place] [address] 12/05/2023 15:20:29 12/05/2023 16:18:15 Bilateral osteoarthritis of knees 9152069706 83334 M17.0 Pain of bi lateral knee joints 4912567956 55342 M25.561 M25.909 [id number] ELI Nieto [facility] Primary Care [facility] [address] [facility] [address] [place] [address] 12/08/2023 14:45:03 12/08/2023 15:14:27 Adult health examination 724622862 Z00.00 Encouraged fresh fruits and veggies-me d bothIncrea se daily water intake-jackson se to 1 gal/dayEnc ourage 30 mins of daily exercise-w alks with workColono scopy-not dueWell woman exams-thro [facility] gynLDCT-no t a smoker Tuberculos is screening 536035330 Z11.1 [id number] ELI Nieto [facility] Primary Care [facility] [address] [facility] [address] [facility] [place] [address] 12/11/2023 16:43:16 12/11/2023 16:59:24 [id number] MARSHA James [facility] Orth[facility] [place] [address] [place] [address] 12/12/2023 15:21:30 12/12/2023 15:37:02 Bilateral osteoarthritis of knees 8433139358 44542 M17.0 Pain of bi lateral knee joints 2212790286 14770 M25.561 M25.280 [id number] Luh Hdez APRN [facility] Primary Care [facility] [address] [facility] [address] [facility] [place] [address] 04/17/2024 15:47:00 04/17/2024 17:00:17 History of bariatric surgical procedure 845400638 Z98.84 Burn of skin 978993498 T 30.0 Dyspnea 830908713 R06.00 Pain in bi lateral legs 0268182006 6690079 M79.604 M79.605 Health Concerns Section Related Observation LastModified by Organization Detai ls LastModified Time None Recorded Concern Status LastModified by Organization Details LastModified Time None Recorded Advance Directives Directive N: Payers Encounter Date Sequence Insurance Name Policy Number Policy Gonzalez Covered Member ID Gonzalez Member ID Guarantor Name 12/06/2023 1 [place] [id number] Erika Kim [id number] Erika Kim 12/08/2023 1 [place] [id number] Erika Kim [id number] Erika Kim 12/11/2023 1 [place] [id number] Erika Kim [id number] Erika Kim 12/12/2023 1 [place] [id number] Erika Arriola Kim [id number] Erika Kim 04/17/2024 1 [place] [id number] Erika Kim [id number] Erika Kim Notes Date Note Type Note Provider Name and Address Organization Details Recorded Time 12/06/2023 text/html ERIKA WAS SE EN IN THE OFFICE TODAY FOR A F/U. PT HAS VOMITING . SHE IS S/P SLEEVE GASTRECTOMY. S/P EGD , THERE WAS STRICTURE /ULCER . SHE IS ON FAMOTIDINE /AMITRIPTYLLINE AND IS DOING WELL . REGLAN DID NOT WORK FOR HER . Kaity Gutierrez MD [address], [place], [address], [employer] 12/06/2023 16:02:01 12/08/2023 text/html pt is here for annual physical BIBIANA Nieto-Ian [address], [place], [address], [employer] 12/08/2023 15:18:55 12/12/2023 text/html patient returns for Euflexxa injection number 3 bilateral knees she brings her medication from the specialty pharmacy today. She is starting to get some good relief from the 1st 2 rounds of injections. Previous x-rays show severe right medial and patellofemoral articulation osteoarthritis. she has more moderate changes on the left knee. She comes in today for the last injection both knees. MARSHA James [address], [place], [address], [employer] 12/12/2023 16:31:28 04/17/2024 text/html Erika león ts today for 6 month follow up. She states that she is needing medication refills. She states that since she has been on some of her medications due to a head injury, she will be decreasing those medication with the assistance of [facility] RADAR SIGNAL PROCESSING ENGINEER. Luh Hdez, GREEN CHAIN MARKER [address] [facility] [facility] [address], [place], [address], [facility] 04/17/2024 16:25:31 OBGyn Episode No OBEpisode recorded.
--- OUTSIDE RECORDS SUMMARY | 2024-06-21 01:03 | XMS_ITS | Clinical Summary ---
Author Organization [facility] Address [address] [place] [address] Phone Care Team Providers Care Section Beamer Name Role Phone CADY AIKEN, TONYA Styles Primary Care Provider [phone] JOSE ENRIQUE AIKEN, KAT Martin Unavailable Reason [...] Renewed during this visit LASHAY GUZMAN on 02/26/2018 TraMADol HCl 50MG Oral Tablet Provider: LASHAY GUZMAN 30 day supply: 120 tablet, 0 refills Diagnosis: 1 every 6 hours as needed Pharmacy: Aaliyah otero [place] ([facility]) - [address] [place] [address], [phone] - Last Documented On 9 3:30PM By LASHAY GUZMAN ; [facility] Current Medications (continue as prescribed) TraMADol HCl 50MG Oral Tablet 04/04/2018 Provider: LASHAY GUZMAN Diagnosis: 1 po TID prn Last Documented On 9 3:38PM By LASHAY GUZMAN ; [facility] Citalopram Hydrobromide 40MG Oral Tablet 11/03/2017 Provider: Diagnosis: 1 in am Last Documented On 8 11:04AM By JEISON RAMIREZ ; [facility] ClonazePAM 1MG Oral Tablet 11/03/2017 Provider: Diagnosis: Last Documented On 8 11:04AM By JEISON RAMIREZ ; [facility] HydrOXYzine Pamoate 50MG Oral Capsule 11/03/2017 Pro vider: Diagnosis: Last Documented On 8 11:05AM By JEISON RAMIREZ ; [facility] MetFORMIN HCl ER 750MG Oral Tablet Extended Rele ase 24 Hour 11/03/2017 Provider: Diagnosis: Last Documented On 8 11:05AM By JEISON RAMIREZ ; [facility] Montelukast Sodium 10MG Oral Tablet 11/03/2017 Provi radha: Diagnosis: Last Documented On 8 11:06AM By JEISON RAMIREZ ; [facility] OLANZapine 10MG Oral Tablet 11/03/2017 Provider: Diagnosis: Last Documented On 8 11:06AM By JEISON RAMIREZ ; [facility] OLANZapine 5MG Oral Tablet 11/03/2017 Provider: Diagnosis: Last Documented On 8 11:06AM By JEISON RAMIREZ ; [facility] Prazosin HCl 5MG Oral Capsule 11/03/2017 Provider: Diagnosis: Last Documented On 8 11:22AM By JEISON RAMIREZ ; [facility] QUEtiapine Fumarate 400MG Oral Tablet 11/03/2017 Pro vider: Diagnosis: Last Documented On 8 11:22AM By JEISON RAMIREZ ; [facility] Ibuprofen 800MG Oral Tablet 11/03/2017 Provider: Diagnosis: Last Documented On 8 11:04AM By JEISON RAMIREZ ; [facility] [place] Thyroid 60MG Oral Tablet 11/03/2017 Provider: Diagnosis: Last Documented On 8 11:03AM By JEISON RAMIREZ ; [facility] Baclofen 20MG Oral Tablet 11/03/2017 Provider: Diagnosis: 1 TID Last Documented On 8 11:03AM By JEISON RAMIREZ ; [facility] Medications Administered Includes: Administered Medications from this encounter No Administered Medications Recorded Results Includes: Results discussed during this encounter No Results Recorded For Specified Dates History of Present Illness Includes: History of Present Illness from this encounter No History of Present Illness Recorded Social History Description Last Updated Not using drugs 11/03/2017 Last Documented On 8 9:42AM ; [facility] 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 Last Documented On 8 9:42AM ; [facility] Single 11/03/2017 Last Documented On 8 9:42AM ; [facility] Smoking status : Former smoker 8 Last Documented On 8 9:42AM ; [facility] Medical History Includes: Medical History addressed during this encounter Description Last Updated Hypothyroidism ~Vit D defici ency ~Hyperglycinemia ~Hypertriglyceridemia ~Obesity ~Schizoaffective disorder ~Otitis media, Bilateral ~Hemmorrhoids ~ Chronic Sinusitis ~Constipation ~Cyst of Ovary ~Leukorrhea ~Amenorrhea ~Acne ~Dysphagia ~Dysuria ~Polyuria ~Pelvic Mass ~Increased Liver function 11/03/2017 Last Documented On 8 9:42AM ; [facility] History of diabetes mellitus 11/03/2017 Last Documented On 8 9:42AM ; [facility] Surgery Tumor on Uterus 11/03/2017 Last Documented On 8 9:42AM ; [facility] History of hypertension 11/03/2017 Last Documented On 8 9:42AM ; [facility] Family History Includes: Family History addressed during this encounter Description Last Updated Family medical history was unknown 11/03 Last Documented On 8 9:42AM ; [facility] Review of Systems Includes: Review of [...] Active Last Documented On 8 8:33AM ; [facility] Encounters Encounter Provider Location Date Check-In Time Check-Out Time Diagnosis * PHONE CALL LASHAY [facility] 8 9:42AM 11:59PM Insurance Includes: Active Insurance Policies Plan Name Member ID Group # Subscriber Relationship Effect rhonda Dates 1 - [employer] [id number] STARLA SCOTT Self Clinical Notes Includes: Clinical Notes from this encounter No Clinical Notes Recorded
--- OUTSIDE RECORDS SUMMARY | 2024-06-21 01:03 | XMS_ITS | Continuity of Care Document ---
Author Organization [facility] Address [address] [place] [address] [address] [place] [address] Phone Care Team Providers Care Government Auditor Name Role Phone Muehl Jay WEST Unavailable Unavailable Advance Directives Directive Yes / No Effective Date File Name No Information Encounters Encounter Description Practice Location Reason(s) For Visit Diagnoses Date Provider Providers Copied on Encounter [facility], [address], [place], [place], [id number], [place] tel:[phone] [place] No Information 4 Muehl Jay. [address], [address], [place], [address], [place]. tel:[phone] Referring Provider: Gerber Sutherland, [address] [place] [address], [place], [address]. tel:[phone] Family History Family Member Type Diagnosis Age At Onset No Information Payers Payer name Insurance type Covered republican ID Authoriza tion(s) No Information Social History Type Description Quantity Date Captured Comments Sex Female Smoking Status No Information Chief Complaint And Reason For Visit No Information Reason For Referral Reason For Referral No Information History Of Present Illness Encounter Date Complaint History Of Prese nt Illness No Information Functional Status Date Functional Assessmen t No Information Instructions Date Instruction Additional Infor mation No Information Assessments Type Assessment Date No Information Patient Care Teams Name Effective Dates (start - stop) Status Members No Information
--- OUTSIDE RECORDS SUMMARY | 2024-06-21 01:03 | XMS_ITS ---
Care Plan - [facility] Created on: June 21, 2024 STARLA SCOTT : 1970 Sex: Female Author Organization [facility] Address [address] [place] [address] Phone Care Team Providers Care Dry Cell Battery Assembler Name Role Phone CADY AIKEN, TONYA Styles Primary Care Provider [phone] JOSE ENRIQUE AIKEN, KAT Martin [facility]
--- OUTSIDE RECORDS SUMMARY | 2024-06-21 01:03 | XMS_ITS | Clinical Summary ---
Author Organization [facility] Address [address] [place] [address] Phone Care Team Providers Care Handle Attacher Name Role Phone CADY AIKEN, TONYA Styles Primary Care Provider [phone] JOSE ENRIQUE AIKEN, KAT Martin Unavailable Reason for Visit and Chief Complaint The Chief Complaint is: 1 month fu Plan of Treatment No Plan of Treatment Recorded Assessments Includes: Assessments from this encounter Findings - Sacroiliitis [M46.1 - Sacroiliitis, not elsewhere classified] - Last Documented On 12/14/2017 8:57AM ; [facility] - Arthralgia of the right knee/patella/tibia/fibula [M25.561 - Pain in right knee] - Last Documented On 12/14/2017 8:57AM ; [facility] - Lumbago [M54.5 - Low back pain] - Last Documented On 12/14/2017 8:57AM ; [facility] - Myalgia [M79.1 - Myalgia] - Last Documented On 12/14/2017 8:57AM ; [facility] Medical Equipment - Implanted Devices Includes: Current Devices No Medical Equipment Recorded Medications Includes: Medications discussed during this encounter and other current Medications Current Medications (continue as prescribed) TraMADol HCl 50MG Oral Tablet 04/04/2018 Provider: LASHAY GUZMAN Diagnosis: 1 po TID prn Last Documented On 9 3:38PM By LASHAY GUZMAN ; [facility] Citalopram Hydrobromide 40MG Oral Tablet 11/03/2017 Provider: Diagnosis: 1 in am Last Documented On 8 11:04AM By JEISON RAMIREZ ; [facility] ClonazePAM 1MG Oral Tablet 11/03/2017 Provider: Diagnosis: Last Documented On 8 11:04AM By JEISON RAMIREZ ; [facility] HydrOXYzine Pamoate 50MG Oral Capsule 11/03/2017 Pro vider: Diagnosis: Last Documented On 8 11:05AM By JEISON RAMIREZ ; [facility] MetFORMIN HCl ER 750MG Oral Tablet Extended Rele ase 24 Hour 11/03/2017 Provider: Diagnosis: Last Documented On 8 11:05AM By JEISON RAMIREZ ; [facility] Montelukast Sodium 10MG Oral Tablet 11/03/2017 Provi radha: Diagnosis: Last Documented On 8 11:06AM By JEISON RAMIREZ ; [facility] OLANZapine 10MG Oral Tablet 11/03/2017 Provider: Diagnosis: Last Documented On 8 11:06AM By JEISON RAMIREZ ; [facility] OLANZapine 5MG Oral Tablet 11/03/2017 Provider: Diagnosis: Last Documented On 8 11:06AM By JEISON RAMIREZ ; [facility] Prazosin HCl 5MG Oral Capsule 11/03/2017 Provider: Diagnosis: Last Documented On 8 11:22AM By JEISON RAMIREZ ; [facility] QUEtiapine Fumarate 400MG Oral Tablet 11/03/2017 Pro vider: Diagnosis: Last Documented On 8 11:22AM By JEISON RAMIREZ ; [facility] Ibuprofen 800MG Oral Tablet 11/03/2017 Provider: Diagnosis: Last Documented On 8 11:04AM By JEISON RAMIREZ ; [email or web address]] [place] Thyroid 60MG Oral Tablet 11/03/2017 Provider: Diagnosis: Last Documented On 8 11:03AM By JEISON RAMIREZ ; [facility] Baclofen 20MG Oral Tablet 11/03/2017 Provider: Diagnosis: 1 TID Last Documented On 8 11:03AM By JEISON RAMIREZ ; [facility] [[email or web address]] Medications Administered Includes: Administered Medications from this encounter No Administered Medications Recorded Vital Signs Includes: Vital Signs from this encounter Vital Name 12/14/2017 08:34A Blood Pressure Sitting R 122/78 BP Cuff Size Large Pulse Rate-Sitting (bpm) 70 Pulse Rhythm Regular Respiration Rate (breaths/min) 16 Height (in) 66 Weight (lb) 272 Body Mass Index (kg/m2) 43.9 Body Surface Area (m2) 2.3 Pain Level 7 Last Documented: On 12/14/2017 8:36AM ; [facility] [[email or web address]] Results Includes: Results discussed during this encounter No Results Recorded For Specified Dates History of Present Illness Includes: History of Present Illness from this encounter JOSE MANUEL SCOTT is a 47 year old female. Patient presents in follow up for right knee and low back pain. Her knee surgery has been pushed off to March due to loss of insurance. She will not have coverage at the end of this month until March. She's not started therapy for the same reason. Tramadol is used 3-4 times per day with benefit. This was recently refilled by her PCP from an old refill that was left over. She knows to call the office for refills. - Medication list reviewed - Prescription Drug Monitoring Program website checked. - Last dose of medication? 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/03/2017 Last Documented On 8 8:32AM ; [facility] Single 11/03/2017 Last Documented On 8 8:32AM ; [facility] Smoking status : Former smoker 8 Last Documented On 8 8:32AM ; [facility] Medical History Includes: Medical History addressed during this encounter Description Last Updated Hypothyroidism ~Vit D defici ency ~Hyperglycinemia ~Hypertriglyceridemia ~Obesity ~Schizoaffective disorder ~Otitis media, Bilateral ~Hemmorrhoids ~ Chronic Sinusitis ~Constipation ~Cyst of Ovary ~Leukorrhea ~Amenorrhea ~Acne ~Dysphagia ~Dysuria ~Polyuria ~Pelvic Mass ~Increased Liver function 11/03/2017 Last Documented On 8 8:32AM ; [facility] History of diabetes mellitus 11/03/2017 Last Documented On 8 8:32AM ; [facility] Surgery Tumor on Uterus 11/03/2017 Last Documented On 8 8:32AM ; [facility] History of hypertension 11/03/2017 Last Documented On 8 8:32AM ; [facility] [[email or web address]] Family History Includes: Family History addressed during this encounter Description Last Updated Family medical history was unknown 11/03 Last Documented On 8 8:32AM ; [facility] [[email or web address]] Review of Systems Includes: Review of Systems from this encounter Systemic: No fever and no chills. Recent weight change. No recent weight change. Head: No headache. Cardiovascular: No chest pain or discomfort. Pulmonary: No dyspnea. Gastrointestinal: No nausea and no vomiting. Genitourinary: No dysuria. Hematologic: No tendency for easy bruising. Musculoskeletal: Lower back pain, right knee joint pain, and muscle aches. Neurological: No dizziness, no vertigo, no motor disturbances, and no sensory disturbances. Psychological: No anxiety, no depression, and no sleep apnea. Skin: No rash. Mental Status Includes: Mental Status from this encounter Description Oriented to time, place, and person No anxiety Functional Status Includes: Functional Status from this encounter No Functional Status Recorded Physical Exam Includes: Physical Exam from this encounter Allergies Includes: Active Allergies Substance Type Reaction Onset Date Resolved Date Statu s DAIRY Allergy 11/03/2017 Active Last Documented On 8 8:33AM ; [facility] [[email or web address]] Encounters Encounter Provider Location Date Check-In Time Check-Out Time Diagnosis PAIN MANAGEMENT FOLLOW UP [facility]- 12/15/19 18 8:30AM 8:56AM Sacroiliitis, Lumbago,Arthr algia - Knee / Patella / Tibia / Fibula Right,Myalgia Insurance Includes: Active Insurance Policies Plan Name Member ID Group # Subscriber Relationship Effect rhonda Dates 1 - [employer] [id number] STARLA SCOTT Self Clinical Notes Includes: Clinical Notes from this encounter No Clinical Notes Recorded
--- OUTSIDE RECORDS SUMMARY | 2024-06-21 01:04 | XMS_ITS | Clinical Summary ---
Author Organization [facility] Address [address] [place] [address] Phone Care Team Providers Care Lotteries Agent Name Role Phone Unavailable Primary Care Provider Unavailabl e Allergies Active Allergy Reactions Criticality Noted Date Comments Codeine Anaphylaxis 12/08/2022 Milk (Cow) Other (see Comments) 12/08/2022 All dairy products causes pustules in face Medications QUEtiapine Fumarate 400 MG Tablet Take 400 mg by mouth nightly. Take two tablets at night. Active QUEtiapine (SEROquel) 100 MG Tablet Take 100 mg by mouth every morning (before breakfast). Take one tablet every morning before breakfast Active norethindrone-e thinyl estradiol (ORTHO-NOVUM 1-35 TAB, NORTREL 1-35 TAB) 1-35 MG-MCG Tablet Take 1 Tablet by mouth every morning (before breakfast). Take one 25 mg tablet every morning before breakfast Active Social History Tobacco Use Types Packs/Day Years Used Date Smoking Tobacco: Never Assessed Comments Unknown Sex and Gender Information Value Date Recorded Sex Assigned at Not on file Legal Sex Female 7:27 PM CDT Gender Identity Not on file Sexual Orientation Not on file Plan of Treatment Not on file
--- OUTSIDE RECORDS SUMMARY | 2024-06-21 01:04 | XMS_ITS | CONTINUITY OF CARE DOCUMENT ---
Author Name omar nelson Address Unknown Organization [facility] Address [address] [place] [address] Phone [phone] Care Team Providers Care Grievance And Appeals Specialist Name Role Phone Rain Carrillo MD Unavailable STEFANO LAZAR MD Unavailable STEFANO LAZAR MD Unavailable INSURANCE PROVIDERS Payer name Policy type / Coverage type [place] red green party ID [facility] Commercial insurance co [facility] [id number]
--- OUTSIDE RECORDS SUMMARY | 2024-06-21 01:04 | XMS_ITS | Clinical Summary ---
Author Organization [facility] Facility Address [address] [place] [address] Care Team Providers Care Weight Loss Physician Name Role Phone Junie Cabrera PRODUCTION CONTROLLER Primary Care Provider [phone]- [phone] Encounters Date Type Department Care Team Description 06/11/2024 3:30 PM CDT Office Visit [facility], [facility] [address] [place] [address] [address] [place] [phone] John Yuan DO Stage 3 chronic kidney disease, not otherwise specified (HCC) (Primary Dx); Interstitial nephritis; Schizoaffective disorder, bipolar type (HCC); Gastroesophageal reflux disease; Osteoarthritis involving knee 05/30/2024 Orders Only [facility], [facility] [address] [place] [address] John Yuan DO from Last 3 Months Social History Tobacco Use Types Packs/Day Years Used Date Smoking Tobacco: Never Assessed Comments Unknown Sex and Gender Information Value Date Recorded Sex Assigned at Female 02/27/2024 10:35 AM EST Legal Sex Female 11:13 AM EDT Gender Identity Female 02/27/2024 10:35 AM EST Sexual Orientation Straight 02/27/2024 10 :35 AM EST Last Filed Vital Signs Vital Sign Reading Time Taken Comments Blood Pressure 142/84 06/11/2024 4:01 PM CDT Pulse 68 06/11/2024 4:01 PM CDT Temperature 36.7 C (98 F) 03/05/2024 2:21 PM INFECTION PREVENTION SPECIALIST Respiratory Rate 18 06/11/2024 4:01 PM CDT Oxygen Saturation 98% 06/11/2024 4:01 PM CDT Inhaled Oxygen Concentration - - Weight 104 kg (229 lb) 06/11/2024 4:01 PM CDT Height 170.2 cm (5' 7 ) 06/11/2024 4:01 PM CDT Body Mass Index 35.87 06/11/2024 4:01 PM CDT Plan of Treatment Upcoming Encounters Date Type Department Care Team (Late st Contact Info) Description 12/10/2024 1:30 PM CDT Office Visit [facility], [facility] [address] [facility] [address] [place] [address] John Yuan DO [address] [facility] [address] [place] [phone] Health Maintenance Due Date Last Done Comments Breast Cancer Screening 1970 Pneumococcal Vaccine: Pediat rics (0 to 5 Years) and At-Risk Patients (6 to 64 Years) (1 of 2 - PCV) 07/24/1977 Hepatitis B Vaccine (1 of 3 - 19+ 3-dose series) 07/24 Colorectal Cancer Screening: Annual FOBT 07/24/2020 Colorectal Cancer Screening: Colonoscopy 07/24/2020 Colorectal Cancer Screening: Sigmoidoscopy 07/24/2020 Diabetes: Ophthalmology Exam 12/22/2023 Diabetes: Pedal Pulse Checked 12/22/2023 Diabetes: Sensory Foot Exam 12/22/2023 Diabetes: Visual Foot Exam 12/22/2023 Diabetes: Hemoglobin A1C 08/30/2024 05/30/2024 Influenza Vaccine (Season Ended) 2024 Procedures Procedure Name Priority Date/Time Associated Diagnosis Comments HEPATITIS B SURFACE ANTIGEN (HC) Routine 05/30/2024 2:51 PM CDT HEMOGLOBIN A1C Routine 05/30/2024 2:51 PM CDT PROTEIN, URINE, RANDOM Routine 2:51 PM CDT CYSTATIN C WITH EGFR Routine 05/30/2024 2:51 PM CDT HEPATITIS C ANTIBODY Routine 05/30/2024 2:51 PM CDT HEPATITIS B SURFACE AB (QUAL) Routine 05/30/2024 2:51 PM CDT C-REACTIVE PROTEIN Routine 05/30/2024 2: 51 PM CDT C3 COMPLEMENT Routine 05/30/2024 2:51 PM CDT CBC (HC) Routine 05/30/2024 2:51 PM CDT SEDIMENTATION RATE, AUTOMATED Routine 05/30/2024 2:51 PM CDT URINALYSIS WITH MICROSCOPIC Routine 05/30/2024 2:51 PM CDT URINE ALBUMIN / CREATININE RATIO Routine 05/30/2024 2:51 PM CDT RENAL FUNCTION PANEL Routine 05/30/2024 2:51 PM CDT MAGNESIUM Routine 05/30/2024 2:51 PM CDT from Last 3 Months Results * Hepatitis B surface antigen (05/30/2024 2:51 PM CDT) HBSAG, Qn Monitor <0.05 IU/mL Se e order comments Comment: REFERENCE RANGE: <0.05 IU/mL The HBsAg Quantitative test should not be used to diagnose HBV infection. For HBV diagnosis, test code 498(X) Hepatitis B Surface Antigen with Reflex Confirmation and test code 501(X) Hepatitis B Core Antibody, Total are recommended. Quantitative HBsAg should be used to confirm ongoing hepatitis B virus (HBV) replication, evaluate prognosis in selected patients, and monitor response to antiviral treatment. For additional information, please refer to http://education.BuzzSpice/faq/MYI155 (This link is being provided for informational/ educational purposes only.) 05/30/2024 2:51 PM CDT 05/30/2024 2:59 PM CDT Narrative [facility] - 06/04/2024 1:41 PM CDT FASTING:NO FASTING: NO Resulting Agency Comment Performing Organization Information: Site ID: [id number] Name: [facility], Address: [address] [place] [phone] Director: Christa Delgado MD,PhD,JEISON John Yuan DO LAB BLOOD ORDERABLES Final R esult Performing Organization Address [facility] Co de Phone Number [facility] See order comments [place] [address] * Cystatin C w/GFR (05/30/2024 2:51 PM CDT) Cystatin C 1.09 0.52 - 1.17 mg/L See order comments eGFR 67 > OR = 60 mL/min/1.73 m2 See order comments 05/30/2024 2:51 PM CDT 05/30/2024 2:59 PM CDT Narrative [facility] - 06/04/2024 1:41 PM CDT FASTING:NO FASTING: NO Resulting Agency Comment Performing Organization Information: Site ID: [id number] Name: [email or web address] Address: [address] [place] [address] Director: Leyla Espinoza MD John Yuan DO LAB BLOOD ORDERABLES Final R esult Performing Organization Address [facility] Co de Phone Number [facility] See order comments [place] [address] * (ABNORMAL) Hepatitis B Surface Ab (Qual) (05/30/2024 2:51 PM CDT) Hepatitis B Surface Ab Qual REACTIVE(A ) NON-REACTI VE See order comments 05/30/2024 2:51 PM CDT 05/30/2024 2:59 PM CDT Narrative [facility] - 06/04/2024 1:41 PM CDT FASTING:NO FASTING: NO Resulting Agency Comment Performing Organization Information: Site ID: [place] Name: [email or web address] Address: [address] [address] Director: Leyla Espinoza MD us John Yuan DO LAB BLOOD ORDERABLES Final R esult [facility] See order comments [place] [address] * (ABNORMAL) CBC (05/30/2024 2:51 PM CDT) WBC 12.4(H) 3.8 - 10.8 Thousand/u L See order comments RBC 4.21 3.80 - 5.10 Million/uL See order comments Hemoglobin 12.6 11.7 - 15.5 g/dL See order comments Hematocrit 39.9 35.0 - 45.0 % See order comments MCV 94.8 80.0 - 100.0 fL See order comments MCH 29.9 27.0 - 33.0 pg See order comments MCHC 31.6(L) 32.0 - 36.0 g/dL See order comments Comment: For adults, a slight decrease in the calculated MCHC value (in the range of 30 to 32 g/dL) is most likely not clinically significant; however, it should be interpreted with caution in correlation with other red cell parameters and the patient's clinical condition. RDW 13.1 11.0 - 15.0 % See order comments Platelets 280 140 - 400 Thousand/u L See order comments MPV 10.8 7.5 - 12.5 fL See order comments 05/30/2024 2:51 PM CDT 05/30/2024 2:59 PM CDT Narrative [facility] - 06/04/2024 1:41 PM CDT FASTING:NO FASTING: NO Resulting Agency Comment Performing Organization Information: Site ID: [id number] Name: [email or web address] Address: [address] [address] Director: Leyla Espinoza us John Yuan DO LAB [id number] NSOLICITED RESULTS Final Result [facility] See order comments [place] [address] * Hepatitis C antibody (05/30/2024 2:51 PM CDT) Hepatitis C Antibody NON-REACTI VE NON-REACT HARRY See order comments Comment: HCV antibody was non-reactive. There is no laboratory evidence of HCV infection. In most cases, no further action is required. However, if recent HCV exposure is suspected, a test for HCV RNA (test code 79978) is suggested. For additional information please refer to http://education.BuzzSpice/faq/TVL78g3 (This link is being provided for informational/ educational purposes only.) 05/30/2024 2:51 PM CDT 05/30/2024 2:59 PM CDT Narrative [facility] - 06/04/2024 1:41 PM CDT FASTING:NO FASTING: NO Resulting Agency Comment Performing Organization Information: Site ID: [id number] Name: [email or web address] Address: [address] [place] [address] Director: Leyla Espinoza MD John Yuan DO LAB BLOOD ORDERABLES Final R esult [facility] See order comments [place] [address] * Urine Albumin / Creatinine Ratio (05/30/2024 2:51 PM CDT) Pathologist [facility] Creatinine, Ur 51 20 - 275 mg/dL See order comments Urine Microalbumin <0.2 See Note: mg/dL See order comments Comment: Reference Range: Reference Range Not established Microalb/Creat Ratio NOTE <30 mg/g creat See order comments Comment: NOTE: The urine albumin value is less than 0.2 mg/dL therefore we are unable to calculate excretion and/or creatinine ratio. The ADA defines abnormalities in albumin excretion as follows: Albuminuria Category Result (mg/g creatinine) Normal to Mildly increased <30 Moderately increased 30-299 Severely increased > OR = 300 The ADA recommends that at least two of three specimens collected within a 3-6 month period be abnormal before considering a patient to be within a diagnostic category. 05/30/2024 2:51 PM CDT 05/30/2024 2:59 PM CDT Narrative [facility] - 06/04/2024 1:41 PM CDT FASTING:NO FASTING: NO Resulting Agency Comment Performing Organization Information: Site ID: [id number] Name: [email or web address] Address: [address] [place] [id number] Director: Leyla Espinoza MD John Yuan DO LAB URINE ORDERABLES Final R esult Performing Organization Address [facility] Phone Number [facility] See order comments [place] [address] * (ABNORMAL) Protein, urine, random (05/30/2024 2:51 PM CDT) Protein Urine Random 4(L) 5 - 24 mg/dL See order comments 05/30/2024 2:51 PM CDT 05/30/2024 2:59 PM CDT Narrative [facility] - 06/04/2024 1:41 PM CDT FASTING:NO FASTING: NO Resulting Agency Comment Performing Organization Information: Site ID: [place] Name: [email or web address] Address: [address] [place] [phone] Director: Leyla Espinoza MD John Yuan DO LAB URINE ORDERABLES Final R esult Performing Organization Address [facility] Phone Number [facility] See order comments [place] [address] * (ABNORMAL) Urinalysis with microscopic (05/30/2024 2:51 PM CDT) Color, Urine YELLOW YELLOW See ord er comments Appearance Urine CLEAR CLEAR See order comments Specific [place], UA 1.011 1.001 - 1.035 See order comments pH Urine 6.5 5.0 - 8.0 See order comments Glucose, Ur NEGATIVE NEGATIVE See orde r comments Bilirubin, Urine NEGATIVE NEGATIVE See order comments Ketones, Urine NEGATIVE NEGATIVE See o rder comments Hemoglobin Ur Ql Strip NEGATIVE NEGATIVE See order comments Protein, Ur NEGATIVE NEGATIVE See orde r comments Nitrite, Urine NEGATIVE NEGATIVE See o rder comments WBC Esterase Urine NEGATIVE NEGATIVE See order comments WBC, Urine 0-5 < OR = 5 /HPF See order comments RBC, Urine NONE SEEN < OR = 2 /HPF See order comments Epithelial Cells in Urine 0-5 < OR = 5 /HPF See order comments Trans Epithelial, Urine CANCELED < OR = 5 /HPF See order comments Comment:Result canceled by t he ancillary. Renal Epithelial Cells, Urine CANCELED < OR = 3 /HPF See order comments Comment:Result canceled by t he ancillary. Bacteria FEW(A) NONE SEEN /HPF See order comments Calcium Oxalate Crystals, Urine CANCELED NONE OR FEW /HPF See order comments Comment:Result canceled by t he ancillary. Triple Phosphate Crystals, Urine CANCELED NONE OR FEW /HPF See order comments Comment:Result canceled by t he ancillary. Uric Acid Crystals, Urine CANCELED NONE OR FEW /HPF See order comments Comment:Result canceled by t he ancillary. Amorphous Sediments CANCELED NONE OR FEW /HPF See order comments Comment:Result canceled by t he ancillary. Crystals CANCELED NONE SEEN /HPF See order comments Comment:Result canceled by t he ancillary. Hyaline Casts, Urine NONE SEEN NONE SEEN /LPF See order comments Granular Casts, Urine CANCELED NONE SEEN /LPF See order comments Comment:Result canceled by t he ancillary. Casts CANCELED NONE SEEN /LPF See order comments Comment:Result canceled by t he ancillary. Yeast, UA CANCELED NONE SEEN /HPF See order comments Comment:Result canceled by t he ancillary. Note: See order comments Comment: This urine was analyzed for the presence of WBC, RBC, bacteria, casts, and other formed elements. Only those elements seen were reported. 05/30/2024 2:51 PM CDT 05/30/2024 2:59 PM CDT Narrative [facility] - 06/04/2024 1:41 PM CDT FASTING:NO FASTING: NO Resulting Agency Comment Performing Organization Information: Site ID: [place] Name: [email or web address] Address: [facility] [address] [address] Director: Leyla Espinoza MD us John J Yuan DO LAB URINE ORDERABLES Final R esult Performing Organization Address [facility]/ZIP Co de Phone Number [facility] See order comments [place] [address] * Sedimentation Rate (05/30/2024 2:51 PM CDT) Sed Rate 11 < OR = 30 mm/h See order comments 05/30/2024 2:51 PM CDT 05/30/2024 2:59 PM CDT Narrative [facility] - 06/04/2024 1:41 PM CDT FASTING:NO FASTING: NO Resulting Agency Comment Performing Organization Information: Site ID: Name: [email or web address] Address: [address] [place] [address] Director: Leyla Espinoza John Yuan DO LAB BLOOD ORDERABLES Final R esult Performing Organization Address [facility]/[place] de Phone Number [facility] See order comments [place] [address] * C3 Complement (05/30/2024 2:51 PM CDT) Complement Component C3C 121 83 - 193 mg/dL See order comments 05/30/2024 2:51 PM CDT 05/30/2024 2:59 PM CDT Narrative [facility] - 06/04/2024 1:41 PM CDT FASTING:NO FASTING: NO Resulting Agency Comment Performing Organization Information: Site ID: [place] Name: [email or web address] Address: [address] [address] [place] [address] Director: Leyla Espinoza MD John Yuan DO LAB BLOOD ORDERABLES Final R esult Performing Organization Address [facility] Co de Phone Number [facility] See order comments [place] [address] * (ABNORMAL) C-Reactive Protein (05/30/2024 2:51 PM CDT) CRP 12.7(H) <8.0 mg/L See order comments 05/30/2024 2:51 PM CDT 05/30/2024 2:59 PM CDT Narrative [facility] - 06/04/2024 1:41 PM CDT FASTING:NO FASTING: NO Resulting Agency Comment Performing Organization Information: Site ID: [place] Name: [email or web address] Address: [address] [place] [address] Director: Leyla Espinoza John Yuan DO LAB BLOOD ORDERABLES Final R esult Performing Organization Address [facility] Co de Phone Number [facility] See order comments [place] [address] * Magnesium (05/30/2024 2:51 PM CDT) Pathologist [facility] Magnesium 2.1 1.5 - 2.5 mg/dL See order comments 05/30/2024 2:51 PM CDT 05/30/2024 2:59 PM CDT Narrative [facility] - 06/04/2024 1:41 PM CDT FASTING:NO FASTING: NO Resulting Agency Comment Performing Organization Information: Site ID: [place] Name: [email or web address] Address: [address] [place] [address] Director: Leyla Espinoza John Yuan DO LAB BLOOD ORDERABLES Final R esult Performing Organization Address [facility] Phone Number [facility] [address] See order comments [place] [address] * Hemoglobin A1c (05/30/2024 2:51 PM CDT) Hemoglobin A1C 5.4 <5.7 % of total Hgb See order comments Comment: For the purpose of screening for the presence of diabetes: <5.7% Consistent with the absence of diabetes 5.7-6.4% Consistent with increased risk for diabetes (prediabetes) > or =6.5% Consistent with diabetes This assay result is consistent with a decreased risk of diabetes. Currently, no consensus exists regarding use of hemoglobin A1c for diagnosis of diabetes in children. According to [place] [employer] Association (ADA) guidelines, hemoglobin A1c <7.0% represents optimal control in non- diabetic patients. Different metrics may apply to specific patient populations. Standards of Medical Care in Diabetes(ADA). 05/30/2024 2:51 PM CDT 05/30/2024 2:59 PM CDT Narrative [facility] - 06/04/2024 1:41 PM CDT FASTING:NO FASTING: NO Resulting Agency Comment Performing Organization Information: Site ID: Name: [facility] Address: [address] [address] Director: Leyla Espinoza us John Yuan DO LAB BLOOD ORDERABLES Final R esult [facility] See order comments [place] [address] * (ABNORMAL) Renal Function Panel (05/30/2024 2:51 PM CDT) Glucose 93 65 - 139 mg/dL See order comments Comment: Non-fasting reference interval BUN 14 7 - 25 mg/dL See order comments Creatinine 1.27(H) 0.50 - 1.03 mg/dL See order comments eGFR CKD-EPI CR 2020 51(L) > OR = 60 mL/min/1.7 3m2 See order comments BUN/Creatinine Ratio 11 6 - 22 (calc) See order comments Sodium 139 135 - 146 mmol/L See order comments Potassium 4.1 3.5 - 5.3 mmol/L See order comments Chloride 107 98 - 110 mmol/L See order comments Bicarbonate (CO2) 27 20 - 32 mmol/L See order comments Calcium 9.5 8.6 - 10.4 mg/dL See order comments Phosphorus 4.7(H) 2.5 - 4.5 mg/dL See order comments Albumin 4.1 3.6 - 5.1 g/dL See order comments 05/30/2024 2:51 PM CDT 05/30/2024 2:59 PM CDT Narrative [facility] - 06/04/2024 1:41 PM CDT FASTING:NO FASTING: NO Resulting Agency Comment Performing Organization Information: Site ID: [place] Name: [facility] Address: [address] [address] Director: Leyla Espinoza us John Yuan DO LAB BLOOD ORDERABLES Final R esult [facility] See order comments [place] [address] from Last 3 Months Insurance [facility] Care Teams Weight Loss Physician Relationship Specialty Start Date End Date Junie Cabrera FNP [address] [place] [phone] PCP - General Psychiatry 03/05/24
[2024-06-21 11:05] VITALS: BP 152/93; PULSE 70; RESP 18; TEMP 36.6; O2SAT 98; BMI 36.4
[2024-06-21] MEDS: LACTATED RINGERS 1,000 ML 150 ML IV CONT (11:24)
--- NOTE | 2024-06-21 12:09 | WPDANESEPPF ---
Anes - Initial Pre Proc Eval Procedure: Operation Date: 06/21/24 13:00 Proposed Procedures p Esophagogastroduodenoscopy - Oscar Watters MD Date/Time: 06/21/24 12:09 Surgeon: Oscar Watters MD Pre Op Diagnosis: GERD,Nausea Patient Data Age: 53 Gender: F Height: 1.68 m Weight: 102.5 kg Last Vital Signs Temp 97.9 F 06/21/24 11:05 Pulse 70 06/21/24 11:05 Resp 18 06/21/24 11:05 BP 152/93 H 06/21/24 11:05 Pulse Ox 98 06/21/24 11:05 O2 Del Method Room Air 06/21/24 11:05 Allergies Allergy/AdvReac Type Severity Reaction Status Date / Time ascorbic acid (From Sambucus Allergy Severe Anaphylaxis Verified 06/21/24 11:01 Elderberry Immune) Echinacea angustifolia root, Allergy Severe Anaphylaxis Verified 06/21/24 11:01 rhizome extract (From Sambucus Elderberry Immune) Echinacea purpurea extract Allergy Severe Anaphylaxis Verified 06/21/24 11:01 (From [place]ambucus Elderberry Immune) elderberry fruit (From Allergy Severe Anaphylaxis Verified 06/21/24 11:01 Sambucus Elderberry Immune) hydrocodone Allergy Severe ANAPHYLAXIS Verified 06/21/24 11:01 propolis (bee glue) (From Allergy Severe Anaphylaxis Verified 06/21/24 11:01 Sambucus Elderberry Immune) zinc (From [place]us Allergy Severe Anaphylaxis Verified 06/21/24 11:01 Elderberry Immune) codeine Allergy Unknown Other Verified 06/21/24 11:01 ibuprofen AdvReac Unknown Other Verified 06/21/24 11:01 Dairy Allergy Severe RASH/INTESTINE Uncoded 06/21/24 11:01 INFECTION Home Medications ?Medication ?Instructions ?Recorded ?Confirmed ?Type hydroxyzine HCl 50 mg tablet 50 mg PO TID 10/28/19 06/21/24 History amitriptyline 50 mg tablet 50 mg PO DAILY 01/13/22 06/21/24 History linaclotide 290 mcg capsule 290 mcg PO DAILY 01/13/22 06/21/24 History (Linzess) buspirone 5 mg tablet 5 mg PO DAILY 05/13/22 06/21/24 History deutetrabenazine 12 mg tablet 12 mg PO BID 05/13/22 06/21/24 History (Austedo) lithium carbonate 300 mg tablet 300 mg PO DAILY 05/13/22 06/21/24 History temazepam 30 mg capsule 30 mg PO DAILY 05/13/22 06/21/24 History biotin 10,000 mcg capsule 70,000 mcg PO DAILY 10/19/23 06/21/24 History estradiol 0.5 mg tablet 0.5 mg PO DAILY #90 tabs 12/11/23 06/21/24 Rx progesterone micronized 200 mg 200 mg PO QHS #90 caps 12/11/23 06/21/24 Rx capsule albuterol sulfate 90 mcg/actuation 2 puff inhalation QID PRN 02/03/24 06/17/24 Rx aerosol inhaler (Ventolin HFA) shortness of breath or wheezing #8.5 grams calcium carbonate 1,000 1 tablet PO QID PRN indigestion 02/27/24 06/21/24 Rx mg-simethicone 60 mg chewable #30 tabs tablet (Maalox Advanced) famotidine 20 mg tablet (Pepcid) 20 mg PO BID 10 days #20 tabs 02/27/24 06/21/24 Rx omeprazole 40 mg capsule,delayed 40 mg PO BID 06/17/24 06/21/24 History release Patient hx anesthesia problems: none Family hx anesthesia problems: none Results Review: All pre-operative results and documents have been reviewed as part of the pre-operative evaluation. [facility] Past Medical History Medical History Colon cancer screening Nausea and vomiting in adult GERD (gastroesophageal reflux disease) Dysuria Insomnia Uterine fibroid Perimenopause Obesity Surgical History Surgical History H/O gastric sleeve History of gynecologic surgery 3 yrs ago 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 Personal hx of gastric bypass Social History Social History Smoking status: Never smoker Alcohol intake: current Alcohol use details: 2 per month Substance use: never Substance use type: does not use Lack of Transportation: No Lack of Food: Never True Current Housing: I Have Housing Concerned About Future Housing: No Difficulty Paying Gas/Electric Bills: No Difficulty Paying for Meds: No Currently Unemployed: No Education: Master's Degree or Higher Difficulty w/ Childcare or Family Care: No Living arrangements: alone Occupation/Education: occupation Gender identity (if verbalized by the patient): Female Spiritual care concerns: No Anes - Eval Final PreProcedure Day of Procedure 06/21/24 12:09 Patient weight: obese Lungs: normal air movement Airway: Mallampati scale and special considerations (Small chips noted to upper incisors. ) Neurological: alert and oriented Last oral intake: >/= 8 hours ASA classification: II Emergent: no Anesthetic plan: proceed Anesthesia type and monitoring: general GIVS and standard monitoring Results Review: All pre-operative results and documents have been reviewed as part of the pre-operative evaluation. GERD. Informed Consent: The patient's anesthetic plan and its attendant risks and benefits were discussed with the patient/family/POA. Questions were solicited and answers provided to the satisfaction of the patient/family/POA.
--- NOTE | 2024-06-21 12:38 | P.HP_ITS ---
History of Present Illness History of Present Illness Consent: Risks, benefits, and alternatives have been discussed and questions answered. Patient agrees to proceed with procedure. Chief complaint: GERD,Nausea Narrative: Erika Kim is a 53 year old female here for egd, h/o gastric sleeve in [place] and has been having n/v since Review of Systems Review of Systems: All systems reviewed & are unremarkable except as noted in HPI and below PMFSH Past Medical History Medical History Colon cancer screening Nausea and vomiting in adult GERD (gastroesophageal reflux disease) Dysuria Insomnia Uterine fibroid Perimenopause Obesity Surgical History Surgical History H/O gastric sleeve History of gynecologic surgery 3 yrs ago 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 Personal hx of gastric bypass Social History Social History Smoking status: Never smoker Alcohol intake: current Alcohol use details: 2 per month Substance use: never Substance use type: does not use Lack of Transportation: No Lack of Food: Never True Current Housing: I Have Housing Concerned About Future Housing: No Difficulty Paying Gas/Electric Bills: No Difficulty Paying for Meds: No Currently Unemployed: No Education: Master's Degree or Higher Difficulty w/ Childcare or Family Care: No Living arrangements: alone Occupation/Education: occupation Gender identity (if verbalized by the patient): Female Spiritual care concerns: No Meds Home Medications and Allergies Home Medications ?Medication ?Instructions ?Recorded ?Confirmed ?Type hydroxyzine HCl 50 mg tablet 50 mg PO TID 10/28/19 06/21/24 History amitriptyline 50 mg tablet 50 mg PO DAILY 01/13/22 06/21/24 History linaclotide 290 mcg capsule 290 mcg PO DAILY 01/13/22 06/21/24 History (Linzess) buspirone 5 mg tablet 5 mg PO DAILY 05/13/22 06/21/24 History deutetrabenazine 12 mg tablet 12 mg PO BID 05/13/22 06/21/24 History (Austedo) lithium carbonate 300 mg tablet 300 mg PO DAILY 05/13/22 06/21/24 History temazepam 30 mg capsule 30 mg PO DAILY 05/13/22 06/21/24 History biotin 10,000 mcg capsule 70,000 mcg PO DAILY 10/19/23 06/21/24 History estradiol 0.5 mg tablet 0.5 mg PO DAILY #90 tabs 12/11/23 06/21/24 Rx progesterone micronized 200 mg 200 mg PO QHS #90 caps 12/11/23 06/21/24 Rx capsule albuterol sulfate 90 mcg/actuation 2 puff inhalation QID PRN 02/03/24 06/17/24 Rx aerosol inhaler (Ventolin HFA) shortness of breath or wheezing #8.5 grams calcium carbonate 1,000 1 tablet PO QID PRN indigestion 02/27/24 06/21/24 Rx mg-simethicone 60 mg chewable #30 tabs tablet (Maalox Advanced) famotidine 20 mg tablet (Pepcid) 20 mg PO BID 10 days #20 tabs 02/27/24 06/21/24 Rx omeprazole 40 mg capsule,delayed 40 mg PO BID 06/17/24 06/21/24 History release Allergies Allergy/AdvReac Type Severity Reaction Status Date / Time ascorbic acid (From Sambucus Allergy Severe Anaphylaxis Verified 06/21/24 11:01 Elderberry Immune) Echinacea angustifolia root, Allergy Severe Anaphylaxis Verified 06/21/24 11:01 rhizome extract (From Sambucus Elderberry Immune) Echinacea purpurea extract Allergy Severe Anaphylaxis Verified 06/21/24 11:01 (From Sambucus Elderberry Immune) elderberry fruit (From Allergy Severe Anaphylaxis Verified 06/21/24 11:01 Sambucus Elderberry Immune) hydrocodone Allergy Severe ANAPHYLAXIS Verified 06/21/24 11:01 propolis (bee glue) (From Allergy Severe Anaphylaxis Verified 06/21/24 11:01 Sambucus Elderberry Immune) zinc (From Sambucus Allergy Severe Anaphylaxis Verified 06/21/24 11:01 Elderberry Immune) codeine Allergy Unknown Other Verified 06/21/24 11:01 ibuprofen AdvReac Unknown Other Verified 06/21/24 11:01 Dairy Allergy Severe RASH/INTESTINE Uncoded 06/21/24 11:01 INFECTION Vital Signs Vital Signs - 24 hr 06/21/24 11:05 Temperature 97.9 F Pulse Rate 70 Respiratory Rate 18 Blood Pressure 152/93 H Pulse Oximetry 98 Oxygen Delivery Room Air Exam Const: General: comfortable and no acute distress HENMT: Face/Nose/Sinus: Normal nares present Eyes: General: appearance normal, both eyes and all related structures Neck: Neck: no JVD Resp: Auscultation: clear to auscultation bilaterally Cardio: Rate: regular rate Rhythm: regular rhythm GI: Inspection: non-distended GI Palp: Yes Soft to palpation Skin: General skin exam: normal color Neuro: General: gait normal Speech: normal speech Extrem: General: normal to inspection Psych: Mental Status: mental status grossly normal Assessment and Plan Assessment and plan (1) Nausea and vomiting in adult: Code(s): R11.2 - Nausea with vomiting, unspecified Status: Acute Assessment and Plan: egd with bx (2) H/O gastric sleeve: Code(s): Z90.3 - Acquired absence of stomach [part of] Status: Acute
[2024-06-21 13:01] VITALS: BP 150/91; PULSE 76; RESP 25; O2SAT 100
[2024-06-21 13:11] VITALS: BP 158/90; PULSE 73; RESP 24; O2SAT 100
[2024-06-21 13:21] VITALS: BP 185/107; PULSE 70; RESP 22; O2SAT 100
[2024-06-21] MEDS: hydrALAZINE HCL 20 MG/ML VIAL 5 MG IV PUSH (13:30)
--- NOTE | 2024-06-21 13:34 | SUR.PHASEII ---
Called Dr. Tay regarding post-op BP 185/107. Per MD give 5mg IV hydralazine once.
[2024-06-21 13:45] VITALS: BP 155/89; PULSE 68; RESP 13; O2SAT 100
== END 2024-06-21 13:57 | disposition home or self-care (01) ==
PROVIDERS: Referring Provider Internal Medicine Gastroenterology; Visit Provider Internal Medicine Gastroenterology
PROC: 0DJ08ZZ Inspection of Upper Intestinal Tract, Via Natural or Artificial Opening Endoscopic (ICD-10-PCS; CPT 43245; principal; 2024-06-21 13:00)
DX: K31.2 Hourglass stricture and stenosis of stomach (principal); R11.2 Nausea with vomiting, unspecified; Z98.84 Bariatric surgery status; K21.9 Gastro-esophageal reflux disease without esophagitis; E66.9 Obesity, unspecified; Z68.36 Body mass index [BMI] 36.0-36.9, adult
CPT/HCPCS: 43245; 43239; 88305; C1726; J0360; J2003; J2704; J7120

== ENCOUNTER 2024-08-21 14:40 | Emergency (ER) | payer BC, SELFPAY ==
[2024-08-21 14:47] VITALS: BP 138/79; PULSE 85; RESP 16; TEMP 36.7; O2SAT 99
--- NOTE | 2024-08-21 15:07 | ED_ITS ---
HPI - URI/Sore Throat General Chief Complaint: Upper Respiratory Infection Stated Complaint: sinus congestion Time Seen by Provider: 08/21/24 14:41 Source: patient Mode of arrival: ambulatory Limitations: no limitations History of Present Illness HPI Narrative: patient is a 54-year-old female presenting with complaint of upper respiratory infection. Symptoms reported include nasal congestion, productive cough, postnasal drip, body aches. Symptoms began approximately 1 week ago. Denies any known direct sick contacts however, she is a social media community manager. States she was evaluated via telehealth yesterday, prescribed Medrol Dosepak. Patient states that she did not picker / packer the Medrol Dosepak from the pharmacy as she believe she needs an antibiotic. She denies any worsening symptoms. She denies any new fevers. No treatment initiated prior to arrival. No additional complaints. Related Data Home Medications ?Medication ?Instructions ?Recorded ?Confirmed ?Last Taken ?Type hydroxyzine HCl 50 mg tablet 50 mg PO TID 10/28/19 06/21/24 06/21/24 History amitriptyline 50 mg tablet 50 mg PO DAILY 01/13/22 06/21/24 06/20/24 History linaclotide 290 mcg capsule 290 mcg PO DAILY 01/13/22 06/21/24 06/20/24 History (Linzess) buspirone 5 mg tablet 5 mg PO DAILY 05/13/22 06/21/24 06/20/24 History deutetrabenazine 12 mg tablet 12 mg PO BID 05/13/22 06/21/24 06/20/24 History (Austedo) lithium carbonate 300 mg tablet 300 mg PO DAILY 05/13/22 06/21/24 06/20/24 History temazepam 30 mg capsule 30 mg PO DAILY 05/13/22 06/21/24 06/20/24 History biotin 10,000 mcg capsule 70,000 mcg PO DAILY 10/19/23 06/21/24 06/20/24 History omeprazole 40 mg capsule,delayed 40 mg PO BID 06/17/24 06/21/24 06/20/24 History release meclizine 25 mg tablet mg 08/21/24 Unknown History methylprednisolone 4 mg tablets in mg 08/21/24 Unknown History a dose pack quetiapine 100 mg tablet mg 08/21/24 Unknown History risperidone 4 mg tablet mg 08/21/24 Unknown History topiramate 25 mg tablet mg 08/21/24 Unknown History Allergies Allergy/AdvReac Type Severity Reaction Status Date / Time ascorbic acid (From Sambucus Allergy Severe Anaphylaxis Verified 08/21/24 14:58 Elderberry Immune) Echinacea angustifolia root, Allergy Severe Anaphylaxis Verified 08/21/24 14:58 rhizome extract (From Shelly Elderberry Immune) Echinacea purpurea extract Allergy Severe Anaphylaxis Verified 08/21/24 14:58 (From Celiacus Elderberry Immune) elderberry fruit (From Allergy Severe Anaphylaxis Verified 08/21/24 14:58 Sambucus Elderberry Immune) hydrocodone Allergy Severe ANAPHYLAXIS Verified 08/21/24 14:58 propolis (bee glue) (From Allergy Severe Anaphylaxis Verified 08/21/24 14:58 Sambucus Elderberry Immune) zinc (From Sambucus Allergy Severe Anaphylaxis Verified 08/21/24 14:58 Elderberry Immune) codeine Allergy Unknown Anaphylaxis Verified 08/21/24 14:58 ibuprofen AdvReac Unknown GI upset Verified 08/21/24 14:58 Dairy Allergy Severe RASH/INTESTINE Uncoded 08/21/24 14:58 INFECTION Review of Systems Review of Systems: CONSTITUTIONAL: Denies fever, chills, or sweats. EYES: Denies visual changes, redness, or discharge. ENT: Reports rhinorrhea, congestion, denies sore throat, or otalgia. CARDIOVASCULAR: Denies chest pain, palpitations, or edema. RESPIRATORY: reports cough denies dyspnea. GASTROINTESTINAL: Denies abdominal pain, nausea, vomiting, or diarrhea. GENITOURINARY: Denies dysuria or hematuria. SKIN: Denies rash, itching, or wounds. MUSCULOSKELETAL: Denies back pain, joint pain, or myalgia. NEUROLOGIC: Denies headache, numbness, tingling, or weakness. PSYCH: Denies depression or anxiety. [facility] Past Medical History Medical History Colon cancer screening Nausea and vomiting in adult GERD (gastroesophageal reflux disease) Dysuria Insomnia Uterine fibroid Perimenopause Obesity Surgical History Surgical History H/O gastric sleeve History of gynecologic surgery 3 yrs ago 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 Personal hx of gastric bypass Social History Social History Smoking status: Never smoker Alcohol intake: current Alcohol use details: 2 per month Substance use: never Substance use type: does not use Lack of Transportation: No Lack of Food: Never True Current Housing: I Have Housing Concerned About Future Housing: No Difficulty Paying Gas/Electric Bills: No Difficulty Paying for Meds: No Currently Unemployed: No Education: Master's Degree or Higher Difficulty w/ Childcare or Family Care: No Living arrangements: alone Occupation/Education: occupation Gender identity (if verbalized by the patient): Female Spiritual care concerns: No Exam Narrative: GENERAL: Well-appearing, well-nourished, and in no acute distress. HEAD: Normocephalic, atraumatic. EYES: EOMI. No redness or drainage. Conjunctivae normal. ENT: Mucous membranes pink and moist. Nares clear. No rhinorrhea. TMs normal bilaterally. Throat normal. Uvula midline. NECK: Normal AROM. Supple. No lymphadenopathy. CHEST: No respiratory distress. Clear to auscultation. HEART: Regular rate and rhythm. No murmur appreciated. Normal peripheral pulses. ABDOMEN: Soft, nontender, nondistended, normal active bowel sounds. MUSCULOSKELETAL: No bony tenderness. EXTREMITIES: Normal range of motion. No edema. SKIN: Warm, dry, no rash. Capillary refill normal. Normal skin turgor. NEURO: No focal deficits. Alert and oriented x3. Gait steady. PSYCH: Normal affect. No signs of depression or anxiety. HENMT: Head: normal to inspection Ears: external ears normal and TM's normal bilaterally Face/Nose/Sinus: Normal external nose present and Normal nares present Face and sinus: normal facial exam and sinuses nontender Mouth: Yes Normal oral and palatal mucosa present Other: mild amount of Clear postnasal drainage. Neck: Neck: no lymphadenopathy Course Course Emergency Course: patient aware that she should take the prednisone with food. Aware of risk of taking prednisone with hx of gastric bypass. Level of Care: Express Care Visit Vital Signs Vital signs: Vital Signs Temperature 98.1 F 08/21/24 14:47 Pulse Rate 85 08/21/24 14:47 Respiratory Rate 16 08/21/24 14:47 Blood Pressure 138/79 08/21/24 14:47 Pulse Oximetry 99 08/21/24 14:47 Oxygen Delivery Room Air 08/21/24 14:47 Temperature 98.1 F 08/21/24 14:47 Pulse Rate 85 08/21/24 14:47 Respiratory Rate 16 08/21/24 14:47 Blood Pressure 138/79 08/21/24 14:47 Pulse Oximetry 99 08/21/24 14:47 Oxygen Delivery Room Air 08/21/24 14:47 MDM - URI/Sore Throat Differential Diagnosis Differential diagnosis: Likely upper respiratory infection, otitis media, sinu sitis, viral infection, bronchitis, influenza and pharyngitis Medical Records Attestation: I reviewed the patient's medical records. Discharge Plan Discharge Clinical Impression: Upper respiratory infection Patient Disposition: Home Condition: Stable Instructions: Antibiotic Form, Upper Respiratory Infection (ED) Additional Instructions: Go straight to ER should your symptoms become worse or should any new symptoms develop Patient Language: Cook Islander Prescriptions: New prednisone 20 mg tablet 20 mg PO DAILY Qty: 18 0RF Rx Instructions: Take 3tabs x 3 days then 2 tabs x 3 days then 2 tabs x 3 days No Action amitriptyline 50 mg tablet 50 mg PO DAILY Linzess 290 mcg capsule 290 mcg PO DAILY hydroxyzine HCl 50 mg tablet 50 mg PO TID buspirone 5 mg tablet 5 mg PO DAILY temazepam 30 mg capsule 30 mg PO DAILY lithium carbonate 300 mg tablet 300 mg PO DAILY Austedo 12 mg tablet 12 mg PO BID albuterol sulfate [Ventolin HFA] 90 mcg/actuation HFA aerosol inhaler 2 puff inhalation QID PRN (Reason: shortness of breath or wheezing) Qty: 8.5 0RF risperidone 4 mg tablet topiramate 25 mg tablet quetiapine 100 mg tablet meclizine 25 mg tablet methylprednisolone 4 mg tablets,dose pack biotin 10,000 mcg capsule 70,000 mcg PO DAILY progesterone micronized 200 mg capsule 200 mg PO QHS Qty: 90 3RF estradiol 0.5 mg tablet 0.5 mg PO DAILY Qty: 90 3RF famotidine [Pepcid] 20 mg tablet 20 mg PO BID 10 Days Qty: 20 0RF Maalox Advanced 1,000-60 mg tablet,chewable 1 tablet PO QID PRN (Reason: indigestion) Qty: 30 0RF omeprazole 40 mg capsule,delayed release(DR/EC) 40 mg PO BID Follow-up/Referrals: Mingo,Marta Manzo, DRIVER [Primary Care Provider] - Time of Disposition: 15:27
== END 2024-08-21 15:39 | disposition home or self-care (01) ==
PROVIDERS: Emergency Provider Registered Nurse; PCP Nurse Practitioner Family
DX: J06.9 Acute upper respiratory infection, unspecified (principal); K21.9 Gastro-esophageal reflux disease without esophagitis; E66.9 Obesity, unspecified; Z68.36 Body mass index [BMI] 36.0-36.9, adult
CPT/HCPCS: 99213; G0463

== ENCOUNTER 2024-09-30 10:04 | Outpatient (CLI) | payer BC, SELFPAY ==
--- NOTE | ~2024-09-30 | MM_ITS ---
EXAMINATION: MM scrn luisa implant BI w austyn HISTORY: Screening mammogram TECHNIQUE: Craniocaudal and mediolateral oblique 3-D tomosynthesis images with implant displacement a nd synthetic 2-D images were generated. Craniocaudal and mediolateral oblique views of the breasts wi thout implant displacement were obtained using full field digital mammography. CAD analysis was submi tted and interpreted. COMPARISON: 09/03/2022 BREAST PARENCHYMAL COMPOSITION: Dense: The breasts are heterogeneously dense, which may obscure small masses FINDINGS: There is no evidence of suspicious mass, calcification, or architectural distortion to sugg est malignancy in either breast. There has been no suspicious interval change. IMPRESSION: 1. No mammographic evidence of malignancy. 2. Recommend routine screening mammography in one year. BI-RADS Category 1: Negative Reviewed, dictated and finalized at location B.
--- OUTSIDE RECORDS SUMMARY | 2024-09-30 10:09 | XMS_ITS | Clinical Summary ---
Author Organization [facility] Facility Address [address] [place] [id number] Care Team Providers Care Forensic Analyst Name Role Phone Junie Cabrera Primary Care Provider [phone] Encounters Date Type Department Care Team Description 09/10/2024 Documentation Only [facility], [address] [id number] John Yuan DO from Last 3 Months [...] 36.7 C (98 F) 03/05/2024 2:21 PM HIDE CLEANER Respiratory Rate 18 06/11/2024 4:01 PM CDT Oxygen Saturation 98% 06/11/2024 4:01 PM CDT Inhaled Oxygen Concentration - - Weight 104 kg (229 lb) 06/11/2024 4:01 PM CDT Height 170.2 cm (5' 7) 06/11/2024 4:01 PM CDT Body Mass Index 35.87 06/11/2024 4:01 PM CDT Plan of Treatment Upcoming Encounters Date Type Department Care Team (Late st Contact Info) Description 12/10/2024 1:30 PM CDT Office Visit [facility], [facility] [address] [place] [phone] John Yuan DO [address] [place] [address] Health Maintenance Due Date Last Done Comments Breast Cancer Screening 1970 Hepatitis B Vaccine (1 of 3 - 19+ 3-dose series) 07/24 Pneumococcal Vaccine: 50+ Years (1 of 2 - PCV) 991 Colorectal Cancer Screening: Annual FOBT 07/24/2020 Colorectal Cancer Screening: Colonoscopy 07/24/2020 Colorectal Cancer Screening: Sigmoidoscopy 07/24/2020 Diabetes: Ophthalmology Exam 12/22/2023 Diabetes: Pedal Pulse Checked 12/22/2023 Diabetes: Sensory Foot Exam 12/22/2023 Diabetes: Visual Foot Exam 12/22/2023 Diabetes: Hemoglobin A1C 08/30/2024 05/30/2024 Influenza Vaccine (#1) 2024 Procedures Procedure Name Priority Date/Time Associated Diagnosis Comments HEMOGLOBIN A1C Routine 05/30/2024 2:51 PM CDT from Last 3 Months or Most Recently Relevant to Health Maintenance Results * Hemoglobin A1c (05/30/2024 2:51 PM CDT) [...] diagnosis of diabetes in children. According to [place] Diabetes Association (ADA) guidelines, hemoglobin A1c <7.0% represents optimal control in non- diabetic patients. Different metrics may apply to specific patient populations. Standards of Medical Care in Diabetes(ADA). 05/30/2024 2:51 PM CDT 05/30/2024 2:59 PM CDT Narrative [facility] - 06/04/2024 1:41 PM CDT FASTING:NO FASTING: NO Resulting Agency Comment Performing Organization Information: Site ID: [id number] [facility] Address: [address] [place] [address] Director: Leyla Espinoza us John Yuan DO LAB BLOOD ORDERABLES Final R esult [facility] See order comments [place] [address] from Last 3 Months or Most Recently Relevant to Health Maintenance Insurance [facility] Care Teams Forensic Analyst Relationship Specialty Start Date End Date Junie Cabrera FNP [address] [place] [phone] PCP - General Psychiatry 03/05/24
--- OUTSIDE RECORDS SUMMARY | 2024-09-30 10:09 | XMS_ITS | Clinical Summary ---
Author Organization [facility] Address [address] [place] [address] Phone Care Team Providers Care Measurement Technician Name Role Phone Unavailable Primary Care Provider [...]
--- OUTSIDE RECORDS SUMMARY | 2024-09-30 10:09 | XMS_ITS | Data Portability ---
Author Organization [place] [facility] [employer], Main Office Address [address] [place] [address] Care Team Providers Care Meat Soaker Name Role Phone ELI SUTHERLAND ZACHARY Primary Care Provider ELI SUTHERLAND ZACHARY Referring Provider SHANTANU WHEELER Primary Care Provider [phone] Assessment Encounter Date Assessment Date Assessment LastModified [...] Organization Details Last Modified Time Details Appointments Any 15 2024 04:00P M Sophia chowdary MD Not available Not available Not available Lab lipid panel, serum 2024 025 [facility] (Lab), [address] [place], [address], 09/02/2024 15:43:10 CBC w/ auto diff 2024 025 [facility] (Lab), [address] [place], [address], 09/02/2024 13:31:21 TSH, serum or plasma 2024 025 [facility] (Lab), [address] [place], [address], 09/02/2024 16:11:23 CMP, serum or plasma 2024 025 [facility] (Lab), [address] [place], [address], 09/02/2024 15:43:21 vitamin B12, serum 2024 025 [facility] (Lab), [address] [place], [address], 09/02/2024 16:43:08 folate, serum 2024 025 [facility] (Lab), [address] [place], [address], 09/02/2024 16:43:11 vitamin D, 25-hydrox y, total, serum [email or web address] (Lab), [address] [place], [address], 09/10/2024 14:16:48 Referral pulmonolo gist referral - Please call patient to schedule an appointme nt. Thank you. 2024 025 [email or web address] Rashi De Oliveira MD, [address] [place], [address], 09/04/2024 09:39:[address] referral - Please call patient to schedule an appointme nt. Thank you. 2024 025 lorri Khan MD, 3 [facility], [address], [address], 05/17/2024 10:25:27 Procedures injection /aspirati on joint/bur sa (PROC) - in office procedure , administe red by provider 2023 024 [email or web address] In-Office Order, Internal Use Only DO Not Attach Compendium DO Not Attach Compendium, Do Not Delete/merge, [id number] 12/12/2023 15:27:46 Surgeries None recorded. Imaging DEXA, axial skeleton - Please call patient to schedule. 2024 [facility] ([facility]), [address], [place], [address], 09/10/2024 14:02:31 Medication Orders silver sulfadiaz ine 1 % topical cream 2024 [facility] #66369, [address] [place], [place], [id number], 04/17/2024 16:22:25 albuterol sulfate HFA 90 mcg/actua tion aerosol inhaler 2024 025 [facility] #90697, [address] [place], [place], [id number], 04/17/2024 16:22:21 ipratropi um bromide 21 mcg (0.03 %) nasal spray 2024 025 [facility] [employer] [facility] #35705, [address] [facility], [place], [place], [id number], 04/17/2024 16:20:25 omeprazol e 40 mg capsule,d elayed release 2024 025 [facility] [employer] [facility] #06787, [address] [place], [place], [id number], 04/17/2024 16:22:24 amitripty line 50 mg tablet 2024 025 [facility], [address] [facility], [place], [place], [id number], 04/17/2024 16:20:21 famotidin e 40 mg tablet 2024 025 [facility] #47958, [address] [place], [place], [id number], 04/17/2024 16:20:19 Patient TargetsNo targets recorded. Patient Instructions Encounter Date Encounter Id Patient Instructions Last Modified By Organization Details Last Modified Time 04/17/2024 [id number] Follow up in 6 months Prescriptions sent to pharmacy Tests: Referral: Recommend: Pneumococcal vaccine Shingles vaccine [email or web address] Not available 04/17/2024 16:20:38 Reason for Referral Neurologist Referral for Malou n in bilateral legs Please call patient to schedule an appointment. Thank you. Referring Physician: Luh Hdez, Internal Medicine, Encounter Date: 04/17/2024 Toe Stripper Referral for D yspnea on exertion Please call patient to schedule an appointment. Thank you. Referring Physician: Sophia Camilo, Internal Medicine, Encounter Date: 08/28/2024 Results Created Date Observation Date Name Description Value Unit Range Abnormal Flag Note LastModifiedBy Organization Detail LastModifiedTime 12/13/19 24 12/13/2023 PPD (priyank fied prote in deriv ative ), skin test TB negati ve Not Available [facility] [address], [place], [address], 12/08/2023 15:00:35 12/13/19 24 12/13/2023 PPD (priyank fied prote in deriv ative ), skin test TB negati ve Not Available [address], [place], [address], 12/08/2023 15:00:35 11/28/19 24 XR, knee No observ ation record ed. [email or web address] [facility] [address] [facility] [address], [place], [address], 11/28/2023 15:28:55 02/04/20 24 02/03/2024 XR, chest , 2 view No observ ation record ed. [email or web address] [facility] [address], [place], [address], 02/05/2024 09:13:26 02/27/20 24 02/27/2024 XR, chest , 2 view No observ ation record ed. [address], [place], [address], 02/29/2024 11:06:38 02/27/20 24 02/27/2024 XR, chest , 2 view No observ ation record ed. [address], [place], [address], 02/29/2024 11:06:50 09/11/19 25 09/10/2024 DEXA, axial skele ton [facility] [address] [place] [address] Patien t Name: ELA SCOTT [facility] Access ion #: [id number] Sex: F : 1970 3 Dictat ed By: EFRAIN CAMPBELL Attend ing Physic chelsy: MALISSA LANG Orderi Physic chelsy: PAM GOODRICH Exam Date: 2024 09:26 AM Exam Name: XR DEXA-H IPS PELVIS SPINE Admitt ing Diagno sis(es ): Examin ation: XR DEXA-H IPS PELVIS SPINE Clinic al Indica tion: Post-m enopau rolf, AP Spine and Dual Femur Compar richard: None. Techni que: Bone minera l densit y was evalua nasir. Findin gs: Lumbar spine (L1-L4 ): BMD: 1.321g /cm2T- Score: 1.0Z-S core: 0.5 Left Total Hip: BMD: 1.134 g/cm2T -Score : 1.0Z-S core: 0.7 Right Total Hip: BMD: 1.089 g/cm2T -Score : 0.6 Z-Scor e: 0.4 The WHO fractu re risk assess ment (FRAX) was utiliz ed and the 10 year probab ility of a major osteop orotic fractu re in this patien t is estima nasir to be 4.1% and 10 year probab ility of a hip fractu re in this patien t is estima nasir to be 0.1%. Impres crystal: Based on World Health Organi zation (WHO) criter ia, this patien t falls within the normal range at lumbar spine and hip levels . Relate d Inform ation: 1. The T-scor e is relati ve to peak bone mass in early adulth ood, while the Z-scor e is relati ve to indivi duals of the same age and sex. 2. The [employer] at[employer] l Societ y for Clinic al Densit ometry recomm ends catego rizing the patien t accord ing to the lowest T-scor e from the total L-spin e , total hip and femora l neck utiliz ing the follow ing World Health Organi zation Criter ia: Normal range: T-scor e of - 1.0 or above. Low bone mass: T-scor e of less than-1 .0 but greate r than -2.5.O steopo bashir: Page 1 [facility] [address] [address] [phone] Patien t Name: ELA SCOTT [facility] Access ion #: [id number] Sex: F : 1970 3 Dictat ed By: EFRAIN CAMPBELL Attend ing Physic chelsy: PAM GOODRICH Physic chelsy: PAM GOODRICH Exam Date: 2024 09:26 AM Exam Name: XR DEXA-H IPS PELVIS SPINE Admitt ing Diagno sis(es ): T-scor e of -2.5 or below. Electr onical ly Signed 025 13:00 SHANNAN Coffey Electr onical ly Signed by: EFRAIN CAMPBELL at 2024 13:00: 00 PM Page 2 INTERFACE [facility] (Imaging) [address] [place], [address], 09/10/2024 14:02:31 09/11/19 25 09/10/2024 imagi ng/di agnos tic resul t No observ ation record ed. [facility] [address] [place], [address], 09/10/2024 14:05:27 Result Notes Documentation Provider Name and Address Organization Details Recorded Time Dexa, Axial Skeleton : [facility] [address] [place] [address] Patient Name: ERIKA SCOTT Sex: F : 1970 Dictated By: DARWIN CAMPBELL Attending Physician: JEVON MCKEON Ordering Physician: SOPHIA CAMILO Exam Date: 09/10/2024 09:26 AM Exam Name: XR DEXA-HIPS PELVIS SPINE Admitting Diagnosis(es): Examination: XR DEXA-HIPS PELVIS SPINE Clinical Indication: Post-menopausal, AP Spine and Dual Femur Comparison: None. Technique: Bone mineral density was evaluated. Findings: Lumbar spine (L1-L4): BMD: 1.321g/yo4O-Qdnmz: 1.0Z-Score: 0.5 Left Total Hip: BMD: 1.134 g/wq2A-Cqugn: 1.0Z-Score: 0.7 Right Total Hip: BMD: 1.089 g/mq1Q-Lmwhw: 0.6 Z-Score: 0.4 The WHO fracture risk assessment (FRAX) was utilized and the 10 year probability of a major osteoporotic fracture in this patient is estimated to be 4.1% and 10 year probability of a hip fracture in this patient is estimated to be 0.1%. Impression: Based on World Health Organization (WHO) criteria, this patient falls within the normal range at lumbar spine and hip levels. Related Information: 1. The T-score is relative to peak bone mass in early adulthood, while the Z-score is relative to individuals of the same age and sex. 2. The International Society for Clinical Densitometry recommends categorizing the patient according to the lowest T-score from the total L-spine , total hip and femoral neck utilizing the following World Health Organization Criteria: Normal range: T-score of - 1.0 or above. Low bone mass: T-score of less than-1.0 but greater than -2.5.Osteoporosis: Page 1 [facility] [address] [place] [address] Patient Name: ERIKA SCOTT Sex: F : 1970 Dictated By: DARWIN CAMPBELL Attending Physician: SOPHIA CAMILO Ordering Physician: SOPHIA CAMILO Exam Date: 09/10/2024 09:26 AM Exam Name: XR DEXA-HIPS PELVIS SPINE Admitting Diagnosis(es): T-score of -2.5 or below. Electronically Signed 09/10/2024 13:00 SHANNAN GRANADOS Page 2 Not Available [facility] 09/10/2024 14:02:31 Problems Name Problem SNOMED Code Status Onset Date Resolution Date Notes Provider Name and Address Organization Details Recorded Time Occupation -related stress disorder 09385393 Active 2021 Luh Hdez APRN [address] [facility], [facility] [address], [place], [address] , [facility] [employer] [facility] 5 13:55:01 Closed fracture of left foot 0207973436968 9103 Active Not Available [facility] 3 16:04:26 Acne 29074622 Active Not Available [facility] 3 16:04:26 Fracture of phalanx of finger 48296883 Active Not Available [facility] 3 16:04:26 Cyclical vomiting syndrome 76511791 Active 2021 Not Available [facility] 3 16:04:26 Morbid obesity 821346878 Active 2018 Luh Hdez APRN [address], [place], [address] , [employer] 5 13:55:10 Hypertrigl yceridemia 503249296 Active Luh Hdez APRN [address], [place], [address] , [employer] 5 13:55:16 Current tear of medial cartilage AND/OR meniscus of knee Active Not Available [facility] 3 16:04:26 Vitamin D deficiency 54673981 Active 2016 Luh Hdez APRN [address], [address], [place], [address] , [employer] 5 13:54:38 Chronic maxillary sinusitis 89620385 Active 2021 Not Available [facility] 3 16:04:26 Hypertensi ve disorder 43634389 Active Luh Hdez APRN [address], [place], [address] , [employer] 5 13:55:19 Osteoarthr itis 080764888 Active Luh Hdez APRN [address], [place], [address] , [employer] 5 13:56:03 Hypothyroi dism 44499814 Active Luh Hdez APRN [address], [place], [address] , [employer] 5 13:55:12 History of bariatric surgical procedure 035714971 Active Luh Hdez APRN [address], [place], [address] , [employer] 5 13:55:21 Allergic rhinitis 94355776 Active 2021 Not Available [facility] 3 16:04:26 Otitis media 51471871 Active Not Available [facility] 3 16:04:26 Increased liver function 80479839 Active Not Available [facility] 3 16:04:26 Schizoaffe ctive disorder 72155775 Active Luh Hdez APRN [address], [place], [address] , [employer] 5 13:54:50 Acid reflux 181983914 Active Not Available [facility] 3 16:04:26 Hemorrhoid s 65107900 Active Not Available [facility] 3 16:04:26 Diabetes mellitus 48815701 Active Luh Hdez APRN [address], [place], [address] , [employer] 5 16:16:08 Cyst of ovary 18104033 Active Not Available [facility] 3 16:04:26 Cerebrospi nal fluid rhinorrhea 97827453 Active 2021 Not Available [facility] 3 16:04:26 History of traumatic brain injury 3870367939868 0 Active 2021 Luh Hdez APRN [address], [place], [address] , [employer] 5 13:55:27 Pneumonia caused by SARS-CoV-2 7618829400573 58047 Active 2022 Not Available [facility] 3 16:04:26 Chronic idiopathic constipati on 89155932 Active 2022 Luh Hdez APRN [address], [place], [address] , [employer] 5 13:54:36 Dyspnea on exertion 14776948 Active 2022 Sophia ledesma MD [address], [place], [address] , [employer] 5 17:37:40 Bronchiect asis 57166532 Active 2022 Rashi De Oliveira MD [address], [address], [place], [address] , [place] [facility] 3 15:33:26 Stricture of esophagus 38107890 Active 2022 Luh Hdez APRN [address], [address], [place], [address] , [place] [facility] 5 13:54:45 Pain of bilateral knee joints 4445847092816 04 Active 2022 MARICRUZ Enrique, [place] [facility] 3 11:19:22 Bilateral osteoarthr itis of knees 6933033308311 07 Active 2022 Luh Hdez APRN [address], [address], [place], [address] , [place] [facility] 5 13:54:21 CT of chest abnormal 7874557039704 9102 Active 2022 Kaity Gutierrez MD [address], [address], [place], [address] , [place] [facility] 3 12:52:31 Lesion of face 794595129 Active 2022 ELI Nieto [address], [address], [place], [address] , [place] [facility] 3 16:08:27 Obesity 942148857 Active 2022 Luh Hdez APRN [address], [address], [place], [address] , [place] [facility] 5 13:55:05 Acute sinusitis 70810216 Active 2022 JAMES Romano, [place] [facility] 5 14:54:22 Esophageal dysphagia 14921605 Active 2022 Luh Hdez APRN [address], [address], [place], [address] , [place] [facility] 5 13:55:33 Burn of skin 486929687 Active 2022 BIBIANA Nieto-C [address], [address], [place], [address] , [facility] [employer] [facility] 3 16:08:12 Gastroesop hageal reflux disease 559709083 Active 2023 Luh Hdez APRN [address], [address], [place], [address] , [facility] [employer] [facility] 5 13:55:29 Vertigo 650572167 Active 2023 Luh Hdez APRN [address], [address], [place], [address] , [facility] [employer] [facility] 5 13:54:42 Upper respirator y infection 87207577 Active 2023 MARSHA Colunga [address], [address], [place], [address] , [facility] [employer] [facility] 4 20:48:54 Viral gastroente ritis 554985177 Active 2023 BIBIANA Nieto-C [address], [address], [place], [address] , [facility] [employer] [facility] 4 16:21:40 Pruritic rash 59088411 Active 2023 BIBIANA Nieto-C [address], [address], [place], [address] , [facility] [employer] [facility] 4 16:24:24 Nausea 698892381 Active 2023 BIBIANA Nieto-C [address], [address], [place], [address] , [facility] [employer] [facility] 4 14:44:17 Cough 96646620 Active 2023 Gerber Sutherland [employer] [address], [place], [address] , [facility] [employer] [facility] 4 14:44:45 Glomerular filtration rate below reference range 661736402 Active 2023 ELI Nieto [address], [address], [address] , [facility] [employer] [facility] 4 11:33:09 Abnormal posture 85107025 Active 2023 Luh Hdez APRN [address] [facility], [address], [address] , [facility] [employer] [facility] 5 13:54:11 Nausea and vomiting 32623629 Active 2023 Kaity Gutierrez MD [address], [address], [address] , [facility] [employer] [facility] 4 15:59:45 Dyspnea 188152641 Active 2024 Luh Hdez APRN [address], [address], [address] , [facility] [employer] [facility] [employer] [facility] 5 16:18:43 Pain in bilateral legs 4184819230097 9108 Active 2024 Luh Hdez APRN [address], [address], [address] , [facility] [employer] [facility] 5 16:24:37 Chronic schizophre lei 62441095 Active 2024 Sophia ledesma MD [address], [address], [address] , [facility] [employer] [facility] 5 17:35:58 Vitamin D below reference range 998361618 Active 2024 Sophia ledesma MD [address], [address], [address] , [facility] [employer] [facility] 5 17:39:03 Notes:Medical History: Acne TBI Left frontal, parietal, [...] Bilateral breast implants 1994 Gastric sleeve surgery 2019 Occupational History: caseworker Therapist Problem Notes None recorded. Procedures Surgical History Date Name Laterality Status Provider Name and Address Organization Details Recorded Time 09/02/19 Most Recent Mammogram completed Marivel Mcnally [facility] [employer] 11/14/2022 15:58:01 02/08/20 19 gastrectomy completed Not Available [facility] 05/19/19 00:52:23 ENGINE ASSEMBLY SUPERVISOR Surgery completed Not Available [facility] 05/18/2022 00:52:23 bronchoscopy completed Darling Whitney RN [facility] [employer] 09/06/2022 11:47:32 Imaging Results None recorded. Procedure Notes None recorded. Medical Equipment None Reported. Allergies Allergen ID Allergen Name Allergen Category Reaction Reaction Severity Criticality Documentation Date Start Date Code Code System Note Provider Name and Address Organization Details Recorded Time 1692 cow milk allergeni c extract food,medi cation Not available Not available Not available 05/18/2022 23741 5 RxNorm Not Available [facility] 3 01:09:58 1694 codeine medicatio n Not available Not available Not available 05/18/2022 2670 RxNorm Other react ions and sever ities : 'Adve rse react ion to subst ance - Sever e'. Not Available [facility] 3 01:09:58 1695 acetamino phen medicatio n anaphylax is severe Not available 05/18/2022 161 RxNorm Per patie nt, this is a mista ke Not Available [facility] 3 01:09:58 63121 acetamino phen / hydrocodo ne medicatio n Not available Not available Not available 09/15/2022 55961 2 RxNorm MARICRUZ Enrique, [place] [employer] [facility] [employer] 3 11:18:00 Medications Name Sig Start Date [...] completed Not Available Not Available Not Available Rea Thyroid 60 mg tablet Take by oral [...] MOUTH THREE TIMES DAILY NEEDED FOR COUGH active Not Available Not Available No t Available risperido ne 4 mg tablet TAKE [...] t Available famotidin e 40 mg tablet TAKE 1 TABLET BY MOUTH EVERY DAY active Not Available Not Available No t Available prednison e 20 mg tablet TAKE 2 TABLETS BY MOUTH DAILY FOR 5 DAYS 08/28 completed Not Available Not Available Not Available Tubersol 5 tub. unit/0.1 mL intraderm [...] completed Not Available Not Available Not Available acetamino phen 300 mg-codein e 30 mg tablet TAKE 1 TO 2 TABLETS BY MOUTH EVERY 4 TO 6 HOURS NEEDED FOR PAIN active Not Available Not Available No t Available amlodipin e 5 mg tablet Take [...] tablet TAKE 1 TABLET BY MOUTH DAILY AT BEDTIME active Not Available Not Available No t Available risperido ne 3 mg tablet active Not [...] mg rectal supposito ry 1 supposit ory MO qday prn constipa tion 03/02 completed Not Available Not Available Not Available risperido ne 2 mg tablet TAKE 1 TABLET BY MOUTH [...] Not Available temazepam 15 mg capsule TAKE 1 CAPSULE BY [...] administ ered by the provider 12/24 completed [facility]: 0003-049 07-07 Not Available Not Available Not Available meclizine 25 mg tablet TAKE 1 TABLET BY MOUTH TWICE DAILY NEEDED FOR DIZZINES S active Not Available Not Available No t [...] completed Not Available Not Available Not Available Rea Thyroid 30 mg tablet Take 1 tablet [...] 4 mg tablets in a dose pack FOLLOW PACKAGE DIRECTIO NS 08/28 completed Not Available Not Available Not Available [...] BY MOUTH TWICE DAILY FOR 7 DAYS 08/28 completed Not Available Not Available Not Available ipratropi um bromide 21 mcg (0.03 [...] BY MOUTH TWICE DAILY FOR 7 DAYS 08/28 completed Not Available Not Available Not Available [...] office by the doctor 05/28 completed NDC: [id number] 001 Not Available Not Available Not Available [...] by the provider 01/18 completed NDC: 0409-427 6-17 Not Available Not Available Not Available quetiapin [...] Myrbetriq 25 mg tablet,ex tended release active [facility] Not Available Not Available Not Available Linzess 145 mcg capsule Take 1 capsule every day by oral route. active Not Available Not Available No t Available Linzess 290 mcg capsule TAKE 1 CAPSULE BY MOUTH EVERY DAY NEEDED active Not Available Not Available No t Available lidocaine 3 %-hydroco rtisone 2.5 % (7 gram) rectal gel INSERT 1 APPLICAT ORFUL RECTALLY TWICE DAILY NEEDED 09/01 completed Not Available Not Available Not Available Monovisc 88 mg/4 mL intra-art icular syringe Take 4 mL by intraart icular route as directed , for bilatera l knee osteoart hritis. 2024 active Not Available Not Available Not Avai lable Saxenda 3 mg/0.5 mL (18 mg/3 mL) subcutane ous pen injector Inject dose daily 2015 active Not Available Not Available Not Avai lable Procto-Me d HC 2.5 % topical cream [...] Body weight Body temperature Heart rate Systolic And Diastolic Provider Name and Address Organization Details Last Updated DateTime 170.18 cm 35.6 kg/m2 974378. 47 g 97.6 [degF] 84 /min 124/76 mm[Hg] JAMES Romnao [facility] [employer] 5 16:05:43 Date Recorded Body height Body mass index (BMI) Body weight Body temperature Heart rate Oxygen saturation Oxygen saturation in Arterial blood by Pulse oximetry Systolic And Diastolic Provider Name and Address Organization Details Last Updated DateTime 170.18 cm 34.9 kg/m2 030423. 1 g 98.4 [degF] 86 /min 98 % 98 % 140/78 mm[Hg] Senait Martinez MA [facility] [employer] 16:26:57 Date Recorded Body height Provider Name an d Address Organization Details Last Updated DateTime 09/02/2024 170.18 cm Annia [place] [employer] [facility] [facility] [employer] [facility] 09/02/2024 09:56:18 Date Recorded Body height Systolic And Diastolic Provider Name and Address Organization Details Last Updated DateTime 12/11/2023 170.18 cm 160/80 mm[Hg] Angi Joseph RN [facility], [facility]–1983 [employer] 12/11/2023 16:53:19 Date Recorded Body height Body mass index (BMI) Body weight Provider Name and Address Organization Details Last Updated DateTime 12/12/2023 170.18 cm 31.3 kg/m2 72504.47 g Loyda Chan CNA [place] [employer] [facility] [employer] 12/12/2023 15:26:38 Social History Question Answer Notes LastModified by Organizat ion Details LastModified Time Tobacco Smoking Status Former [facility]oker quit Not Available [facility] 05/18/2022 00:51:30 Do You Have An Advance Directive? No MIGRATION.15298 [id number] Information not available 05/18/2022 What Is Your Level Of Caffeine Consumption? Occasional [email or web address] Information not available 11/14/2022 How Much Tobacco Do You Chew? None MIGRATION.73277 84739 Information not available 05/18/2022 In The 14 Days Before Symptom Onset, Have You Had Close Contact With A Laboratory-confir med COVID-19 While That Case Was Ill? No MIGRATION.86528 88877 Information not available 05/18/2022 In The 14 Days Before Symptom Onset, Have You Had Close Contact With A Person Who Is Under Investigation For COVID-19 While That Person Was Ill? No MIGRATION.44263 59615 Information not available 05/18/2022 What Type Of Diet Are You Following? REGULAR MIGRATION.90164 16394 Information not available 05/18/2022 Which Illicit Or Recreational Drugs Have You Used? No MIGRATION.87452 40418 Information not available 05/18/2022 Do You Have An Electrostatic Air Filter? No Information not available 07/12/2022 When Did You Quit Smoking? 16+yearssince lastcigarette Information not available 08/28/2024 Are There Any Guns Present In Your Home? No MIGRATION.32907 82307 Information not available 05/18/2022 Do You Have A Humidifier? No Information not available 07/12/2022 Do You Use Insect Repellent Routinely? No Information not available 08/28/2024 Where Do You Live? Apartment Information not available 07/12/2022 Are You Following A Low Salt Diet? No MIGRATION.21122 60101 Information not available 05/18/2022 Do You Have A Medical Power Of Senior Investment Manager? No MIGRATION.23651 09488 Information not available 05/18/2022 Do You Have Moisture Problems In Your Home? No Information not available 07/12/2022 What Was The Date Of Your Most Recent Tobacco Screening? 08/28/2024 Information not available 08/28/2024 Do You Have Any Pets? No Information not available 07/12/2022 What Is Your Relationship Status? Single MIGRATION.62163 83136 Information not available 05/18/2022 Do You Use Your Seat Belt Or Car Seat Routinely? Yes MIGRATION.15059 12127 Information not available 05/18/2022 Do You Have Smoke And Carbon Monoxide Detectors In Your Home? Yes Isn't Working At The Moment Information not available 07/12/2022 At What Age Did You Start Smoking Tobacco? 1 MIGRATION.06838 31997 Information not available 05/18/2022 Are You Passively Exposed To Smoke? No Information no t available 07/12/2022 How Much Tobacco Do You Smoke? No MIGRATION.37651 18168 Information not available 05/18/2022 Do You Use Sunscreen Routinely? [place] Information not available 07/12/2022 How Many Years Have You Smoked Tobacco? 7 MIGRATION.08084 93752 Information not available 05/18/2022 Have You Recently Traveled Abroad? No MIGRATION.00196 27215 Information not available 05/18/2022 Do You Have Any Dietary Restrictions? Yes Milk/ All Dariy MIGRATION.47128 57239 Information not available 05/18/2022 Sex: Female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
== END 2024-09-30 10:05 | disposition home or self-care (01) ==
LOC: ANHIMG 10:06
PROVIDERS: PCP Internal Medicine; Visit Provider Obstetrics & Gynecology
DX: Z12.31 Encounter for screening mammogram for malignant neoplasm of breast (principal)
CPT/HCPCS: 77063; 77067